=== PATIENT | male | born 1950 | race Caucasian/White ===

== ENCOUNTER 2020-01-06 10:02 | Emergency (ER) | payer MEDICAID, SELFPAY ==
[2020-01-06] VITALS (8 sets, daily range): BP systolic 112–144; BP diastolic 65–80; PULSE 61–78; RESP 14–24; TEMP 36.6–37.1; O2SAT 92–98; BMI 27.3
--- NOTE | 2020-01-06 10:03 | HMH.EDGENADL ---
ED Disposition Clinical Impression: Scalp contusion Qualifiers: Encounter type: initial encounter Qualified Code(s): S00.03XA - Contusion of scalp, initial encounter Scalp abrasion Qualifiers: Encounter type: initial encounter Qualified Code(s): S00.01XA - Abrasion of scalp, initial encounter Fall Qualifiers: Encounter type: initial encounter Qualified Code(s): W19.XXXA - Unspecified fall, initial encounter Disposition: Home Health Service Condition on Discharge: Good Instructions: How to Prevent Falls, DI for Closed Head Injury Additional Instructions: Additional instructions for HEAD INJURY: See your physician as soon as possible for further evaluation. Return immediately if severe headache, vomiting, problems with vision or speech, numbness or weakness of the extremities, or severe neck pain. Referrals: Freddie Willis MD [Primary Care Provider] - - Critical Care Critical Care Time: No Attestation: On , the high probability of a clinically significant, sudden or life threatening deterioration of the following system(s) required my full and direct attention, intervention and personal management. The time I documented below is in addition to time spent performing reported procedures but includes the following listed in this critical care notation. Medical Decision Making - Medical Records Medical records reviewed: Yes: I reviewed the patient's medical records. MR Comment: No prior ED visits or admissions. - Nicolás Inquiry Pt receiving controlled substance: No Vital Signs: 01/06/20 10:03 01/06/20 10:56 01/06/20 11:03 Temperature 98.7 F Temperature Source Oral Pulse Rate [Radial] 78 70 67 Respiratory Rate 14 24 18 Blood Pressure [Right Arm] 137/80 119/72 112/71 Blood Pressure Mean [Right Arm] 99 87 84 Blood Pressure Source [Right Arm] Automatic Cuff Automatic Cuff Blood Pressure Position [Right Arm] Sitting Sitting Sitting 02 Sat by Pulse Oximetry 98 93 L 92 L Oxygen Delivery Method Room Air Room Air Room Air 01/06/20 11:30 Temperature Temperature Source Pulse Rate [Radial] 65 Respiratory Rate 18 Blood Pressure [Right Arm] 114/68 Blood Pressure Mean [Right Arm] 83 Blood Pressure Source [Right Arm] Automatic Cuff Blood Pressure Position [Right Arm] Sitting 02 Sat by Pulse Oximetry 94 L Oxygen Delivery Method Room Air - ECG Data Tracing #1 EKG interpreted by Alexis Kasper MD: Rhythm: sinus Rate: 76 [place]: normal Ectopy: none Conduction: normal ST Segment Changes: none T Wave Changes: none Q Waves: none No evidence of acute ischemia or injury Baseline wander present, but I consider the EKG adequate for accurate interpretation. - Physician Consults Physician Consulted: Lazaro Time: 11:40 Reason -: Pt condition Comment/Response: Return to [facility] [address] General Adult HPI - General Chief complaint: Fall Stated complaint: FALL Time Seen by Provider: 01/06/20 10:03 - History of Present Illness HPI narrative: Brought in by ambulance from [facility] for a fall. He states he was in the bathroom, lost his footing and stumbled and fell. Denies being dizzy or having syncope. Says that he hit the back of his head. He remembers the fall. Denies headache or neck pain. Denies any injury to hips or wrists or any other part of his body. He was noted to have a bump on the back of his head and was sent to make sure he does not have a concussion . - Related Data Home Medications Medication Instructions Recorded Confirmed Benztropine Mesylate [Cogentin 1mg 1 mg PO TID 01/06/20 01/06/20 tablet] Escitalopram Oxalate [Lexapro] 10 mg PO ONCE 01/06/20 01/06/20 Ibuprofen [Motrin 800mg Tab] 800 mg PO Q8HP PRN 01/06/20 01/06/20 dilTIAZem HCL [Diltiazem 24Hr ER] 360 mg PO ONCE 01/06/20 01/06/20 diphenhydrAMINE HCL [Benadryl 25mg 25 mg PO Q4-6H 01/06/20 01/06/20 Capsule] haloperidoL [Haldol 5mg tablet] 5 mg PO ONCE 01/06/20 01/06/20 haloperidoL [Hald
--- NOTE | 2020-01-06 10:11 | CT_ITS ---
PROCEDURE: CT HEAD/BRAIN WO CON CLINICAL INDICATION: fell Head injury with headache/pain, contusion, abrasion or hematoma COMPARISON: No exams were available for comparison TECHNIQUE: Axial images obtained. All CT scans at the facility use one or more dose reduction, viz: automated exposure control, ma/kV adjustment per patient size (including targeted exams where dose is matched to indication, i.e. head), or iterative reconstruction technique. FINDINGS: No midline shift, mass effect, intracranial hemorrhage, hydrocephalus, or extra-axial fluid collection is evident. There is generalized atrophy with hypoattenuation of the periventricular white matter consistent with microangiopathic changes. The calvarium has an unremarkable appearance. No mastoid effusion. No sinus air-fluid level. There is some mild soft tissue swelling in the occipital region of the scalp. Mild mucosal thickening is present within the ethmoid sinuses. IMPRESSION: No acute intracranial finding Dictated by: Tino Vergara MD 01/06/2020 10:51 Tino Vergara MD in [place] 01/06/2020 10:51
--- NOTE | 2020-01-06 10:12 | CT_ITS ---
PROCEDURE: CT CERVICAL SPINE WO CON CLINICAL INDICATION: fell Neck injury with pain, contusion/abrasion or hematoma, cervical sprain/strain the COMPARISON: No exams were available for comparison TECHNIQUE: Axial images obtained with sagittal and coronal reformats. All CT scans at the facility use one or more dose reduction, viz: automated exposure control, ma/kV adjustment per patient size (including targeted exams where dose is matched to indication, i.e. head), or iterative reconstruction technique. Axial spiral CT scanning performed of the cervical spine beginning at the base of the skull and continuing to the upper T-spine. 3-D multiplanar reconstruction with 3-D manipulation of volumetric data set in image rendering was completed by the radiologist and/or technologist with the supervision of the radiologist on independent workstation. FINDINGS: There is normal alignment with mild multilevel cervical spondylosis. No acute fracture or dislocation is evident. Degenerative spurring noted at the atlantoaxial junction with osteosclerosis. C2-C3: Small central disc osteophyte complex slightly eccentric to the right with degenerative disc disease. C3-C4: Degenerate disc disease with prominent facet and uncovertebral hypertrophy on the right with right paracentral and foraminal disc osteophyte complex with canal stenosis and severe right lateral recess and foraminal narrowing. C4-C5: Degenerate disc disease with small central disc osteophyte complex C 5 C6: Degenerative disc disease with endplate ridging C6-C7: Degenerate disc disease with endplate ridging and left-sided foraminal lateral recess narrowing. Lung apices are clear. IMPRESSION: 1. No acute fracture. 2. Multilevel cervical spondylosis as detailed above. Dictated by: Tino Vergara MD 01/06/2020 10:55 Tino Vergara MD in [facility] 01/06/2020 10:55
--- NOTE | 2020-01-06 10:13 | ECG_ITS ---
APPROVED REPORT Exam: Resting ECG HR:76 bpm ECG Measurements Heart Rate 76 AXES DE 120 P 71 QRSd 92 QRS -18 QT 436 T 42 QTc 490 Conclusion Normal sinus rhythm Nonspecific T wave abnormality Prolonged QT Abnormal ECG Electronically signed by : Laurent Singh, 01/06/2020 19:04:52
--- NOTE | 2020-01-06 10:24 | PC.NURSE ---
Patient going to radiology
--- NOTE | 2020-01-06 10:46 | PC.NURSE ---
Patient returning from radiology
--- NOTE | 2020-01-06 11:52 | PC.NURSE ---
Calling [facility] to give report and let them known he is ready.
== END 2020-01-06 12:46 | disposition home health service (06) ==
PROVIDERS: Emergency Provider Emergency Medicine; PCP Emergency Medicine
DX: S00.03XA Contusion of scalp, initial encounter (principal); S00.01XA Abrasion of scalp, initial encounter; W01.0XXA Fall on same level from slipping, tripping and stumbling without subsequent striking against object, initial encounter; Y92.192 Bathroom in other specified residential institution as the place of occurrence of the external cause; Z79.899 Other long term (current) drug therapy
CPT/HCPCS: 70450; 72125; 93005; 99284

== ENCOUNTER 2020-03-04 16:12 | Inpatient (IN) | payer OTHER, SELFPAY ==
[2020-03-04 16:13] VITALS: BP 125/95; PULSE 98; RESP 18; TEMP 37.8; O2SAT 98; BMI 25.7; BMI 257659.5
[2020-03-04 16:32] VITALS: BP 133/92; PULSE 96; O2SAT 95
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
[2020-03-04 17:32] LABS: Basophils % 0.3 % (0.1-2.0); Eosinophils # 0.1 K/mm3 (0.0-0.4); Hematocrit 40.3 % (42.0-52.0); Hemoglobin 13.1 g/dL (14.1-18.0); Lymphocytes # 1.1 K/mm3 (0.7-4.5); Lymphocytes % 14.9 % (10-50); Mean Corpuscular HGB Conc 32.6 g/dL (31.8-35.4); Mean Corpuscular Hemoglobin 28.6 pg (27.0-31.2); Mean Corpuscular Volume 87.6 fl (80-94); Mean Platelet Volume 8.5 fl (7.4-10.4); Monocytes # 0.4 K/mm3 (0.1-1.0); Monocytes % 5.4 % (1.7-9.3); Neutrophils # 5.8 K/mm3 (1.8-7.8); Neutrophils % 78.4 % (37.0-80.0); Platelet Count 159 K/mm3 (142-424); Red Cell Distribution Width 13.5 % (11.5-17.5); White Blood Count 7.5 K/mm3 (4.8-10.8)
[2020-03-04 17:38] LABS: Chloride 103 mmol/L (98-107); Potassium 3.6 mmoL/L (3.5-5.1); Sodium 139 mmol/L (136-145)
[2020-03-04 17:41] LABS: Alanine Aminotransferase 17 U/L (12-78); Albumin Level 3.9 g/dl (3.5-5.0); Albumin/Globulin Ratio 1.2 (1.1-1.8); Alkaline Phosphatase 69 U/L (38-126); Anion Gap 9.6 mEq/L (5-15); Aspartate Amino Transferase 27 U/L (17-59); Bilirubin,Total 0.9 mg/dl (0.2-1.3); Blood Urea Nitrogen 14 mg/dl (9-20); Carbon Dioxide 30 mmol/L (22.0-30.0); Creatinine Clearance Estimated 86 mL/min (50-200); Estimated Glomerular Filt Rate 96 ml/min (>60); GFR (African American) 116 ML/MIN (>60); Globulin 3.3 g/dL (1.3-3.2); Total Protein,Serum 7.2 g/dl (6.3-8.2)
[2020-03-04 17:42] LABS: Calcium 9.3 mg/dl (8.4-10.2); Glucose 117 mg/dl (74-100)
[2020-03-04 17:43] VITALS: BP 137/91; PULSE 93
--- NOTE | 2020-03-04 17:51 | HMH.EDGENADL ---
ED Disposition Clinical Impression: Closed left hip fracture Qualifiers: Encounter type: initial encounter Qualified Code(s): S72.002A - Fracture of unspecified part of neck of left femur, initial encounter for closed fracture Pulmonary emboli Qualifiers: Pulmonary embolism type: unspecified Chronicity: acute Acute cor pulmonale presence: without acute cor pulmonale Qualified Code(s): I26.99 - Other pulmonary embolism without acute cor pulmonale Disposition: Admitted As Inpatient Condition on Discharge: Good - Critical Care Critical Care Time: No Attestation: On 03/04/20, the high probability of a clinically significant, sudden or life threatening deterioration of the following system(s) required my full and direct attention, intervention and personal management. The time I documented below is in addition to time spent performing reported procedures but includes the following listed in this critical care notation. Medical Decision Making - Nicolás Inquiry Pt receiving controlled substance: Yes Nicolás was queried for this patient: No Reason not queried -: Emergent pt cond-no time Risks and benefits of using a controlled substance: were not discussed with pt by me Vital Signs: 03/04/20 16:13 03/04/20 16:32 03/04/20 17:43 Temperature 100.1 F H Temperature Source Oral Pulse Rate [Radial] 98 H 96 H 93 H Respiratory Rate 18 Blood Pressure [Right Arm] 125/95 H 133/92 H 137/91 H Blood Pressure Mean [Right Arm] 105 105 106 Blood Pressure Position [Right Arm] Sitting 02 Sat by Pulse Oximetry 98 95 Oxygen Delivery Method Room Air Room Air - Lab Data Lab results reviewed: Yes: I reviewed the patient's lab results. Lab Results 03/04/20 17:22: WBC 7.5, RBC 4.60, Hgb 13.1 L, Hct 40.3 L, MCV 87.6, MCH 28.6, MCHC 32.6, RDW 13.5, Plt Count 159, MPV 8.5, Neut % (Auto) 78.4, Lymph % (Auto) 14.9, [place] % (Auto) 5.4, Eos % (Auto) 1.0, Baso % (Auto) 0.3, Neut # (Auto) 5.8, Lymph # (Auto) 1.1, [place] # (Auto) 0.4, Eos # (Auto) 0.1, Baso # (Auto) 0.0 03/04/20 17:22: Sodium 139, Potassium 3.6, Chloride 103, Carbon Dioxide 30, Anion Gap 9.6, BUN 14, Creatinine 0.80, Estimated Creat Clear 86, Estimated GFR 96, Est GFR ( Amer) 116, Glucose 117 H, Calcium 9.3, Total Bilirubin 0.9, AST 27, ALT 17, Alkaline Phosphatase 69, Troponin I < 0.01, Total Protein 7.2, Albumin 3.9, Globulin 3.3 H, Albumin/Globulin Ratio 1.2 03/04/20 17:22: SARS-CoV-2 IgG Ab (Rapid) Negative, SARS-CoV-2 IgM Ab (Rapid) Negative Result diagrams: 03/04/20 17:22 03/04/20 17:22 Orders (Tests/Meds): ED MEDICATIONS Generic Name Dose Route Start Last Admin Trade Name Freq PRN Reason Stop Dose Admin Iopamidol 75 ml 03/04/20 19:06 03/04/20 19:08 Iopamidol-370 (76%);100ml Bottle IV 03/04/20 19:07 75 ml ONCE ONE Administration Sodium Chloride 50 ml 03/04/20 19:06 03/04/20 19:08 0.9 % Sodium Chloride 50 Ml Vial IV 03/04/20 19:07 50 ml ONCE ONE Administration Sodium Chloride 10 ml 03/04/20 19:06 03/04/20 19:08 Sodium Chloride 0.9% 10ml Syr (Rad Only) IV 03/04/20 19:07 10 ml ONCE ONE Administration Discontinued Medications Generic Name Dose Route Start Last Admin Trade Name Freq PRN Reason Stop Dose Admin Morphine Sulfate 4 mg 03/04/20 17:57 03/04/20 18:08 Morphine 4mg/Ml Syringe IV 03/04/20 17:58 4 mg ONCE ONE Administration Ondansetron HCl 4 mg 03/04/20 17:57 03/04/20 18:08 Ondansetron 4mg/2ml Vial IV 03/04/20 17:58 4 mg ONCE ONE Administration ORDERS Category Date Time Status CT angio chest Stat Cat Scan 03/04/20 18:23 Taken Femur XR left 2 views [XR femur LT 2V] Stat Exams 03/04/20 17:56 Taken Full Resp Panel w/COVID ([facility]) Routine Lab 01/28/21 18:53 Ordered Troponin I Q3H Lab 03/04/20 19:41 Received Troponin I Q3H Lab 03/04/20 22:45 Ordered Urinalysis and Microscopic Stat Lab 03/04/20 16:32 Ordered - Radiology Data #1 Image(s): Chest, Hip, Femur Image Review
[2020-03-04 17:54] LABS: Troponin I < 0.01 ng/ml (0.00-0.034)
--- NOTE | 2020-03-04 17:56 | XR_ITS ---
PROCEDURE: XR FEMUR LT 2V CLINICAL INDICATION: fall, pain Posttraumatic pain COMPARISON: CR XR HIP LT 2-3V W/PELVIS from 03/04/2020 FINDINGS: There is a minimally displaced intertrochanteric fracture of the femur. The mid distal aspect of the femur shows no acute finding. Mild osteoarthritic changes are present knee. IMPRESSION: Minimally displaced intertrochanteric fracture of the left hip Dictated by: Tino Vergara MD 03/05/2020 05:51 Tino Vergara MD in [place] 03/05/2020 05:51
[2020-03-04 18:00] LABS: Coronavirus 19 IgG Antibody Negative (Negative); Coronavirus 19 IgM Antibody Negative (Negative)
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
[2020-03-04 19:55] LABS: Adenovirus,PCR Not Detected (NotDetected); Bordetella Pertussis Not Detected (NotDetected); Chlamydophila Pneumoniae, PCR Not Detected (NotDetected); Coronavirus 19, PCR Not Detected (NotDetected); Coronavirus 229E Not Detected (NotDetected); Coronavirus NL63 Not Detected (NotDetected); Coronavirus OC43 Not Detected (NotDetected); Coronovirus HKU1,PCR Not Detected (NotDetected); Human Metapneumovirus Not Detected (NotDetected); Influenza A, PCR Not Detected (NotDetected); Influenza AH1, 2009 Not Detected (NotDetected); Influenza AH1, PCR Not Detected (NotDetected); Influenza AH3,PCR Not Detected (NotDetected); Influenza B, PCR Not Detected (NotDetected); Mycoplasma Pneumoniae, PCR Not Detected (NotDetected); Parainfluenza 1, PCR Not Detected (NotDetected); Parainfluenza 2, PCR Not Detected (NotDetected); Parainfluenza 3, PCR Not Detected (NotDetected); Parainfluenza 4, PCR Not Detected (NotDetected); Respiratory Syncytial Virus Not Detected (NotDetected); Rhinovirus/Enterovirus Not Detected (NotDetected)
--- NOTE | 2020-03-04 20:30 | PC.NURSE ---
called and spoke with lab, was told 48 minutes left
[2020-03-04 20:31] LABS: Troponin I < 0.01 ng/ml (0.00-0.034)
[2020-03-04 21:28] VITALS: BP 121/80; PULSE 73; RESP 16; TEMP 36.8; O2SAT 98
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
[2020-03-04 21:35] VITALS: BP 118/70; PULSE 105; RESP 18; TEMP 37.1; O2SAT 97; BMI 25.4
--- NOTE | 2020-03-04 21:35 | PC.NURSE ---
patient up to floor via stretcher.
[2020-03-04 22:00] VITALS: RESP 18; O2SAT 97
--- NOTE | 2020-03-05 02:06 | PC.NURSE ---
pt can answer orientation questions, but is unable to answer any questions about his medical history, pt refuses to let me roll him to check his bottom, states that he does not have any open or reddened areas on bottom or anywhere else on body
--- NOTE | 2020-03-05 03:02 | PC.NURSE ---
med rec from [facility] does not have times or dates that medications were last given
[2020-03-05 04:00] VITALS: BP 112/71; PULSE 85; TEMP 36.5; O2SAT 95
[2020-03-05 05:44] VITALS: BMI 25.3
--- NOTE | 2020-03-05 06:58 | PC.NURSE ---
pt was combative when arriving to floor, tried to swing at nurses, pt was given night time medications and has been cooperative since, has complained of pain one time this morning and was treated per APR, pt has been NPO since midnight
[2020-03-05 08:00] VITALS: BP 113/71; PULSE 65; RESP 17; TEMP 36.7; O2SAT 92
--- NOTE | 2020-03-05 08:05 | HMH.PHAVTE ---
[facility] Pharmacy VTE Monitoring - Patient Demographics Admission date: 03/04/20 Report Date: 03/05/20 Time: 08:05 Allergies/Adverse Reactions: Patient Allergies No Known Allergies Allergy (Verified 01/06/20 10:15) Height: 1.73 m Weight: 75.841 kg Patient Problems: Current Active Problems Closed left hip fracture (Acute) Pulmonary emboli (Acute) - VTE Risk Labs: VTE Related Lab Results Hgb 13.1 g/dL (14.1-18.0) L 03/04/20 17:22 Hct 40.3 % (42.0-52.0) L 03/04/20 17:22 Plt Count 159 K/mm3 (142-424) 03/04/20 17:22 BUN 14 mg/dl (9-20) 03/04/20 17:22 Creatinine 0.80 mg/dl (0.66-1.25) 03/04/20 17:22 Estimated Creat Clear 86 mL/min (50-200) 03/04/20 17:22 Was VTE Risk Assessment Performed: Yes VTE Score: 4 VTE Risk Level: Low Risk Clinical Trial Participant: No - Prophylaxis VTE Prophylaxis Ordered?: Yes Types of VTE Prophylaxis: Pharmacological Pharmacologic Type: Enoxaparin
--- NOTE | 2020-03-05 09:31 | HMH.ACPN2 ---
Internal Medicine - PN: Subj *Date: 03/05/20 *Time: 08:20 Interval history: pt laying in bed, states no c/o. Exam Vital signs and Labs for Last 24 Hours: Temp Pulse Resp BP Pulse Ox 98.0 F 65 17 113/71 92 L 03/05/20 08:00 03/05/20 08:00 03/05/20 08:00 03/05/20 08:00 03/05/20 08:00 Laboratory Results - last 24 hr 03/04/20 17:22: WBC 7.5, RBC 4.60, Hgb 13.1 L, Hct 40.3 L, MCV 87.6, MCH 28.6, MCHC 32.6, RDW 13.5, Plt Count 159, MPV 8.5, Neut % (Auto) 78.4, Lymph % (Auto) 14.9, [place] % (Auto) 5.4, Eos % (Auto) 1.0, Baso % (Auto) 0.3, Neut # (Auto) 5.8, Lymph # (Auto) 1.1, [place] # (Auto) 0.4, Eos # (Auto) 0.1, Baso # (Auto) 0.0 03/04/20 17:22: Sodium 139, Potassium 3.6, Chloride 103, Carbon Dioxide 30, Anion Gap 9.6, BUN 14, Creatinine 0.80, Estimated Creat Clear 86, Estimated GFR 96, Est GFR ( Amer) 116, Glucose 117 H, Calcium 9.3, Total Bilirubin 0.9, AST 27, ALT 17, Alkaline Phosphatase 69, Troponin I < 0.01, Total Protein 7.2, Albumin 3.9, Globulin 3.3 H, Albumin/Globulin Ratio 1.2 03/04/20 17:22: SARS-CoV-2 IgG Ab (Rapid) Negative, SARS-CoV-2 IgM Ab (Rapid) Negative 03/04/20 19:25: Chlamy pneumoniae PCR Not detected, Adenovirus (PCR) Not detected, B. pertussis DNA (PCR) Not detected, Coronavirus OC43 (PCR) Not detected, Coronavirus HKU1 (PCR) Not detected, Coronavirus 229E (PCR) Not detected, SARS-CoV-2 (PCR) Not detected, Coronavirus NL63 (PCR) Not detected, Human Metapneumovir PCR Not detected, Influenza A (H1) PCR Not detected, Influ A (H1N1/09) PCR Not detected, Influenza A (H3) PCR Not detected, Influenza Type A (PCR) Not detected, Influenza Type B (PCR) Not detected, M. pneumoniae (PCR) Not detected, Parainfluenza 1 (PCR) Not detected, Parainfluenza 2 (PCR) Not detected, Parainfluenza 3 (PCR) Not detected, Parainfluenza 4 (PCR) Not detected, RSV (PCR) Not detected, Entero/Rhino (PCR) Not detected 03/04/20 19:41: Troponin I < 0.01 I & O for Last 24 hours: Intake & Output 03/02/20 03/03/20 03/04/20 03/05/20 11:59 11:59 11:59 11:59 Weight 167 lb 3.212 oz - Constitutional no acute distress - *Routine HEENT Exam Head: Present: normocephalic Eye: Present: PERRL ENT: Present: mucous membranes moist - *Routine Neck Exam Present: supple. Absent: lymphadenopathy - *Routine Respiratory Exam Present: decreased breath sounds, CTA bilaterally - *Routine Cardiovascular Exam Present: RRR - *Routine Abdominal Exam Present: soft, normoactive bowel sounds. Absent: tenderness - *Routine Extremities Exam Present: normal capillary refill. Absent: cyanosis, clubbing, edema - *Routine Skin Exam Present: warm. Absent: rash - *Routine Neurological Exam Present: alert - Routine Psychiatric Exam Present: normal affect Assessment and Plan (1) Closed left hip fracture Status: Acute Qualifiers: Encounter type: initial encounter Qualified Code(s): S72.002A - Fracture of unspecified part of neck of left femur, initial encounter for closed fracture Category: Medical Code(s): S72.002A - Fracture of unspecified part of neck of left femur, initial encounter for closed fracture (2) Pulmonary emboli Status: Acute Qualifiers: Pulmonary embolism type: unspecified Chronicity: acute Acute cor pulmonale presence: without acute cor pulmonale Qualified Code(s): I26.99 - Other pulmonary embolism without acute cor pulmonale Category: Medical Code(s): I26.99 - Other pulmonary embolism without acute cor pulmonale - Assessment and plan all Dx Assessment and Plan for all problems:: rounded with dr hanson all orders per dr hanson cardiology clearance
--- NOTE | 2020-03-05 09:58 | SW/DCPLANNER ---
Addendum entered by [facility] 03/11/20 09:51: This patient will discharge to [facility] today under private pay. Nikkie with [facility] has stated this patient is good to admit today and payee is involved. COVID swab is negative. Patient information, negative COVID results and 30 day exempt for passr has been faxed. Addendum entered by [facility] 03/10/20 10:38: [facility] has stated they can accept this patient when he is ready for discharge. Patient is private pay and payee has sent payment to [facility] via mail. Patient could potentially discharge tomorrow. COVID swab has been ordered for this patient. Addendum entered by [facility] 03/09/20 13:44: [facility] has stated that she can accept this patient pending payment from payee. Nikkie will be speaking with pay today around 2:30PM regarding payment. I have informed Adriane with [facility] that patient has found placement elsewhere. I will continue to follow up with [facility]. Addendum entered by [facility] 03/08/20 14:05: This patient will have surgery tomorrow. I have updated [facility] and [facility]. Addendum entered by [facility] 03/05/20 14:02: Adriane from [facility] has stated she can accept this patient as well. Addendum entered by [facility] 03/05/20 13:59: [facility] has refused this patient. Patient will not have surgery today. Nikkie has been updated. Addendum entered by [facility] 03/05/20 12:54: I have spoke with Meir at [facility] regarding this patient. [facility] has stated that patient does have [facility] and a Payee ([facility] [phone]) and is private pay for everything. Payee stated to [facility] that patient would be fine to pay private pay at a nursing facility due to only have presumptive Medicaid at this time. At this time [facility] is reviewing patient information for private pay. Addendum entered by [facility] 03/05/20 11:39: Patient information has also been faxed to [facility] and [facility]. Original Note: Prior to [facility] admission patient was a resident at [facility]. Patient is admitted for hip fx. This patient will need placement at time of discharge. I have spoke with Karen at [facility] whom stated they do have beds available. [facility] is currently not accepting admissions at this time. I have faxed patient information to [facility] for Karen to review. Ortho has been consulted and will evaluate this patient today. I will continue to follow up with Karen from [facility] and [facility].
--- NOTE | 2020-03-05 10:50 | CA_ITS ---
APPROVED REPORT EXAM: Comprehensive 2D, Doppler, and color-flow Echocardiogram Archives Director: Frieda Olivo RVT Ht: 5 ft 8 in Wt: 167lbs BSA: 1.89 BP: 137/91 mmHg Indications: PRE-OP, LT HIP FX,PE TDS-PT FLAT ON BACK,LIMITED WINDOWS 2D Dimensions IVSd 1.08 cm M: 0.6-1.2 LVEF (Visual) 52.90 % PWd 1.12 cm M: 0.6 - 1.2 LVDd 3.78 cm M: 4.2 - 5.9 LVDs 2.77 cm M: 2.5 - 4.0 LVOT 2.39 cm (M/F) 1.5-2.5 M-Mode Dimensions LA Diam 3.95 cm (1.9-4.0) Ao Diam 3.95 cm (2.0-3.7) LV Diastology E Decel Time 160.00 (160-240 msec) E/A Ratio 0.8 MED E' 9.20 (< 7 cm/sec) E'/MED E' Ratio 4.55 (>14) LAT E' 9.40 (<10 cm/sec) E/LAT E' Ratio 4.46 (>14) Mitral Valve MV E Max Alex. 42.00 (40-130 cm/s) MV A Velocity 51.00 (40-130 cm/s) E/A Ratio 0.82 MV Decel. Time 160.00 (160-240 ms) MV PHT 47.00 ms Left Ventricle Left atrium is mildly enlarged, left ventricle is normal size, mild concentric left ventricular hypertrophy, visually estimated ejection fraction 55% with no regional wall motion abnormality. Diastolic parameters are inconclusive. Right Ventricle Right atrium and right ventricle mildly enlarged with normal contractility. Aortic Valve Aortic valve is minimally thickened and fibrosed. There is no aortic stenosis or aortic insufficiency. Mitral Valve Mitral valve is grossly normal, there is trace mitral regurgitation. Tricuspid Valve Tricuspid valve is grossly normal, there is trace tricuspid regurgitation, tricuspid regurgitation jet velocity is inadequate for calculation of the right ventricular systolic pressure. Pulmonic Valve Pulmonic valve is poorly visualized. Great Vessels Aortic root is normal size. Pericardium No significant pericardial effusion noted. Conclusion 1. Technically difficult study because of the patient factors and poor acoustic windows. Mild biatrial alignment, normal left ventricular size, mild concentric left ventricular hypertrophy, visually estimated ejection fraction 55% with no regional wall motion abnormality. 2. Mildly enlarged right ventricle with normal contractility. 3. Trace mitral and tricuspid regurgitation. 4. No significant pericardial effusion noted. Electronically signed by : Aguila Mcintosh, 03/05/2020 16:01:01
--- NOTE | 2020-03-05 11:04 | PC.NURSE ---
notified Pulmonology clinic of consult.
--- NOTE | 2020-03-05 11:05 | PC.NURSE ---
notified cardiology of consult.
--- NOTE | 2020-03-05 11:15 | CA_ITS ---
APPROVED REPORT Bilateral Lower Extremity Venous Study for DVT. [employer]: Frieda Olivo RVT Indications Pulmonary Embolism PE, LT HIP FX Vein Imaging CFV (R): compressive, spontaneous, phasic, augmentation FEM (R): compressive, spontaneous, phasic, augmentation POP (R): compressive, spontaneous, phasic, augmentation PTV (R): Compressible GSV (R): Compressible Peroneals (R):Compressible GAS (R): Compressible CFV (L): compressive, spontaneous, phasic, augmentation FEM (L): compressive, spontaneous, phasic, augmentation POP (L): compressive, spontaneous, phasic, augmentation PTV (L): Thrombus GSV (L): Compressible Peroneals (L):Compressible GAS (L): Compressible Findings Study suggests a thrombus in the left posterior tibial vein and left soleal vein. Other deep veins of the left lower extremity are normal. No DVT seen in the right lower extremity. Conclusion Study suggests a thrombus in the left posterior tibial vein and left soleal vein. Other deep veins of the left lower extremity are normal. No DVT seen in the right lower extremity. Critical Notification Physician Notified Date: 03/05/2020 Time: 12:22 Physician Name: Dr Santoyo Electronically signed by : Tino Vergara MD 03/05/2020 16:52:29
--- NOTE | 2020-03-05 11:42 | HMH.PULMCON ---
*Admission Date: 03/04/20 *Reason for consult:: Pulmonary embolism *History of present illness: 69-year-old male alf resident presented to the ED status post fall with intertrochanteric hip fracture and was also found to have right-sided pulmonary embolism and pulmonary was called for further management. Patient denies any cough or prior respiratory complaints. Patient denies any chest pain or hemoptysis. [facility] History Medical History: Reports:: Hypertension *Have you ever received a pneumonia vaccine?: No *Have you received a flu vaccine this season?: Yes - *Social History Smoking Status: Unknown if ever smoked Alcohol Intake: never *Occupational Status:: disabled Housing: alf *Travel in the last 8 weeks: None Family Hx:: Unable to obtain ROS - Review of Systems Review of systems limited as patient is having flat affect not not willing to answer to the questions - Resp Respiratory: Denies shortness of breath, Denies change in phlegm color, Denies chest congestion, Denies cough, Denies non-productive cough, Denies dyspnea on exertion, Denies excessive phlegm production, Denies coughing up blood, Denies pain on inspiration, Denies pain with cough, Denies cough with sputum production, Denies pain with breathing Meds Home Medications Medication Instructions Recorded Confirmed Type Benztropine Mesylate [Cogentin 1mg 1 mg PO TID 01/06/20 03/04/20 History tablet] Escitalopram Oxalate [Lexapro] 10 mg PO DAILY 01/06/20 03/05/20 History Ibuprofen [Motrin 800mg Tab] 800 mg PO Q8HP PRN 01/06/20 03/04/20 History dilTIAZem HCL [Diltiazem 24Hr ER] 360 mg PO DAILY 01/06/20 03/05/20 History diphenhydrAMINE HCL [Benadryl 25mg 25 mg PO Q4-6H 01/06/20 03/04/20 History Capsule] haloperidoL [Haldol 5mg tablet] 5 mg PO DAILY 01/06/20 03/05/20 History haloperidoL [Haldol 5mg tablet] 10 mg PO HS 01/06/20 03/05/20 History Allergies Allergy/AdvReac Type Severity Reaction Status Date / Time No Known Allergies Allergy Verified 01/06/20 10:15 Exam - Constitutional Constitutional:: Present: no acute distress, comfortable - HENMT Exam HENMT: Present: normocephalic, atraumatic - Eye Exam Eyes:: Present: eyelids normal - Neck Exam Neck:: Present: normal visual inspection - Respiratory Exam Respiratory:: Present: able to speak in complete sentences, lungs clear, normal breath sounds, no respiratory distress, normal respiratory effort - Cardiovascular Exam Cardiac:: Present: S1, S2 - GI Exam GI:: Present: soft - Skin Exam Skin: Present: warm, no rash - Neurological Exam Neurological: Present: alert, awake - Extremities Exam Extremities: Present: no cyanosis, no clubbing, no edema Internal Medicine - CN: Reslt - Labs CBC & Chem 7: 03/04/20 17:22 03/04/20 17:22 Labs: Short CBC 03/04/20 Range/Units 17:22 WBC 7.5 (4.8-10.8) K/mm3 Hgb 13.1 L (14.1-18.0) g/dL Hct 40.3 L (42.0-52.0) % Plt Count 159 (142-424) K/mm3 BMP 03/04/20 17:22 Sodium 139 Potassium 3.6 Chloride 103 Carbon Dioxide 30 BUN 14 Creatinine 0.80 Glucose 117 H Calcium 9.3 Cardiac Enzymes 03/04/20 03/04/20 Range/Units 17:22 19:41 Troponin I < 0.01 < 0.01 (0.00-0.034) ng/ml Liver Function 03/04/20 Range/Units 17:22 Total Bilirubin 0.9 (0.2-1.3) mg/dl AST 27 (17-59) U/L ALT 17 (12-78) U/L Alkaline Phosphatase 69 (38-126) U/L Albumin 3.9 (3.5-5.0) g/dl Assessment and Plan (1) Closed left hip fracture Status: Acute Qualifiers: Encounter type: initial encounter Qualified Code(s): S72.002A - Fracture of unspecified part of neck of left femur, initial encounter for closed fracture Category: Medical Code(s): S72.002A - Fracture of unspecified part of neck of left femur, initial encounter for closed fracture (2) Pulmonary emboli Status: Acute Qualifiers: Pulmonary embolism type: unspecified Chronicity: acute A
--- NOTE | 2020-03-05 12:14 | HMH.ORTHOCON ---
*Admission Date: 03/04/20 *Reason for consult:: L hip fracture *History of present illness: 69-year-old gentleman admitted overnight through the ER with a left hip fracture. He is a resident of [facility]. He states that he was getting ready for bed when he fell, landing on his left side and injuring the hip. He reports pain in the hip that radiates down to the knee. No loss of consciousness during the fall, no injury reported to the head, neck, chest, abdomen or back. Further investigation in the ER discovered that he has right-sided pulmonary emboli. It is unknown when these appeared or DVT are present in the lower extremities. He denies any cough or respiratory complaints, no chest pain or hemoptysis. The patient has some history of psychiatric issues and is not able to describe his medical history. Per documentation he appears to be in fairly good health. No baseline anticoagulant use. No known recent exposure to or infection with COVID-19. [facility] History I have reviewed the patient's past medical history: Yes Medical History: Reports:: Hypertension *Have you ever received a pneumonia vaccine?: No *Have you received a flu vaccine this season?: Yes - *Social History Smoking Status: Unknown if ever smoked Alcohol Intake: never *Occupational Status:: disabled Housing: fdc *Travel in the last 8 weeks: None Family Hx:: Unable to obtain Review of Systems - Review of Systems Review of systems:: pertinent systems reviewed and negative unless documented below - *Neurologic Reports abnormal walking, Reports unsteadiness, Denies behavioral changes, Denies confusion, Denies headache(s), Denies numbness, Denies fainting, Denies weakness Meds Home Medications Medication Instructions Recorded Confirmed Type Benztropine Mesylate [Cogentin 1mg 1 mg PO TID 01/06/20 03/04/20 History tablet] Escitalopram Oxalate [Lexapro] 10 mg PO DAILY 01/06/20 03/05/20 History Ibuprofen [Motrin 800mg Tab] 800 mg PO Q8HP PRN 01/06/20 03/04/20 History dilTIAZem HCL [Diltiazem 24Hr ER] 360 mg PO DAILY 01/06/20 03/05/20 History diphenhydrAMINE HCL [Benadryl 25mg 25 mg PO Q4-6H 01/06/20 03/04/20 History Capsule] haloperidoL [Haldol 5mg tablet] 5 mg PO DAILY 01/06/20 03/05/20 History haloperidoL [Haldol 5mg tablet] 10 mg PO HS 01/06/20 03/05/20 History Allergies Allergy/AdvReac Type Severity Reaction Status Date / Time No Known Allergies Allergy Verified 01/06/20 10:15 Exam Vital signs and Labs for Last 24 Hours: Temp Pulse Resp BP Pulse Ox 98.0 F 65 17 113/71 92 L 03/05/20 08:00 03/05/20 08:00 03/05/20 08:00 03/05/20 08:00 03/05/20 08:00 Laboratory Results - last 24 hr 03/04/20 17:22: WBC 7.5, RBC 4.60, Hgb 13.1 L, Hct 40.3 L, MCV 87.6, MCH 28.6, MCHC 32.6, RDW 13.5, Plt Count 159, MPV 8.5, Neut % (Auto) 78.4, Lymph % (Auto) 14.9, [place] % (Auto) 5.4, Eos % (Auto) 1.0, Baso % (Auto) 0.3, Neut # (Auto) 5.8, Lymph # (Auto) 1.1, [place] # (Auto) 0.4, Eos # (Auto) 0.1, Baso # (Auto) 0.0 03/04/20 17:22: Sodium 139, Potassium 3.6, Chloride 103, Carbon Dioxide 30, Anion Gap 9.6, BUN 14, Creatinine 0.80, Estimated Creat Clear 86, Estimated GFR 96, Est GFR ( Amer) 116, Glucose 117 H, Calcium 9.3, Total Bilirubin 0.9, AST 27, ALT 17, Alkaline Phosphatase 69, Troponin I < 0.01, Total Protein 7.2, Albumin 3.9, Globulin 3.3 H, Albumin/Globulin Ratio 1.2 03/04/20 17:22: SARS-CoV-2 IgG Ab (Rapid) Negative, SARS-CoV-2 IgM Ab (Rapid) Negative 03/04/20 19:25: Chlamy pneumoniae PCR Not detected, Adenovirus (PCR) Not detected, B. pertussis DNA (PCR) Not detected, Coronavirus OC43 (PCR) Not detected, Coronavirus HKU1 (PCR) Not detected, Coronavirus 229E (PCR) Not detected, SARS-CoV-2 (PCR) Not detected, Coronavirus NL63 (PCR) Not detected, Human Metapneumovir PCR Not detected, Influenza A (H1) PCR Not detected, Influ A (H1N1/09) PCR Not detected, Influenza A (H3) PCR Not detected, Influenza Type A (PCR) Not detected, Infl
--- NOTE | 2020-03-05 12:34 | HMH.CNCARD ---
History of Present Illness Consult date: 03/05/20 Requesting physician: Nick Macias Consult reason: pre-op evaluation Chief complaint: Preop and PE Additional Medical History:: 1. Pulmonary embolus (03/05/20) 2. Left hip fracture (03/05/20) 3. Psychiatric disorder History of present illness: 69-year-old male admitted to [facility] with left hip fracture. Patient is a resident of [facility]. Patient states while he was getting ready for bed he fell landing on his left hip. Left leg noted slightly shorter. Patient complains of pain of the left leg. While getting scans of the fall, CT of the chest revealed right-sided pulmonary embolus. After speaking with the radiologist, it is uncertain whether the PE is acute or chronic. Patient was started on Lovenox injections per PCP. Patient denies chest pain, tightness or pressure. Patient denies shortness of breath. No swelling noted of the lower extremities. Patient denies palpitations or dizziness. Patient is a poor historian. Patient does have some psychiatric issues. Initial work-up was performed in the ED. Labs are unremarkable. No EKG was performed in the ED. Discussed plan of care with Dr. Hernandez. Due to the uncertainty of whether or not the pulmonary embolus is acute or chronic we do recommend waiting 72 hours after starting the anticoagulant, this allow full therapeutic effect, to allow the PE clots to organize. Lovenox injections (per pt weight) was started and managed by PCP. Will obtain echocardiogram to assess LV function and valve status. Will obtain ECG. Pending the results of the echocardiogram and ECG, recommendations medication/therapeutic changes may be recommended. CTA of chest: 1. Positive for pulmonary embolus in the right upper right middle and right lower lobe. 2. Mild ectasia of the thoracic aorta but no aneurysm or dissection. 3. Other nonacute findings as described above. Thank you for allowing cardiology to participate in the care of this patient. [facility] History I have reviewed the patient's past medical history: Yes Medical History: Reports:: Hypertension *Have you ever received a pneumonia vaccine?: No *Have you received a flu vaccine this season?: Yes - *Social History Smoking Status: Unknown if ever smoked Alcohol Intake: never *Occupational Status:: disabled Housing: snf *Travel in the last 8 weeks: None Family Hx:: Unable to obtain Meds Home Medications Medication Instructions Recorded Confirmed Type Benztropine Mesylate [Cogentin 1mg 1 mg PO TID 01/06/20 03/04/20 History tablet] Escitalopram Oxalate [Lexapro] 10 mg PO DAILY 01/06/20 03/05/20 History Ibuprofen [Motrin 800mg Tab] 800 mg PO Q8HP PRN 01/06/20 03/04/20 History dilTIAZem HCL [Diltiazem 24Hr ER] 360 mg PO DAILY 01/06/20 03/05/20 History diphenhydrAMINE HCL [Benadryl 25mg 25 mg PO Q4-6H 01/06/20 03/04/20 History Capsule] haloperidoL [Haldol 5mg tablet] 5 mg PO DAILY 01/06/20 03/05/20 History haloperidoL [Haldol 5mg tablet] 10 mg PO HS 01/06/20 03/05/20 History Allergies Allergy/AdvReac Type Severity Reaction Status Date / Time No Known Allergies Allergy Verified 01/06/20 10:15 Exam Vital signs and Labs for Last 24 Hours: Temp Pulse Resp BP Pulse Ox 98.0 F 65 17 113/71 92 L 03/05/20 08:00 03/05/20 08:00 03/05/20 08:00 03/05/20 08:00 03/05/20 08:00 Laboratory Results - last 24 hr 03/04/20 17:22: WBC 7.5, RBC 4.60, Hgb 13.1 L, Hct 40.3 L, MCV 87.6, MCH 28.6, MCHC 32.6, RDW 13.5, Plt Count 159, MPV 8.5, Neut % (Auto) 78.4, Lymph % (Auto) 14.9, [place] % (Auto) 5.4, Eos % (Auto) 1.0, Baso % (Auto) 0.3, Neut # (Auto) 5.8, Lymph # (Auto) 1.1, [place] # (Auto) 0.4, Eos # (Auto) 0.1, Baso # (Auto) 0.0 03/04/20 17:22: Sodium 139, Potassium 3.6, Chloride 103, Carbon Dioxide 30, Anion Gap 9.6, BUN 14, Creatinine 0.80, Estimated Creat Clear 86, Estimated GFR 96, Est GFR ( Amer) 116, Glucose 117 H, Calcium 9.3, Total B
--- NOTE | 2020-03-05 12:45 | ECG_ITS ---
APPROVED REPORT Exam: Resting ECG HR:78 bpm ECG Measurements Heart Rate 78 AXES DC 188 P 6 QRSd 92 QRS -11 QT 428 T 57 QTc 487 Conclusion Normal sinus rhythm Late r wave progression Abnormal ECG Electronically signed by : Laurent Singh, 03/05/2020 18:43:36
[2020-03-05 16:00] VITALS: BP 120/64; PULSE 82; RESP 17; TEMP 37.4; O2SAT 92
--- NOTE | 2020-03-05 17:20 | PC.NURSE ---
Addendum entered by Devante Bond RN 03/05/20 17:21: occured at 1550 Original Note: Went to check on Pt, IV fluids all over the floor and IV laying in the floor, Pt states he took it out because it was bothering him, Pt educated on needing the IV and another one would have to be placed, Pt v/u. 20G IV placed in Lt wrist
--- NOTE | 2020-03-05 18:41 | PC.NURSE ---
Pt has slept most of this shift, Pt a&O x3, BLT lung sounds CTA, bowel sounds present in all 4 quadrants, Pt now has a regular diet, MD has to wait 72 hours to do surgery, Pt can get up to chair as tolerated, Pt IV infusing well in the LT wrist, Pt denies pain, SOA, Headache, N/V.
[2020-03-05 20:00] VITALS: BP 126/52; PULSE 79; RESP 16; TEMP 38.4; O2SAT 93
--- NOTE | 2020-03-05 20:00 | PC.NURSE ---
MAKING PM ROUNDS ORDERS WAS GIVEN TO [facility] FOR THE LOVENOX TO BE DISCONTINUED AND START HEPARIN DRIP NOW PER PHARMACY ORDERS
--- NOTE | 2020-03-05 20:19 | PC.NURSE ---
Addendum entered by Muriel Cuenca RN 03/06/20 00:13: AND ALSO GET A PTT IN 2HOUR AFTER HEPARIN DRIP STARTED Original Note: NOTIFIED PHARMACIST ON CALLED NAZ TO SEE IF A BASELINE PTT NEEDED TO BE DRAWN PRIOR TO HEPARIN BEING STARTED AND HE SAID YES,BUT TO GO ON AND GIVE PT 5000 UNITS IV AND THEN 1300 UNITS PER HOUR DRIP,NO NEED TO WAIT ON RESULTS OF PTT.
[2020-03-05 20:45] VITALS: O2SAT 93
[2020-03-05 21:03] LABS: Activated Partial Thrombo Time 35.3 seconds (23.6-34.0)
--- NOTE | 2020-03-05 21:06 | PC.NURSE ---
REPORT FROM [facility] THAT PT HAD A FEVER OF 101.2 .TYLENOL 650MG GIVEN.WHILE IN ROOM LAB CALLS AND SAID PTT WAS 35.3,CALLED OLIVE FROM PHARMACY AGAIN TO SEE IF OK WITH THE 5000 UNITS OF HEPARIN AND THEN HEPARIN DRIP AT 1300 UNITS PER HOUR AND HE SAID YES.HEPARIN 5000 UNITS AND DRIP VERIFIED WITH [facility].NS GOING AT 50 ML PER PUMP
--- NOTE | 2020-03-05 22:30 | PC.NURSE ---
PT TEMP WAS TAKEN AGAIN AFTER TYLENOL AND IT WAS 99.1
[2020-03-05 22:31] VITALS: TEMP 37.3
[2020-03-05 23:45] LABS: Activated Partial Thrombo Time 162.6 seconds (23.6-34.0)
--- NOTE | 2020-03-05 23:50 | PC.NURSE ---
OLIVE FROM PHARMACY CALLED AND SAID PT PTT WAS 162.6,TO TURN HEPARIN DRIP OFF FOR 1 HOUR AND THEN RESTART IT AT 1200 UNITS PER HR.REPEAT PTT AT 0400
--- NOTE | 2020-03-05 23:55 | PC.NURSE ---
HEPARIN DRIP TURNED OFF AT THIS TIME.PT RESTING WITH EYES CLOSED AT THIS TIME
[2020-03-06 03:15] VITALS: BP 117/63; PULSE 78; RESP 16; TEMP 36.5; O2SAT 94
[2020-03-06 04:25] LABS: Basophils % 0.3 % (0.1-2.0); Eosinophils # 0.1 K/mm3 (0.0-0.4); Eosinophils % 1.6 % (0.1-12.0); Hematocrit 36.4 % (42.0-52.0); Hemoglobin 12.3 g/dL (14.1-18.0); Lymphocytes # 1.7 K/mm3 (0.7-4.5); Lymphocytes % 29.1 % (10-50); Mean Corpuscular HGB Conc 33.8 g/dL (31.8-35.4); Mean Corpuscular Hemoglobin 29.5 pg (27.0-31.2); Mean Corpuscular Volume 87.2 fl (80-94); Mean Platelet Volume 8.9 fl (7.4-10.4); Monocytes # 0.4 K/mm3 (0.1-1.0); Monocytes % 7.1 % (1.7-9.3); Neutrophils # 3.7 K/mm3 (1.8-7.8); Neutrophils % 61.8 % (37.0-80.0); Platelet Count 106 K/mm3 (142-424); Red Blood Count 4.18 M/mm3 (4.60-6.20); Red Cell Distribution Width 13.8 % (11.5-17.5)
[2020-03-06 04:26] LABS: Anion Gap 10.7 mEq/L (5-15); Blood Urea Nitrogen 25 mg/dl (9-20); Calcium 8.7 mg/dl (8.4-10.2); Carbon Dioxide 27 mmol/L (22.0-30.0); Chloride 104 mmol/L (98-107); Creatinine Clearance Estimated 76 mL/min (50-200); Estimated Glomerular Filt Rate 112 ml/min (>60); GFR (African American) 136 ML/MIN (>60); Glucose 121 mg/dl (74-100); Potassium 3.7 mmoL/L (3.5-5.1); Sodium 138 mmol/L (136-145)
[2020-03-06 04:59] LABS: Activated Partial Thrombo Time 94.3 seconds (23.6-34.0)
[2020-03-06 05:00] VITALS: BMI 25.8
--- NOTE | 2020-03-06 05:15 | PC.NURSE ---
OLIVE FROM PHARMACY CALLED AND SAID PTT WAS 94.3,TO DECREASE HEPARIN DRIP TO 1100 UNITS AND REPEAT PTT IN 4 HOURS
--- NOTE | 2020-03-06 06:00 | PC.NURSE ---
PT HAS SLEPT OFF AND ON THROUGHTOUT THE NIGHT.HEPARIN DRIP INFUSING NOW AT 1100UNITS WITH A PTT IN FOR 0930.PT IV HAD TO BE RESTARTED ONCE TONIGHT,SINCE PT PULLED IT OUT,EXPLAINED TO HIM HE NEEDED TO LEAVE IV ALONE,SINCE HE WAS ON A HEPARIN DRIP AND HE WOULD BLEED AT SITE IF PULLED OUT PT AT TIMES CONFUSED,KNOWS HE IS IN A HOSPITAL BUT WHICH ONE
[2020-03-06 08:00] VITALS: BP 125/78; PULSE 75; RESP 20; TEMP 37; O2SAT 93; O2SAT 96
--- NOTE | 2020-03-06 09:50 | P.PN_ITS ---
Internal Medicine - PN: Subj *Date: 03/07/20 *Time: 08:06 Interval history: doing better this am - more alert - on heparin Exam Vital signs and Labs for Last 24 Hours: Temp Pulse Resp BP Pulse Ox 98.6 F 75 20 125/78 93 L 03/06/20 08:00 03/06/20 08:00 03/06/20 08:00 03/06/20 08:00 03/06/20 08:00 Laboratory Results - last 24 hr 03/05/20 20:38: APTT 35.3 H 03/05/20 23:03: APTT 162.6 H* D 03/06/20 04:05: WBC 6.0, RBC 4.18 L, Hgb 12.3 L, Hct 36.4 L, MCV 87.2, MCH 29.5, MCHC 33.8, RDW 13.8, Plt Count 106 L D, MPV 8.9, Neut % (Auto) 61.8, Lymph % (Auto) 29.1, Gage % (Auto) 7.1, Eos % (Auto) 1.6, Baso % (Auto) 0.3, Neut # (Auto) 3.7, Lymph # (Auto) 1.7, Gage # (Auto) 0.4, Eos # (Auto) 0.1, Baso # (A uto) 0.0 03/06/20 04:05: Sodium 138, Potassium 3.7, Chloride 104, Carbon Dioxide 27, Anion Gap 10.7, BUN 25 H D, Creatinine 0.70, Estimated Creat Clear 76, Estimated GFR 112, Est GFR ( Amer) 136, Glucose 121 H, Calcium 8.7 03/06/20 04:05: APTT 94.3 H* D I & O for Last 24 hours: Intake & Output 03/03/20 03/04/20 03/05/20 03/06/20 11:59 11:59 11:59 11:59 Intake Total 480 / 480 Output Total 500 / 500 Balance -20 / -20 Weight 167 lb 3.212 oz 170 lb 4.8 oz - Constitutional no acute distress - *Routine HEENT Exam Head: Present: normocephalic Eye: Present: EOMI, PERRL ENT: Present: mucous membranes dry - *Routine Neck Exam Present: supple - *Routine Respiratory Exam Present: CTA bilaterally - *Routine Cardiovascular Exam Present: RRR - *Routine Abdominal Exam Present: soft - *Routine Extremities Exam Absent: calf tenderness - *Routine Skin Exam Present: intact - *Routine Neurological Exam Present: alert, oriented X3, CN II-XII intact - Routine Psychiatric Exam Present: normal affect Assessment and Plan (1) Closed left hip fracture Status: Acute Qualifiers: Encounter type: initial encounter Qualified Code(s): S72.002A - Fracture of unspecified part of neck of left femur, initial encounter for closed fracture Category: Medical Code(s): S72.002A - Fracture of unspecified part of neck of left femur, initial encounter for closed fracture (2) Pulmonary emboli Status: Acute Qualifiers: Pulmonary embolism type: unspecified Chronicity: acute Acute cor pulmonale presence: without acute cor pulmonale Qualified Code(s): I26.99 - Other pulmonary embolism without acute cor pulmonale Category: Medical Code(s): I26.99 - Other pulmonary embolism without acute cor pulmonale (3) DVT (deep venous thrombosis) Status: Acute Qualifiers: DVT location: lower extremity Affected thrombotic vein of extremity: uns pecified vein of extremity Chronicity: acute Laterality: left Qualified Code(s): I82.402 - Acute embolism and thrombosis of unspecified deep veins of left lower extremity Category: Medical Code(s): I82.409 - Acute embolism and thrombosis of unspecified deep veins of unspecified lower extremity
[2020-03-06 10:24] LABS: Activated Partial Thrombo Time 82.6 seconds (23.6-34.0)
--- NOTE | 2020-03-06 14:42 | HMH.PHAHEP ---
[facility] Pharmacy Heparin Dosing - Demographic Data Admission date:: 03/04/20 Date: 03/06/20 Time: 14:43 Allergies/Adverse Reactions: Allergies Allergy/AdvReac Type Severity Reaction Status Date / Time No Known Allergies Allergy Verified 04/19/20 09:51 Height: 1.73 m Weight: 77 kg - Indication Medication therapy:: Heparin Current Indications:: PE Patient Problems: Current Active Problems Closed left hip fracture (Acute) Pulmonary emboli (Acute) DVT (deep venous thrombosis) (Acute) HTN (hypertension) (Acute) Schizophrenia (Acute) CVA?: No Bleeding problem?: No Kidney disease?: No NE?: No Desired PTT range:: 60-80 seconds - Labs Anticoagulation Lab Results:: 03/06/20 04:05 Hgb 12.3 L Hct 36.4 L Plt Count 106 L D - Monitoring Dose Monitor 1 Date: 03/05/20 Time: 20:40 PTT Result:: 35.3 Infusion Rate:: 1300 UNITS/HR = 26 ML/HR Comment:: BASELINE PTT 5000 UNIT BOLUS GIVEN DUN=075 ON 03/04/19 Dose Monitor 2 Date: 03/05/20 Time: 23:00 PTT Result:: 162.6 Infusion Rate:: STOP FOR 1 HR, THEN RESTART AT 1200 UNITS/HR Dose Monitor 3 Date: 03/06/20 Time: 04:00 PTT Result:: 94.3 Infusion Rate:: 11 UNITS/HR = 22 ML/HR Dose Monitor 4 Date: 03/06/20 Time: 09:30 PTT Result:: 82.6 Infusion Rate:: 1100 UNITS/HR = 22 ML/HR Dose Monitor 5 Date: 03/06/20 Time: 16:00 PTT Result:: 36.4 Infusion Rate:: 1250 UNITS/HR = 25 ML/HR Comment:: RE-BOLUS 5000 UNITS PATIENT HAD PULLED IV OUT AND WENT WITHOUT FOR ~30 MIN PER [facility] GAN Dose Monitor 6 Date: 03/06/20 Time: 22:00 PTT Result:: 129.5 Infusion Rate:: 1100 UNITS/HR = 22 ML/HR Dose Monitor 7 Date: 03/07/20 Time: 06:00 PTT Result:: 75.8 Infusion Rate:: 22 ML/HR Dose Monitor 8 Date: 03/07/20 Time: 13:00 PTT Result:: 52.4 Infusion Rate:: 1150 UNITS/HR = 23 ML/HR Dose Monitor 9 Date: 03/07/20 Time: 21:00 PTT Result:: 31.6 Infusion Rate:: 5000 UNIT BOLUS 1100 UNITS/HR = 22 ML/HR Comment:: PATIENT HAS PULLED IV OUT SEVERAL TIMES PER RN Dose Monitor 10 Date: 03/08/20 Time: 04:00 PTT Result:: 74.5 Infusion Rate:: 22 ML/HR Dose Monitor 11 Date: 03/08/20 Time: 09:30 PTT Result:: 77.3 Infusion Rate:: 22 ML/HR Comment:: [id number] Dose Monitor 12 Date: 03/08/20 Time: 17:00 PTT Result:: 55.8 Infusion Rate:: 23 ML/HR Dose Monitor 13 Date: 03/09/20 Time: 00:25 PTT Result:: 48.9 Infusion Rate:: 26 ML/HR Comment:: [id number] Dose Monitor 14 Date: 03/09/20 Time: 08:25 PTT Result:: 30.9 Infusion Rate:: HEPARIN DRIP STOPPED. PATIENT GOING TO OR. Comment:: CHANGED HEPARIN TO LOVENOX - Core Measures Is INR > or = 2 at discharge?: No Most Recent Labs:: Laboratory Results - last 24 hr 03/05/20 20:38: APTT 35.3 H 03/05/20 23:03: APTT 162.6 H* D 03/06/20 04:05: WBC 6.0, RBC 4.18 L, Hgb 12.3 L, Hct 36.4 L, MCV 87.2, MCH 29.5, MCHC 33.8, RDW 13.8, Plt Count 106 L D, MPV 8.9, Neut % (Auto) 61.8, Lymph % (Auto) 29.1, Armstrong % (Auto) 7.1, Eos % (Auto) 1.6, Baso % (Auto) 0.3, Neut # (Auto) 3.7, Lymph # (Auto) 1.7, Armstrong # (Auto) 0.4, Eos # (Auto) 0.1, Baso # (Auto) 0.0 03/06/20 04:05: Sodium 138, Potassium 3.7, Chloride 104, Carbon Dioxide 27, Anion Gap 10.7, BUN 25 H D, Creatinine 0.70, Estimated Creat Clear 76, Estimated GFR 112, Est GFR ( Amer) 136, Glucose 121 H, Calcium 8.7 03/06/20 04:05: APTT 94.3 H* D 03/06/20 09:44: APTT 82.6 H* D Were Heparin and Warfarin started on the same day?: No If not, why?: WARFARIN NOT INDICATED
[2020-03-06 16:00] VITALS: BP 144/87; PULSE 62; RESP 19; TEMP 36.7; O2SAT 94
[2020-03-06 16:51] LABS: Activated Partial Thrombo Time 36.4 seconds (23.6-34.0)
--- NOTE | 2020-03-06 17:56 | PC.NURSE ---
SPOKE WITH Marimar PACHECO PHARMACIST MEETING COORDINATOR REGARDING HEPARIN TITRATION LOADING DOSE OF 5000 UNITS ORDERED INCREASE RATE TO 25ML/HR.
--- NOTE | 2020-03-06 17:57 | PC.NURSE ---
HE IS AO TO PERSON AND KNOWS HIS NAME, WHEN ASKED HE STATES THAT HE IS AT [facility], HE IS ABLE TO MAKE MOST NEEDS KNOWN TO STAFF AND WILL USE CALL LIGHT WHEN HE NEEDS TO USE THE URINAL FOR ELIMINATION. HE HAS TOLERATED DIET WELL WITH NO C/O N/V/D, TOLERATING ROOM AIR, DIMINISHED T/O OM AUSCULTATION HE DENIES PAIN, HE IS ABLE TO MAKE CHANGES IN BODY POSITION INDEPENDENTLY IN THE BED, HE HAS NOT AMBULATED, NO BM NOTED, AT TIME HE ACTS IMPULSIVELY AND HAS PULLED OUT MULTIPLE IV'S THIS SHIFT. WHEN ASKED WHY HE PULLS OUT HIS IV'S THE PT STATE THAT IT WASN'T HIM, HE DENIES AUDITORY OR VISUAL HALLUCINATIONS, HE DENIES ANY SUICIDAL IDEATION. AT THIS TIME A BED ALARM IS IN PLACE, PT REMAINS SAFE, HEPARIN INFUSION WAS INCREASED ORDERED BY Marimar PACHECO IN PHARMACY, NEW IV IN PLACE TO LEFT AC INFUSING ORDERED. SAFETY MEASURE IN PLACE, WILL CONTINUE TO MONITOR
--- NOTE | 2020-03-06 19:30 | PC.NURSE ---
upon entering room,pump was beeping and pt was trying to take his gown off,said he was going home,he had been drinking whiskey,reorianted pt .he had pulled his iv out and blood noted on his gown and on his arm.wraped arm with gauze and coban.pt on a heparin drip,told pt that he did not need to pull iv out related to bleeding,but pt confused.urinal was on floor and some uriine noted all over floor,this was cleaned up and 100ml of dark urine emptied from urinal.will inform his nurse
--- NOTE | 2020-03-06 19:44 | PC.NURSE ---
PT HAS PULLED IV OUT AT THIS TIME STATES THAT HE IS GOING HOME AND THAT HE HAS BEEN DRINKING WHISKEY. EMMETT Ott RN AT BEDSIDE REORIENTATING PT AND STARTING A NEW IV.
[2020-03-06 20:00] VITALS: BP 134/72; PULSE 88; RESP 18; TEMP 37.3; O2SAT 93
--- NOTE | 2020-03-06 20:00 | PC.NURSE ---
after starting a new iv in the right forarm,iv fluids and heparin drip was started again.pt was trying to get out of bed.set bed alarm told pt that he needed to ring for nurse if he needed something so he would not fall again,pt said ok,will let his nurse know
--- NOTE | 2020-03-06 20:35 | PC.NURSE ---
PT ASSESSED AT THIS TIME. PT IS ALERT AND ORIENTATED TO SELF; INCLUDING NAME AND . PT IS CONFUSED AT TIMES AND HAS ALREADY PULLED OUT IV ONCE THIS SHIFT. PT DENIES PAIN WHEN ASKED. PAIN NOTED WITH MOVEMENT OF L HIP. NO EDEMA NOTED AND BILATERAL LUNG SOUNDS CLEAR. DENIES ANY NEEDS. WILL CONTINUE TO OBSERVE.
--- NOTE | 2020-03-06 20:41 | PC.NURSE ---
PT GIVEN TYLENOL AT THIS TIME FOR ORAL TEMP OF 99.2 F WILL CONTINUE TO OBSERVE.
[2020-03-06 22:14] LABS: Activated Partial Thrombo Time 129.5 seconds (23.6-34.0)
--- NOTE | 2020-03-06 22:15 | PC.NURSE ---
PHARMACY CALLED AT THIS TIME. ACCORDING TO PT PTT RN INSTRUCTED TO TITRATE HEPARIN GTT TO 22 ML/HR. ODER REPEATED AND VERIFIED. WILL FAX TO [facility]
[2020-03-07] VITALS (8 sets, daily range): BP systolic 126–161; BP diastolic 74–90; PULSE 71–92; RESP 16–19; TEMP 36.8–37.8; O2SAT 92–99; BMI 25.9
--- NOTE | 2020-03-07 06:03 | PC.NURSE ---
PT GETTING BED BATH AT THIS TIME. PT HAS BEEN ALERT TO SELF THIS SHIFT. REALLY CONFUSED AT TIMES. PULLED ONE IV OUT DURING THIS SHIFT. PT HAS HAD A LOW GRADE TEMP TWO DIFFERENT OCCASSIONS DURING THIS SHIFT SHIFT AND BOTH WERE TREATED WITH TYLENOL 650 MG AND IMPROVEMENT WAS NOTED.
[2020-03-07 06:06] LABS: Basophils % 0.4 % (0.1-2.0); Eosinophils # 0.1 K/mm3 (0.0-0.4); Eosinophils % 1.8 % (0.1-12.0); Hematocrit 33.2 % (42.0-52.0); Hemoglobin 11.2 g/dL (14.1-18.0); Lymphocytes # 1.6 K/mm3 (0.7-4.5); Lymphocytes % 25.5 % (10-50); Mean Corpuscular HGB Conc 33.6 g/dL (31.8-35.4); Mean Corpuscular Hemoglobin 29.6 pg (27.0-31.2); Mean Corpuscular Volume 87.8 fl (80-94); Mean Platelet Volume 8.8 fl (7.4-10.4); Monocytes # 0.4 K/mm3 (0.1-1.0); Monocytes % 6.4 % (1.7-9.3); Neutrophils # 4.2 K/mm3 (1.8-7.8); Platelet Count 118 K/mm3 (142-424); Red Blood Count 3.78 M/mm3 (4.60-6.20); Red Cell Distribution Width 13.8 % (11.5-17.5); White Blood Count 6.4 K/mm3 (4.8-10.8)
[2020-03-07 06:16] LABS: Chloride 105 mmol/L (98-107); Potassium 3.3 mmoL/L (3.5-5.1); Sodium 138 mmol/L (136-145)
[2020-03-07 06:19] LABS: Anion Gap 8.3 mEq/L (5-15); Blood Urea Nitrogen 20 mg/dl (9-20); Carbon Dioxide 28 mmol/L (22.0-30.0); Creatinine Clearance Estimated 78 mL/min (50-200); Estimated Glomerular Filt Rate 134 ml/min (>60); GFR (African American) 162 ML/MIN (>60)
[2020-03-07 06:20] LABS: Calcium 8.5 mg/dl (8.4-10.2); Glucose 111 mg/dl (74-100)
--- NOTE | 2020-03-07 07:13 | PC.NURSE ---
PHARMACY CALLED AT THIS TIME STATING THAT HEPARIN GTT CAN STAY AT 22 ML/HR.
[2020-03-07 07:18] LABS: Activated Partial Thrombo Time 75.8 seconds (23.6-34.0)
--- NOTE | 2020-03-07 07:33 | PC.NURSE ---
REPORT GIVEN TO Chiki DOMINGUEZ RN
--- NOTE | 2020-03-07 10:26 | HMH.ACPN2 ---
Internal Medicine - PN: Subj *Date: 03/07/20 *Time: 10:26 Interval history: doing ok - discussed with phar about heparin and reviewed labs and vs and meds - Exam Vital signs and Labs for Last 24 Hours: Temp Pulse Resp BP Pulse Ox 98.3 F 71 18 138/79 99 03/07/20 08:00 03/07/20 08:00 03/07/20 08:00 03/07/20 08:00 03/07/20 08:00 Laboratory Results - last 24 hr 03/06/20 16:03: APTT 36.4 H D 03/06/20 21:47: APTT 129.5 H* D 03/07/20 05:30: WBC 6.4, RBC 3.78 L, Hgb 11.2 L, Hct 33.2 L, MCV 87.8, MCH 29.6, MCHC 33.6, RDW 13.8, Plt Count 118 L, MPV 8.8, Neut % (Auto) 66.0, Lymph % (Auto) 25.5, Oldham % (Auto) 6.4, Eos % (Auto) 1.8, Baso % (Auto) 0.4, Neut # (Auto) 4.2, Lymph # (Auto) 1.6, Oldham # (Auto) 0.4, Eos # (Auto) 0.1, Baso # (Auto) 0.0 03/07/20 05:30: Sodium 138, Potassium 3.3 L, Chloride 105, Carbon Dioxide 28, Anion Gap 8.3, BUN 20, Creatinine 0.60 L, Estimated Creat Clear 78, Estimated GFR 134, Est GFR ( Amer) 162, Glucose 111 H, Calcium 8.5 03/07/20 05:30: APTT 75.8 H* D I & O for Last 24 hours: Intake & Output 03/04/20 03/05/20 03/06/20 03/07/20 11:59 11:59 11:59 11:59 Intake Total 480 / 480 2540 / 2540 Output Total 500 / 500 925 / 925 Balance -20 / -20 1615 / 1615 Weight 167 lb 3.212 oz 170 lb 4.8 oz 171 lb 9 oz - Constitutional no acute distress - *Routine HEENT Exam Head: Present: normocephalic Eye: Present: EOMI, PERRL ENT: Present: mucous membranes moist - *Routine Neck Exam Absent: JVD - *Routine Respiratory Exam Present: CTA bilaterally - *Routine Cardiovascular Exam Present: RRR - *Routine Abdominal Exam Present: soft - *Routine Extremities Exam Absent: calf tenderness - *Routine Skin Exam Present: intact - *Routine Neurological Exam Present: alert, CN II-XII intact - Routine Psychiatric Exam Present: cooperative. Absent: good insight Assessment and Plan (1) Closed left hip fracture Status: Acute Qualifiers: Encounter type: initial encounter Qualified Code(s): S72.002A - Fracture of unspecified part of neck of left femur, initial encounter for closed fracture Category: Medical Code(s): S72.002A - Fracture of unspecified part of neck of left femur, initial encounter for closed fracture (2) Pulmonary emboli Status: Acute Qualifiers: Pulmonary embolism type: unspecified Chronicity: acute Acute cor pulmonale presence: without acute cor pulmonale Qualified Code(s): I26.99 - Other pulmonary embolism without acute cor pulmonale Category: Medical Code(s): I26.99 - Other pulmonary embolism without acute cor pulmonale (3) DVT (deep venous thrombosis) Status: Acute Qualifiers: DVT location: lower extremity Affected thrombotic vein of extremity: unspecified vein of extremity Chronicity: acute Laterality: left Qualified Code(s): I82.402 - Acute embolism and thrombosis of unspecified deep veins of left lower extremity Category: Medical Code(s): I82.409 - Acute embolism and thrombosis of unspecified deep veins of unspecified lower extremity (4) HTN (hypertension) Status: Acute Qualifiers: Hypertension type: essential hypertension Qualified Code(s): I10 - Essential (primary) hypertension Category: Medical Code(s): I10 - Essential (primary) hypertension (5) Schizophrenia Status: Acute Qualifiers: Schizophrenia type: unspecified Qualified Code(s): F20.9 - Schizophrenia, unspecified Category: Medical Code(s): F20.9 - Schizophrenia, unspecified
--- NOTE | 2020-03-07 13:58 | HMH.ORTHPN ---
Subjective Date: 03/07/20 Time: 12:00 Principal diagnosis: L hip fracture Interval history: The patient is doing well this afternoon and reports persistent pain in the left hip that is controlled with pain medication. He is on a heparin drip for pulmonary emboli and surgery has been postponed while this is treated. Denies any current chest pain or shortness of breath. PN: Obj Ex Vital signs: Temp Pulse Resp BP Pulse Ox 98.4 F 83 16 161/90 H 97 03/07/20 11:53 03/07/20 11:53 03/07/20 11:53 03/07/20 11:53 03/07/20 11:53 - Constitutional no acute distress - Routine HEENT Exam Head: Present: normocephalic Eye: Present: EOMI ENT: Present: mucous membranes moist - Routine Neck Exam Present: trachea midline - Routine Respiratory Exam Absent: respiratory distress, wheezes - Routine Cardiovascular Exam Present: RRR - Routine Abdominal Exam Present: soft - Routine Extremities Exam Comments: LLE slightly shortened, no IR/ER abnormality; no gross deformity L hip no open wounds L hip, no ecchymosis/erythema +DF/PF/EHL LLE SILT distally LLE in all distributions L calf soft, non-tender; negative Homans palpable pedal pulses LLE, foot pink/warm moderate tenderness to palpation L hip - Routine Skin Exam Present: intact, warm - Routine Neurological Exam Present: alert, moving all extremities, vision grossly intact, hearing grossly intact. Absent: sensory deficit, motor deficit Progress Note: A&P (1) Closed left hip fracture Status: Acute (2) Pulmonary emboli Status: Acute (3) DVT (deep venous thrombosis) Status: Acute (4) HTN (hypertension) Status: Acute (5) Schizophrenia Status: Acute Assessment and Plan for All Diagnoses:: 69yo M with L intertrochanteric femur fracture; pulmonary emboli discovered on admission. DOI 03/03/20. -- continue medical management per PCP, management of PE by cardiology/pulmonology -- recommend surgical fixation of the fracture as soon as it is medically safe to proceed -- will plan for OR Sunday03/09/20 if possible; plan: IMN L femur
[2020-03-07 14:46] LABS: Activated Partial Thrombo Time 52.4 seconds (23.6-34.0)
--- NOTE | 2020-03-07 15:01 | PC.NURSE ---
heparin drip titrated to 1150 units per hour/ 23 ml/hr per genoveva comer in pharm.
--- NOTE | 2020-03-07 15:47 | PC.NURSE ---
HE IS AO TO HIS NAME ONLY, AND HAS BEEN CONFUSED T.O SHIFT, HE ATTEMPTS TO GET OUT OF BED UNASSISTED, HE IS NOT ABLE TO TOLERATE WEIGHT DUE TO A FRACTURE OF THE LEFT HIP AND PT HAS BEEN REMINDED OF LIMITATINOS MULTIPLE TIMES THIS SHIFT. HE CAN TELL YOU WHEN HE NEEDS TO USE THE RESTROOM AND WHEN HE WANTS TO BE REPOSITIONED IN BED, HE TOLERATES PO INTAKE WELL AND FEEDS SELF INDEPENDENTLY, HE HAS NO PROBLEMS TAKING MEDS. HIS VITAL SIGNS HAVE BEEN STABLE T/O SHIFT AND HE HAS BEEN MEDICATED PER APR WITH PRN MORPHINE FOR PAIN, HEPARIN DRIP INFISING ORDERED AND HAS BEEN TITRATED X1 THIS SHIFT, CURRENT RATE IS 23 ML/HR 1150 UNITS/HR, NO NEEDS A THIS TIME, BED ALARM IN PLACE, PT REMAINS SAFE.
[2020-03-07 21:44] LABS: Activated Partial Thrombo Time 31.6 seconds (23.6-34.0)
[2020-03-08 04:29] LABS: Chloride 104 mmol/L (98-107); Potassium 3.2 mmoL/L (3.5-5.1); Sodium 135 mmol/L (136-145)
[2020-03-08 04:32] LABS: Anion Gap 6.2 mEq/L (5-15); Blood Urea Nitrogen 17 mg/dl (9-20); Calcium 8.5 mg/dl (8.4-10.2); Carbon Dioxide 28 mmol/L (22.0-30.0); Creatinine Clearance Estimated 78 mL/min (50-200); Estimated Glomerular Filt Rate 165 ml/min (>60); GFR (African American) 200 ML/MIN (>60); Glucose 104 mg/dl (74-100)
[2020-03-08 04:46] LABS: Activated Partial Thrombo Time 74.5 seconds (23.6-34.0)
[2020-03-08 04:48] LABS: Basophils % 0.3 % (0.1-2.0); Eosinophils # 0.2 K/mm3 (0.0-0.4); Eosinophils % 3.8 % (0.1-12.0); Hematocrit 32.6 % (42.0-52.0); Lymphocytes # 1.6 K/mm3 (0.7-4.5); Lymphocytes % 28.6 % (10-50); Mean Corpuscular HGB Conc 33.9 g/dL (31.8-35.4); Mean Corpuscular Hemoglobin 29.7 pg (27.0-31.2); Mean Corpuscular Volume 87.4 fl (80-94); Mean Platelet Volume 9.3 fl (7.4-10.4); Monocytes # 0.3 K/mm3 (0.1-1.0); Monocytes % 5.9 % (1.7-9.3); Neutrophils # 3.4 K/mm3 (1.8-7.8); Neutrophils % 61.4 % (37.0-80.0); Platelet Count 141 K/mm3 (142-424); Red Blood Count 3.72 M/mm3 (4.60-6.20); White Blood Count 5.5 K/mm3 (4.8-10.8)
[2020-03-08 05:00] VITALS: BMI 26.4
[2020-03-08 08:00] VITALS: BP 114/74; PULSE 88; RESP 16; TEMP 36.2; O2SAT 94
--- NOTE | 2020-03-08 08:31 | PC.NURSE ---
Pt is a&o to person. Pt has c/o pain to left hip and medicated per MAR. Bruising noted to left hip and thigh. Pt has been incontinent of bladder and is in an attends. New peripheral IV placed to LFA, 18G. PTT was subtherapeutic d/t pt pulling IV out at beginning of the shift. New orders per pharmacy to give Heparin bolus of 5,000 units IVP and then change rate to 22ml/hr. No changes after new PTT draw at 0415. Bed alarm active, clip alarm in place to shoulder, and pt turned q2prn. DSG placed to coccxy/buttox d/t mild redness and small shear noted. Call liht within reach.
--- NOTE | 2020-03-08 09:11 | HMH.PULMPN ---
Internal Medicine - PN: Subj *Date: 03/08/20 *Time: 15:22 Interval history: No acute respiratory ones overnight. Patient continued to be on room air. Exam - Constitutional Constitutional:: Present: no acute distress, healthy appearing - HENMT Exam HENMT: Present: normocephalic, moist mucous membranes - Eye Exam Eyes:: Present: eyelids normal - Neck Exam Neck:: Present: thyroid normal, no lymphadenopathy - Respiratory Exam Respiratory:: Present: able to speak in complete sentences, lungs clear, normal breath sounds, no respiratory distress, normal respiratory effort - Cardiovascular Exam Cardiac:: Present: S1, S2 - GI Exam GI:: Present: soft - Skin Exam Skin: Present: warm, no rash, dry - Neurological Exam Neurological: Present: alert, awake - Extremities Exam Extremities: Present: no cyanosis, no clubbing, no edema Assessment and Plan (1) Closed left hip fracture Status: Acute Qualifiers: Encounter type: initial encounter Qualified Code(s): S72.002A - Fracture of unspecified part of neck of left femur, initial encounter for closed fracture Category: Medical Code(s): S72.002A - Fracture of unspecified part of neck of left femur, initial encounter for closed fracture (2) Pulmonary emboli Status: Acute Qualifiers: Pulmonary embolism type: unspecified Chronicity: acute Acute cor pulmonale presence: without acute cor pulmonale Qualified Code(s): I26.99 - Other pulmonary embolism without acute cor pulmonale Category: Medical Code(s): I26.99 - Other pulmonary embolism without acute cor pulmonale (3) DVT (deep venous thrombosis) Status: Acute Qualifiers: DVT location: lower extremity Affected thrombotic vein of extremity: unspecified vein of extremity Chronicity: acute Laterality: left Qualified Code(s): I82.402 - Acute embolism and thrombosis of unspecified deep veins of left lower extremity Category: Medical Code(s): I82.409 - Acute embolism and thrombosis of unspecified deep veins of unspecified lower extremity (4) HTN (hypertension) Status: Acute Qualifiers: Hypertension type: essential hypertension Qualified Code(s): I10 - Essential (primary) hypertension Category: Medical Code(s): I10 - Essential (primary) hypertension (5) Schizophrenia Status: Acute Qualifiers: Schizophrenia type: unspecified Qualified Code(s): F20.9 - Schizophrenia, unspecified Category: Medical Code(s): F20.9 - Schizophrenia, unspecified - Assessment and plan all Dx Assessment and Plan for all problems:: #Pulmonary embolism : CT chest CTA did not show any obvious airspace disease showed right-sided pulmonary embolism in the right upper middle and lower lobe pulmonary arterial branches. Lower extremity Doppler also showed DVT in her left lower extremity. Patient does not appear to be in any respiratory distress. Troponins within normal limits on admission. Patient also found to have minimally displaced intertrochanteric fracture of the left hip. Patient respiratory status has been relatively stable since admission remained on room air. Hemodynamically stable. Continued to receive heparin for the last 72 hours. Echocardiogram did not commented on any right heart strain. Troponins negative on admission. Plan: -Continue heparin drip during the perioperative. -Patient will be intermediate to high risk for surgery given his recent PE. Please discussed the risk benefits with the patient before proceeding with the surgery. -Follow with orthopedics and anesthesiology recommendations. #Thank you for involving pulmonary in this patient care. We will continue to follow.
--- NOTE | 2020-03-08 09:33 | PC.WOUNDNOTE ---
Wound Location: coccyx, buttock blister with possible shear, slight redness, DSG applied
--- NOTE | 2020-03-08 10:20 | HMH.ACPN2 ---
Internal Medicine - PN: Subj *Date: 03/08/20 *Time: 10:20 Interval history: pt sitting up in bed eating breakfast. Exam Vital signs and Labs for Last 24 Hours: Temp Pulse Resp BP Pulse Ox 99.2 F 92 H 16 130/80 94 L 03/07/20 23:05 03/07/20 23:05 03/07/20 23:05 03/07/20 23:05 03/07/20 23:05 Laboratory Results - last 24 hr 03/07/20 13:41: APTT 52.4 H* D 03/07/20 20:50: APTT 31.6 03/08/20 04:15: WBC 5.5, RBC 3.72 L, Hgb 11.0 L, Hct 32.6 L, MCV 87.4, MCH 29.7, MCHC 33.9, RDW 14.0, Plt Count 141 L, MPV 9.3, Neut % (Auto) 61.4, Lymph % (Auto) 28.6, [place] % (Auto) 5.9, Eos % (Auto) 3.8, Baso % (Auto) 0.3, Neut # (Auto) 3.4, Lymph # (Auto) 1.6, [place] # (Auto) 0.3, Eos # (Auto) 0.2, Baso # (Auto) 0.0 03/08/20 04:15: Sodium 135 L, Potassium 3.2 L, Chloride 104, Carbon Dioxide 28, Anion Gap 6.2, BUN 17, Creatinine 0.50 L, Estimated Creat Clear 78, Estimated GFR 165, Est GFR ( Amer) 200 D, Glucose 104 H, Calcium 8.5 03/08/20 04:15: APTT 74.5 H* D I & O for Last 24 hours: Intake & Output 03/05/20 03/06/20 03/07/20 03/08/20 11:59 11:59 11:59 11:59 Intake Total 480 / 480 2540 / 2540 480 / 480 Output Total 500 / 500 925 / 925 250 / 250 Balance - / 1615 / 1615 230 / 230 Weight 167 lb 3.212 oz 170 lb 4.8 oz 171 lb 9 oz 174 lb 0.012 oz - Constitutional no acute distress - *Routine HEENT Exam Head: Present: normocephalic Eye: Present: PERRL ENT: Present: mucous membranes moist - *Routine Neck Exam Present: supple. Absent: lymphadenopathy - *Routine Respiratory Exam Present: CTA bilaterally - *Routine Cardiovascular Exam Present: RRR - *Routine Abdominal Exam Present: soft, normoactive bowel sounds. Absent: tenderness - *Routine Extremities Exam Present: normal capillary refill. Absent: cyanosis, clubbing, edema - *Routine Skin Exam Present: warm. Absent: rash - *Routine Neurological Exam Present: alert - Routine Psychiatric Exam Present: normal affect Assessment and Plan (1) Closed left hip fracture Status: Acute Qualifiers: Encounter type: initial encounter Qualified Code(s): S72.002A - Fracture of unspecified part of neck of left femur, initial encounter for closed fracture Category: Medical Code(s): S72.002A - Fracture of unspecified part of neck of left femur, initial encounter for closed fracture (2) Pulmonary emboli Status: Acute Qualifiers: Pulmonary embolism type: unspecified Chronicity: acute Acute cor pulmonale presence: without acute cor pulmonale Qualified Code(s): I26.99 - Other pulmonary embolism without acute cor pulmonale Category: Medical Code(s): I26.99 - Other pulmonary embolism without acute cor pulmonale (3) DVT (deep venous thrombosis) Status: Acute Qualifiers: DVT location: lower extremity Affected thrombotic vein of extremity: unspecified vein of extremity Chronicity: acute Laterality: left Qualified Code(s): I82.402 - Acute embolism and thrombosis of unspecified deep veins of left lower extremity Category: Medical Code(s): I82.409 - Acute embolism and thrombosis of unspecified deep veins of unspecified lower extremity (4) HTN (hypertension) Status: Acute Qualifiers: Hypertension type: essential hypertension Qualified Code(s): I10 - Essential (primary) hypertension Category: Medical Code(s): I10 - Essential (primary) hypertension (5) Schizophrenia Status: Acute Qualifiers: Schizophrenia type: unspecified Qualified Code(s): F20.9 - Schizophrenia, unspecified Category: Medical Code(s): F20.9 - Schizophrenia, unspecified - Assessment and plan all Dx Assessment and Plan for all problems:: rounded with dr hanson all orders per dr hanson pulm and cardiology plan to have hip surgery tomorrow-if ok with cardiology and pulm
--- NOTE | 2020-03-08 10:31 | P.PN_ITS ---
Subjective Date: 03/08/20 Time: 08:00 Principal diagnosis: L hip fracture Interval history: No acute events reported overnight. Patient remains on heparin drip. No chest pain or shortness of breath reported. Pain persists in L hip. Has known PE and LLE DVT, chronicity unknown. PN: Obj Ex Vital signs: Temp Pulse Resp BP Pulse Ox 99.2 F 92 H 16 130/80 94 L 03/07/20 23:05 03/07/20 23:05 03/07/20 23:05 03/07/20 23:05 03/07/20 23:05 - Constitutional no acute distress - Routine HEENT Exam Head: Present: normocephalic Eye: Present: EOMI ENT: Present: mucous membranes moist - Routine Neck Exam Present: trachea midline - Routine Respiratory Exam Absent: respiratory distress, wheezes - Routine Cardiovascular Exam Present: RRR - Routine Abdominal Exam Present: soft. Absent: tenderness - Routine Extremities Exam Comments: LLE slightly shortened, no IR/ER abnormality; no gross deformity L hip no open wounds L hip, no ecchymosis/erythema +DF/PF/EHL LLE SILT distally LLE in all distributions L calf soft, non-tender; negative Homans palpable pedal pulses LLE, foot pink/warm moderate tenderness to palpation L hip - Routine Skin Exam Present: warm - Routine Neurological Exam Present: alert, oriented X3, moving all extremities, vision grossly intact, hearing grossly intact, normal speech. Absent: sensory deficit, motor deficit Progress Note: A&P (1) Closed left hip fracture Status: Acute (2) Pulmonary emboli Status: Acute (3) DVT (deep venous thrombosis) Status: Acute (4) HTN (hypertension) Status: Acute (5) Schizophrenia Status: Acute Assessment and Plan for All Diagnoses:: 69yo M with L intertrochanteric femur fracture; pulmonary emboli + DVT discovered on admission. DOI 03/03/20. -- continue medical management per PCP, management of PE/DVT by cardiology/pulmonology -- will need heparin drip stopped prior to surgery; this was discussed with Dr. Willis. Drip may be continued up to 1-2 hours prior to surgery; will defer management of this to Dr. Willis. 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
[2020-03-08 10:54] LABS: Activated Partial Thrombo Time 77.3 seconds (23.6-34.0)
[2020-03-08 12:00] VITALS: BP 125/84; PULSE 79; RESP 16; TEMP 36.7; O2SAT 95
[2020-03-08 16:00] VITALS: BP 118/74; PULSE 81; RESP 16; TEMP 37.2; O2SAT 93
[2020-03-08 17:41] LABS: Activated Partial Thrombo Time 55.8 seconds (23.6-34.0)
--- NOTE | 2020-03-08 18:00 | PC.NURSE ---
Pt has been pleasant and cooperative this shift. Alert to person only. No complaints of pain. Pt is on room air with sats. >90%. Lungs CTA. No edema noted. Excoriation noted to bilateral buttocks. Allevyn dressing in place. Pt has been turned/repositioned Q2H this shift. Pt uses the urinal to void clear, yellow urine without issue. No BM this shift. Appetite is good and pt eats the majority of all meals. NS is infusing @ 50 ML/HR. Heparin is infusing @ 23 ML/HR with rate managed per Pharmacy and instructions per Dr. Willis to STOP Heparin @ 0400 in preparation for surgery tomorrow. VSS. Call light within reach.
[2020-03-08 20:00] VITALS: BP 132/80; PULSE 92; RESP 18; TEMP 38; O2SAT 93
[2020-03-09] VITALS (20 sets, daily range): BP systolic 99–156; BP diastolic 50–87; PULSE 57–106; RESP 14–21; TEMP 36.4–43; O2SAT 94–99; BMI 26.0
[2020-03-09 00:53] LABS: Activated Partial Thrombo Time 48.9 seconds (23.6-34.0)
--- NOTE | 2020-03-09 03:31 | PC.NURSE ---
Addendum entered by Modesta Shaw RN 03/09/20 04:01: Heparin gtt stopped at this time in preparation for surgery scheduled. Original Note: Pt is oriented to self and birthday only. Lung sounds CTA. No cough noted. Pt still tolerating RA appropriately. Surgery consent signed per Mackenzie Willams RN. Pre-op checklist completed w/ bag of LR hanging for surgery in room. Pt's Heparin gtt was increased to 26 ml/hr per D merary Gold along w/ a 3,000 unit bolus of heparin this shift. Pt is urinating cloudy, dark yellow urine per urinal. Pt has had no c/o hip pain this shift. No other acute changes or complaints at this time.
[2020-03-09 06:43] LABS: Basophils % 0.3 % (0.1-2.0); Eosinophils # 0.2 K/mm3 (0.0-0.4); Eosinophils % 4.4 % (0.1-12.0); Hematocrit 31.1 % (42.0-52.0); Hemoglobin 10.8 g/dL (14.1-18.0); Lymphocytes # 1.5 K/mm3 (0.7-4.5); Lymphocytes % 26.8 % (10-50); Mean Corpuscular HGB Conc 34.7 g/dL (31.8-35.4); Mean Corpuscular Hemoglobin 30.1 pg (27.0-31.2); Mean Corpuscular Volume 86.7 fl (80-94); Mean Platelet Volume 8.1 fl (7.4-10.4); Monocytes # 0.4 K/mm3 (0.1-1.0); Monocytes % 6.9 % (1.7-9.3); Neutrophils # 3.4 K/mm3 (1.8-7.8); Neutrophils % 61.7 % (37.0-80.0); Platelet Count 165 K/mm3 (142-424); Red Blood Count 3.58 M/mm3 (4.60-6.20); White Blood Count 5.5 K/mm3 (4.8-10.8)
[2020-03-09 06:46] LABS: Chloride 105 mmol/L (98-107); Potassium 3.3 mmoL/L (3.5-5.1); Sodium 137 mmol/L (136-145)
[2020-03-09 06:49] LABS: Anion Gap 8.3 mEq/L (5-15); Blood Urea Nitrogen 16 mg/dl (9-20); Calcium 8.5 mg/dl (8.4-10.2); Carbon Dioxide 27 mmol/L (22.0-30.0); Creatinine Clearance Estimated 78 mL/min (50-200); Estimated Glomerular Filt Rate 134 ml/min (>60); GFR (African American) 162 ML/MIN (>60); Glucose 103 mg/dl (74-100)
--- NOTE | 2020-03-09 08:40 | HMH.PULMPN ---
Internal Medicine - PN: Subj *Date: 03/09/20 *Time: 12:29 Exam Narrative: Patient today refused to be physically examined. Appeared comfortable lying in bed on room air. Unwilling to engage in conversation. Assessment and Plan (1) Closed left hip fracture Status: Acute Qualifiers: Encounter type: initial encounter Qualified Code(s): S72.002A - Fracture of unspecified part of neck of left femur, initial encounter for closed fracture Category: Medical Code(s): S72.002A - Fracture of unspecified part of neck of left femur, initial encounter for closed fracture (2) Pulmonary emboli Status: Acute Qualifiers: Pulmonary embolism type: unspecified Chronicity: acute Acute cor pulmonale presence: without acute cor pulmonale Qualified Code(s): I26.99 - Other pulmonary embolism without acute cor pulmonale Category: Medical Code(s): I26.99 - Other pulmonary embolism without acute cor pulmonale (3) DVT (deep venous thrombosis) Status: Acute Qualifiers: DVT location: lower extremity Affected thrombotic vein of extremity: unspecified vein of extremity Chronicity: acute Laterality: left Qualified Code(s): I82.402 - Acute embolism and thrombosis of unspecified deep veins of left lower extremity Category: Medical Code(s): I82.409 - Acute embolism and thrombosis of unspecified deep veins of unspecified lower extremity (4) HTN (hypertension) Status: Acute Qualifiers: Hypertension type: essential hypertension Qualified Code(s): I10 - Essential (primary) hypertension Category: Medical Code(s): I10 - Essential (primary) hypertension (5) Schizophrenia Status: Acute Qualifiers: Schizophrenia type: unspecified Qualified Code(s): F20.9 - Schizophrenia, unspecified Category: Medical Code(s): F20.9 - Schizophrenia, unspecified - Assessment and plan all Dx Assessment and Plan for all problems:: #Pulmonary embolism : 69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 Patient has been clinically stable since admission. Echo done commented on elevated right heart strain. Troponins within normal on admission. Patient has been relatively stable for the last 72 hours and was eventually scheduled for over today for his hip fracture. Patient hemoglobin continued to decline since admission his aPTT levels were supratherapeutic, close monitoring hemoglobin levels and pharmacy dose his heparin dose. Patient today appeared comfortable on room air. Refused physical examination. We will continue the heparin during the perioperative. #Thank you for involving pulmonary in this patient care. We will continue to follow.
[2020-03-09 08:58] LABS: Activated Partial Thrombo Time 30.9 seconds (23.6-34.0)
--- NOTE | 2020-03-09 10:02 | PC.NURSE ---
Pt to surgery at 1000
--- NOTE | 2020-03-09 12:34 | XR_ITS ---
PROCEDURE: XR HIP LT 2-3V W/PELVIS CLINICAL INDICATION: s/p IM nailing left femur Follow-up ORIF COMPARISON: CR XR HIP LT 2-3V W/PELVIS from 03/04/2020 FINDINGS: Status post decompression screw placement x2 with short intramedullary eduard stabilizing the intertrochanteric fracture of the left femur which is in good alignment. Skin clips are present along the lateral aspect of the proximal hip as well as soft tissue gas. IMPRESSION: Status post ORIF left hip with good alignment Dictated by: Tino Vergara MD 03/09/2020 13:58 Tino Vergara MD in OV 03/09/2020 13:58
--- NOTE | 2020-03-09 12:52 | HMH.ANESCL ---
[facility] Anesthesia Checklist - Patient Identification Patient Identification: Arm Band - Structural Data Admitted From: Inpatient Planned Operative Procedure/s: Left Femur Intratrochenteric Nailing Consent for Planned Operative Procedure(s) Verified: Yes Verified Documents: Surgical Consent, History and Physical - NPO Status Verified Time NPO: 00:00 - Additional verifications Anesthesia Reactions: No - Airway Assessment C-Spine Mobility Assessed: Yes (mp2) TMJ Mobility Assessed: Yes Dentition: Edentulous - Neurological Assessment Level of Consciousness: Awake, Alert (Inappropriate at times, but was oriented to person, place, and procedure being performed) - Anesthesia Plan Anesthesia Risk discussed: Yes Anesthesia Plan: Verified ASA Class: III Anesthesia Type: MAC w/Spinal (Risks/benefits of spinal/mac explained. Pt verbalizes understanding) [facility] History I have reviewed the patient's past medical history: Yes Medical History: Reports:: Hypertension, Pulmonary Embolism *Have you ever received a pneumonia vaccine?: No *Have you received a flu vaccine this season?: Yes Anesthesia experience/problems:: nac Other Surgeries: Yes: Other - *Social History Smoking Status: Unknown if ever smoked Alcohol Intake: never Substance Use Type: denies use *Occupational Status:: disabled Housing: [facility] *Travel in the last 8 weeks: None Family Hx:: Unable to obtain
--- NOTE | 2020-03-09 12:55 | HMH.ANESI ---
[facility] Anesthesia Record Part I Intake, IV Amount: 1,300 Estimated blood loss (mL): 150 Urine output (mL): 700 Blood Pressure: 99/63 SaO2: 94 Pulse Rate: 69 Respiratory Rate: 16 Temperature: 97.5 F Patient is:: Drowsy, Stable Stable to PACU at:: 12:50
--- NOTE | 2020-03-09 12:59 | HMH.OPNOTE ---
Date of procedure: 03/09/20 Pre-op Diagnosis:: intertrochanteric fracture L femur Post-op Diagnosis:: intertrochanteric fracture L femur Procedure performed:: intramedullary nail L femur Surgeon:: Erendira Candelaria MD Teacher Vocational Training(s):: ALEXIA Dubon BOOK CANVASSER:: Wiley Dory Anesthesia: MAC, spinal Estimated blood loss (mL): 150 Clinical Note:: 69-year-old gentleman admitted 03/04/20 through the ER after a fall at home earlier that evening. He is a resident of [facility] and fell while getting ready for bed, landing on his left side. Subsequent x-rays revealed an intertrochanteric femur fracture. He reported pain in the hip that radiated down to the knee. No loss of consciousness during the fall, no injury reported to the head, neck, chest, abdomen or back. Further investigation in the ER discovered that he has right-sided pulmonary emboli and LLE DVT. It is unknown when these appeared but there is suspicion they may be acute. He was started on a heparin drip and cardiology recommended delaying surgery at least 72 hours to allow the thrombi to consolidate. There were no issues while he was on the drip, which was stopped this morning at 4am. I discussed the nature of the patient's injury with him, along with the risks/benefits of both operative and nonoperative treatments. I discussed the risks of malunion, nonunion, lower extremity malrotation and persistent pain/limp, decubitus ulcers, DVT/PE, pneumonia, and other medical complications of prolonged immobilization that would be at risk with nonoperative treatment. I also discussed the risks of surgical treatment, including but not limited to: bleeding, infection, neurovascular damage, fracture propagation changing the surgical plan, hardware failure, nonunion, malunion, persistent pain/limp and/or disability despite surgical intervention, need for later revision surgery or hardware removal, and the risks of anesthesia including heart attack, stroke and even . The patient vocalized understanding of the above risks and informed consent was obtained. Operative findings:: [employer]tan antegrade femoral IMN Nail = 11.5 x 200mm, 125 degree Compression/Lag screws = 95 / 90mm Distal interlocking screw (1) = 5.0 x 32.5mm Operative note:: The patient was identified in preoperative holding and the L hip signed by myself. Consent was reviewed with the patient and all questions answered. He was seen by BOOK CANVASSER and the decision made to perform spinal anesthesia. The patient was then taken to the operating room where 2 grams cefazolin was administered intravenously and spinal anesthsia administered. The patient was then transferred to the fracture table. The perineum was snugged up to the perineal post and BLE secured on the table. The L leg was secured to the foot plate of the fracture table and the R leg placed in an extended/abducted position out of the way of c-arm and padded well. Timeout was performed, identifying the correct patient, correct procedure and correct site. Next the L hip fracture was visualized under fluoro and closed reduction performed using the fracture table and a combination of hip adduction, internal rotation and longitudinal traction. The L intertrochanteric femur fracture was reduced into acceptable alignment and then the hip prepped and draped in the usual sterile fashion for a femoral antegrade intramedullary nail procedure. The procedure was begun by using a free guide pin held over the L hip to localize the level of the greater trochanter. Approximately 3cm proximal to this, a longitudinal incision was made on the lateral aspect of the hip approximately 3 cm long. The guidepin was placed over the tip of the greater trochanter and fluoroscopy used to confirm the appropriate starting point on both AP and lateral views. The guidepin was advanced under power into the proximal femur, after which the opening reamer was used to open up the near cortex at the startin
--- NOTE | 2020-03-09 12:59 | HMH.ORTHPN ---
Subjective Date: 03/09/20 Time: 12:45 Principal diagnosis: L hip fracture Interval history: The patient underwent IMN L femur this morning without complication. EBL 150cc. PN: Obj Ex Vital signs: Temp Pulse Resp BP Pulse Ox 97.5 F L 69 16 99/63 L 94 L 03/09/20 12:55 03/09/20 12:55 03/09/20 12:55 03/09/20 12:55 03/09/20 08:00 - Constitutional no acute distress - Routine HEENT Exam Head: Present: normocephalic Eye: Present: EOMI ENT: Present: mucous membranes moist - Routine Neck Exam Present: trachea midline - Routine Respiratory Exam Absent: respiratory distress - Routine Cardiovascular Exam Present: RRR - Routine Abdominal Exam Present: soft - Routine Extremities Exam Comments: surgical dressings intact L hip L lateral hip/medial groin ecchymosis developed after heparin drip started motor/sensory impaired below waist due to spinal anesthetic L calf soft, compressible palpable pedal pulses LLE, foot pink/warm - Routine Skin Exam Present: warm Progress Note: A&P (1) Closed left hip fracture Status: Acute (2) Pulmonary emboli Status: Acute (3) DVT (deep venous thrombosis) Status: Acute (4) HTN (hypertension) Status: Acute (5) Schizophrenia Status: Acute Assessment and Plan for All Diagnoses:: 69yo M POD 0 s/p IMN L femur for IT fx -- WBAT LLE, out of bed with assist -- PT to eval/treat -- d/c [place] after spinal worn off/tomorrow morning -- ice L hip frequently -- ok to restart anticoagulation for PE/DVT tonight -- reinforce dressings for any drainage -- neurovascular checks each shift -- pain control: oral percocet + IV morphine for breakthrough -- encourage IS 10x/hr while awake -- finish 24hr prophy antibiotics -- regular diet -- dispo planning: will need SNF placement, ok to d/c tomorrow from ortho standpoint, whenever medically appropriate per PCP
--- NOTE | 2020-03-09 13:03 | PC.NURSE ---
XR tech at bedside for AP and Lateral hip XR
--- NOTE | 2020-03-09 13:11 | HMH.ACPN2 ---
Internal Medicine - PN: Subj *Date: 03/09/20 *Time: 20:54 Interval history: 69-year-old male patient sitting up in bed respirations easy/even. He reports he had a good night pain is at a tolerable level, he will be going for surgery today for left hip fracture he is agreeable to this. Exam Vital signs and Labs for Last 24 Hours: Temp Pulse Resp BP Pulse Ox 97.5 F L 67 16 112/65 96 03/09/20 12:55 03/09/20 13:00 03/09/20 13:00 03/09/20 13:00 03/09/20 13:00 Laboratory Results - last 24 hr 03/08/20 17:04: APTT 55.8 H* D 03/09/20 00:25: APTT 48.9 H D 03/09/20 06:15: WBC 5.5, RBC 3.58 L, Hgb 10.8 L, Hct 31.1 L, MCV 86.7, MCH 30.1, MCHC 34.7, RDW 14.0, Plt Count 165, MPV 8.1, Neut % (Auto) 61.7, Lymph % (Auto) 26.8, [place] % (Auto) 6.9, Eos % (Auto) 4.4, Baso % (Auto) 0.3, Neut # (Auto) 3.4, Lymph # (Auto) 1.5, [place] # (Auto) 0.4, Eos # (Auto) 0.2, Baso # (Auto) 0.0 03/09/20 06:15: Sodium 137, Potassium 3.3 L, Chloride 105, Carbon Dioxide 27, Anion Gap 8.3, BUN 16, Creatinine 0.60 L, Estimated Creat Clear 78, Estimated GFR 134, Est GFR ( Amer) 162, Glucose 103 H, Calcium 8.5 03/09/20 08:20: APTT 30.9 I & O for Last 24 hours: Intake & Output 03/06/20 03/07/20 03/08/20 03/09/20 23:59 23:59 23:59 23:59 Intake Total 1320 / 1320 2180 / 2180 2632 / 2752 1420 / 1420 Output Total 825 / 825 200 / 200 1999 / 1999 990 / 990 Balance 495 / 495 1979 632 / 752 430 / 430 Weight 169 lb 12.095 oz 171 lb 9 oz 174 lb 0.012 oz 171 lb 10.607 oz - Constitutional no acute distress - *Routine HEENT Exam Head: Present: normocephalic Eye: Present: EOMI ENT: Present: mucous membranes moist - *Routine Respiratory Exam Present: CTA bilaterally. Absent: accessory muscle use - *Routine Cardiovascular Exam Present: RRR - *Routine Abdominal Exam Present: soft, normoactive bowel sounds. Absent: rebound, firm - *Routine Extremities Exam Present: pulses intact, normal capillary refill. Absent: cyanosis, full ROM, calf tenderness - *Routine Skin Exam Present: intact, dry, warm. Absent: erythema - *Routine Neurological Exam Present: alert, oriented X3. Absent: pronator drift - Routine Psychiatric Exam Present: normal affect, normal thought process. Absent: auditory hallucinations, tactile hallucinations Assessment and Plan (1) Closed left hip fracture Status: Acute Qualifiers: Encounter type: initial encounter Qualified Code(s): S72.002A - Fracture of unspecified part of neck of left femur, initial encounter for closed fracture Category: Medical Code(s): S72.002A - Fracture of unspecified part of neck of left femur, initial encounter for closed fracture (2) Pulmonary emboli Status: Acute Qualifiers: Pulmonary embolism type: unspecified Chronicity: acute Acute cor pulmonale presence: without acute cor pulmonale Qualified Code(s): I26.99 - Other pulmonary embolism without acute cor pulmonale Category: Medical Code(s): I26.99 - Other pulmonary embolism without acute cor pulmonale (3) DVT (deep venous thrombosis) Status: Acute Qualifiers: DVT location: lower extremity Affected thrombotic vein of extremity: unspecified vein of extremity Chronicity: acute Laterality: left Qualified Code(s): I82.402 - Acute embolism and thrombosis of unspecified deep veins of left lower extremity Category: Medical Code(s): I82.409 - Acute embolism and thrombosis of unspecified deep veins of unspecified lower extremity (4) HTN (hypertension) Status: Acute Qualifiers: Hypertension type: essential hypertension Qualified Code(s): I10 - Essential (primary) hypertension Category: Medical Code(s): I10 - Essential (primary) hypertension (5) Schizophrenia Status: Acute Qualifiers: Schizophrenia type: unspecified Qualified Code(s): F20.9 - Schizophrenia, unspecified Category: Medical Code(s): F20.9 - Schizophrenia, unspecified - Assessment and
--- NOTE | 2020-03-09 13:13 | PC.NURSE ---
Polar care applied to left lateral hip, pt tolerated well
--- NOTE | 2020-03-09 13:24 | PC.NURSE ---
Pt arrived back to the floor from surgery
[2020-03-09 15:10] LABS: Microscopic,Cath URINE MICROSCOPIC (MICROSCOPIC)
[2020-03-09 16:57] LABS: Appearance,Urine/Cath CLEAR (Clear); Bilirubin,Cath Negative (Negative); Blood, Urine/Cath TRACE-I (Negative); Color,Urine/Cath YELLOW (Yellow); Glucose,Urine/Cath (UA) Negative (Negative); Ketones,Urine/Cath Negative (Negative); Leukocyte Esterase,Cath Negative (Negative); Nitrate,Cath Negative (Negative); PH,Urine/Cath 6.5 (5.0-8.5); Protein,Urine/Cath Negative (Negative); Specific Gravity, Urine/Cath 1.015 (1.005-1.030)
[2020-03-09 17:18] LABS: RBC,Urine/Cath Occasional # /hpf (0-3); WBC,Urine/Cath Occasional #/hpf (0-3)
--- NOTE | 2020-03-09 20:52 | PC.NURSE ---
Pt had temp of 102 post tylenol at approx 1830. Did apply ice packs, also reapplied dsg to L hip and appled mittens as pt pulled dsg off. This nurse educated pt to leave dsg in place. Meds per apr. CB in reach and VSS. Polor pack in place to l hip and scud to R leg is in place. Pt refused to eat supper and denies pain. Report given to Mackenzie Marin RN.
[2020-03-10] VITALS (7 sets, daily range): BP systolic 104–144; BP diastolic 66–89; PULSE 72–106; RESP 16–20; TEMP 36.7–38.2; O2SAT 95–98; BMI 27.5
[2020-03-10 06:53] LABS: Chloride 107 mmol/L (98-107); Potassium 3.1 mmoL/L (3.5-5.1); Sodium 137 mmol/L (136-145)
[2020-03-10 06:56] LABS: Alanine Aminotransferase 50 U/L (12-78); Albumin Level 2.9 g/dl (3.5-5.0); Alkaline Phosphatase 50 U/L (38-126); Anion Gap 6.1 mEq/L (5-15); Aspartate Amino Transferase 65 U/L (17-59); Blood Urea Nitrogen 19 mg/dl (9-20); Calcium 8.5 mg/dl (8.4-10.2); Carbon Dioxide 27 mmol/L (22.0-30.0); Creatinine Clearance Estimated 78 mL/min (50-200); Estimated Glomerular Filt Rate 134 ml/min (>60); GFR (African American) 162 ML/MIN (>60); Glucose 113 mg/dl (74-100); Total Protein,Serum 5.9 g/dl (6.3-8.2)
[2020-03-10 06:58] LABS: Basophils % 0.2 % (0.1-2.0); Eosinophils % 0.7 % (0.1-12.0); Hemoglobin 11.2 g/dL (14.1-18.0); Lymphocytes % 15.5 % (10-50); Mean Corpuscular HGB Conc 33.8 g/dL (31.8-35.4); Mean Corpuscular Hemoglobin 29.8 pg (27.0-31.2); Mean Corpuscular Volume 88.2 fl (80-94); Mean Platelet Volume 9.3 fl (7.4-10.4); Monocytes # 0.5 K/mm3 (0.1-1.0); Monocytes % 8.3 % (1.7-9.3); Neutrophils # 4.8 K/mm3 (1.8-7.8); Neutrophils % 75.2 % (37.0-80.0); Platelet Count 184 K/mm3 (142-424); Red Blood Count 3.75 M/mm3 (4.60-6.20); Red Cell Distribution Width 14.8 % (11.5-17.5); White Blood Count 6.3 K/mm3 (4.8-10.8)
--- NOTE | 2020-03-10 07:39 | PC.NURSE ---
PT HAS NEW IV PLACED. SHELLEY DRAINING YELLOW URINE. IV PATENT AND INFUSING PER ORDER. NO ACUTE CHANGES. DRESSING REPLACED AT BEGINNING OF SHIFT DUE TO PT REMOVING OTHER DRESSING. REPORTED PAIN AND PRN MED GIVEN WITH RELIEF. PT WAS FEBRILE AND PRN MEDS GIVEN. CALL LIGHT IN REACH. BED SAFETY ON. WILL CONTINUE TO MONITOR
--- NOTE | 2020-03-10 09:00 | HMH.ACPN2 ---
Internal Medicine - PN: Subj *Date: 03/10/20 *Time: 21:08 Interval history: 69-year-old male patient laying in bed with eyes closed, awakens with verbal stimuli. He reports he had a good evening, slept well, pain is under control. Nursing staff reports patient was restless during the night pulling off his hip dressing and removing his IV. Temperature during the night 102, we will x-ray chest, UA, Covid swab Exam Vital signs and Labs for Last 24 Hours: Temp Pulse Resp BP Pulse Ox 99.2 F 100 H 18 135/71 96 03/10/20 20:00 03/10/20 20:00 03/10/20 20:00 03/10/20 20:00 03/10/20 20:00 Laboratory Results - last 24 hr 03/10/20 06:20: WBC 6.3, RBC 3.75 L, Hgb 11.2 L, Hct 33.0 L, MCV 88.2, MCH 29.8, MCHC 33.8, RDW 14.8, Plt Count 184, MPV 9.3, Neut % (Auto) 75.2, Lymph % (Auto) 15.5, [place] % (Auto) 8.3, Eos % (Auto) 0.7, Baso % (Auto) 0.2, Neut # (Auto) 4.8, Lymph # (Auto) 1.0, [place] # (Auto) 0.5, Eos # (Auto) 0.0, Baso # (Auto) 0.0 03/10/20 06:20: Sodium 137, Potassium 3.1 L, Chloride 107, Carbon Dioxide 27, Anion Gap 6.1, BUN 19, Creatinine 0.60 L, Estimated Creat Clear 78, Estimated GFR 134, Est GFR ( Amer) 162, Glucose 113 H, Calcium 8.5, Total Bilirubin 1.0, AST 65 H, ALT 50, Alkaline Phosphatase 50, Total Protein 5.9 L, Albumin 2.9 L, Globulin 3.0, Albumin/Globulin Ratio 1.0 L 03/10/20 12:12: D-Dimer 2.66 H I & O for Last 24 hours: Intake & Output 03/07/20 03/08/20 03/09/20 03/10/20 23:59 23:59 23:59 23:59 Intake Total 2180 / 2180 2632 / 2752 1520 / 1520 1109 / 1109 Output Total 200 / 200 1999 / 1999 990 / 990 1900 / 1900 Balance 1979 / 1979 632 / 752 530 / 530 -791 / -791 Weight 171 lb 9 oz 174 lb 0.012 oz 171 lb 10.607 oz 181 lb 9 oz Microbiology Reports for the Last 24 Hours: Microbiology 03/10/20 10:50 Nasopharyngeal Coronavirus COVID-19 PCR - Final - Constitutional no acute distress - *Routine Respiratory Exam Present: CTA bilaterally. Absent: accessory muscle use, patient mechanically ventilated - *Routine Cardiovascular Exam Present: RRR - *Routine Abdominal Exam Present: soft, normoactive bowel sounds. Absent: tenderness, firm - *Routine Extremities Exam Present: pulses intact. Absent: cyanosis, full ROM, calf tenderness - *Routine Skin Exam Present: dry, warm, wounds. Absent: cyanosis, jaundice Comments: L Hip incision,edges well approximated - *Routine Neurological Exam Present: alert, normal speech. Absent: pronator drift, hemineglect - Routine Psychiatric Exam Present: normal affect, cooperative. Absent: auditory hallucinations, visual hallucinations Assessment and Plan (1) Closed left hip fracture Status: Acute Qualifiers: Encounter type: initial encounter Qualified Code(s): S72.002A - Fracture of unspecified part of neck of left femur, initial encounter for closed fracture Category: Medical Code(s): S72.002A - Fracture of unspecified part of neck of left femur, initial encounter for closed fracture (2) Pulmonary emboli Status: Acute Qualifiers: Pulmonary embolism type: unspecified Chronicity: acute Acute cor pulmonale presence: without acute cor pulmonale Qualified Code(s): I26.99 - Other pulmonary embolism without acute cor pulmonale Category: Medical Code(s): I26.99 - Other pulmonary embolism without acute cor pulmonale (3) DVT (deep venous thrombosis) Status: Acute Qualifiers: DVT location: lower extremity Affected thrombotic vein of extremity: unspecified vein of extremity Chronicity: acute Laterality: left Qualified Code(s): I82.402 - Acute embolism and thrombosis of unspecified deep veins of left lower extremity Category: Medical Code(s): I82.409 - Acute embolism and thrombosis of unspecified deep veins of unspecified lower extremity (4) HTN (hypertension) Status: Acute Qualifiers: Hypertension type: essential hypertension Qualified Code(s): I10 - Essential (primary) hyper
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
--- NOTE | 2020-03-10 09:44 | HMH.PTEV ---
Physical Therapy Evaluation Rehab PT IP Evaluation Start: 03/09/20 12:54 Freq: ONCE Status: Active Protocol: Document 03/10/20 09:40 NINA (Rec: 03/10/20 09:44 NINA [id number]) Subjective/History History History Brought in by ambulance from [facility]. States that he was getting ready for bed when he fell, injuring his left hip. Complains of pain in his hip that goes all the way down to his knee. Denies any injury to head or neck, chest, abdomen, or back. Denies numbness or weakness. Subjective Subjective Pt reports he has pain in his L leg Rehab PT IP Eval Objective Appearance Patient Behavior Resistive to Care Patient Orientation Name,Birthday Difficulty following instructions mild Speech Pattern Clear Ambulation Patient Able to Ambulate No Balance Ability to Arise Unable Sitting Balance Steady, safe Standing Balance Unsteady Dynamic Sitting Balance Ability Fair Dynamic Standing Balance Ability Poor Transfers Bed Transfer Ability Minimal x 1 (25% assist) Sit to Stand Bed Transfer Ability Maximum x 1 (75% assist) Rehab PT IP prob,goals,plan Problems Date of Evaluation: 03/10/20 PT IP Problems Bed Mobility,Transfers,Gait, Balance,Self care,Safety Rehab Potential Rehab Potential Poor Equipment Needs Assistive Devices Rolling / Wheeled Walker Plan PT Intervention Plan Bed Mobility,Transfers,Gait, Balance,Self care,Safety, Therapeutic Exercise PT Plan Frequency BID Duration LOS Discharge Goals Bed Transfer Ability Minimal x 1 (25% assist) Sit to Stand Chair Transfer Ability Maximum x 1 (75% assist) Ambulation Assistive Device Rolling Walker Ambulation Distance (feet) 15 Discharge Plan PT Discharge Plan At this time pt will need higher level of care than previous living arrangement. Pt will need continued rehab to allow return to PLOF and PLOI. Without continued care and therapy pt is at increased risk for falls, fractures, surgic
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
--- NOTE | 2020-03-10 11:24 | HMH.ORTHPN ---
Subjective Date: 03/10/20 Time: 10:30 Principal diagnosis: L hip fracture Interval history: The patient is doing well this morning, calm, but was agitated overnight. He has pulled out IVs, pulls off his ice pack, and has pulled his surgical dressings off. He had a fever up to 102 degrees overnight. No chest pain or shortness of breath reported at the moment. PN: Obj Ex Vital signs: Temp Pulse Resp BP Pulse Ox 98.9 F 95 H 20 144/89 H 98 03/10/20 08:00 03/10/20 08:00 03/10/20 08:00 03/10/20 08:00 03/10/20 08:00 - Constitutional no acute distress - Routine HEENT Exam Head: Present: normocephalic Eye: Present: EOMI ENT: Present: mucous membranes moist - Routine Neck Exam Present: trachea midline - Routine Respiratory Exam Absent: respiratory distress, wheezes - Routine Cardiovascular Exam Present: RRR - Routine Abdominal Exam Present: soft. Absent: tenderness - Routine Extremities Exam Comments: L hip dressings pulled off by patient, nothing on incisions; they are clean and dry, no drainage ecchymosis lateral L hip/medial L thigh -- started after initiation of heparin drip, no change from OR yesterday +DF/PF/EHL LLE SILT distally LLE in all distributions L calf soft, non-tender; negative Homans palpable pedal pulses LLE, foot pink/warm mild tenderness to palpation L hip - Routine Skin Exam Present: warm - Routine Neurological Exam Present: alert, moving all extremities, vision grossly intact, hearing grossly intact. Absent: sensory deficit, motor deficit - Urinary Catheter Management Caballero Cath placed during this visit: yes Urethral indwelling: Yes Reason for continuing: Surgical procedure Insertion date: 03/09/20 Progress Note: A&P (1) Closed left hip fracture Status: Acute (2) Pulmonary emboli Status: Acute (3) DVT (deep venous thrombosis) Status: Acute (4) HTN (hypertension) Status: Acute (5) Schizophrenia Status: Acute Assessment and Plan for All Diagnoses:: 69yo M POD 1 s/p IMN L femur for IT fx -- WBAT LLE, out of bed with assist -- PT to continue while admitted -- d/c caballero now -- ice L hip frequently -- anticoagulation for PE/DVT per primary team -- place new dressings on hip -- neurovascular checks each shift -- pain control: oral percocet + IV morphine for breakthrough -- encourage IS 10x/hr while awake -- finish 24hr prophy antibiotics today -- regular diet -- dispo planning: care management working on SNF placement, ok to d/c from ortho standpoint, will need ongoing PT at SNF. D/c instructions and pain Rx placed on patient's chart. Follow-up with me in clinic 03/22/20.
[2020-03-10 12:40] LABS: D-Dimer 2.66 ug/mL (0.0-0.5)
--- NOTE | 2020-03-10 20:16 | PC.NURSE ---
Pt is alert to self. NAD. Dsg to L hip changed and cdi. Meds per apr. CB in reach. VSS. Diop removed and pt has urinal at bedside. A urine sample is needed, have made Mackenzie Marin RN aware of this.
[2020-03-11 02:14] VITALS: RESP 16
[2020-03-11 04:00] VITALS: BP 100/67; PULSE 82; RESP 17; TEMP 36.6; O2SAT 96
--- NOTE | 2020-03-11 04:19 | PC.NURSE ---
pt has had no acute changes. slept well this shift. pt dislodged iv and had to be replaced. dressing in place to left hip. pt has voided since caballero cath removal. call light in reach. bed safety on. vss. will continue to monitor
[2020-03-11 05:00] VITALS: BMI 26.9
[2020-03-11 06:00] VITALS: RESP 20
[2020-03-11 06:42] LABS: Basophils % 0.3 % (0.1-2.0); Eosinophils # 0.1 K/mm3 (0.0-0.4); Eosinophils % 2.3 % (0.1-12.0); Hematocrit 28.9 % (42.0-52.0); Lymphocytes # 1.2 K/mm3 (0.7-4.5); Lymphocytes % 20.4 % (10-50); Mean Corpuscular HGB Conc 32.2 g/dL (31.8-35.4); Mean Corpuscular Hemoglobin 28.7 pg (27.0-31.2); Mean Corpuscular Volume 88.9 fl (80-94); Mean Platelet Volume 7.9 fl (7.4-10.4); Monocytes # 0.4 K/mm3 (0.1-1.0); Monocytes % 6.4 % (1.7-9.3); Neutrophils # 4.3 K/mm3 (1.8-7.8); Neutrophils % 70.7 % (37.0-80.0); Platelet Count 215 K/mm3 (142-424); Red Blood Count 3.25 M/mm3 (4.60-6.20); Red Cell Distribution Width 13.9 % (11.5-17.5)
[2020-03-11 06:46] LABS: Chloride 106 mmol/L (98-107); Sodium 138 mmol/L (136-145)
[2020-03-11 06:47] LABS: Potassium 3.1 mmoL/L (3.5-5.1)
[2020-03-11 06:49] LABS: Blood Urea Nitrogen 25 mg/dl (9-20); Creatinine Clearance Estimated 80 mL/min (50-200); Estimated Glomerular Filt Rate 134 ml/min (>60); GFR (African American) 162 ML/MIN (>60)
[2020-03-11 06:50] LABS: Anion Gap 5.1 mEq/L (5-15); Calcium 8.6 mg/dl (8.4-10.2); Carbon Dioxide 30 mmol/L (22.0-30.0); Glucose 103 mg/dl (74-100)
[2020-03-11 06:51] LABS: INR 2.15 (0.9-1.1); Prothrombin Time 22.3 seconds (9.4-11.8)
[2020-03-11 07:17] LABS: Hemoglobin 9.3 g/dL (14.1-18.0)
[2020-03-11 08:00] VITALS: BP 140/70; PULSE 75; RESP 17; TEMP 37.2; O2SAT 98
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
--- NOTE | 2020-03-11 10:35 | HMH.ORTHPN ---
Subjective Date: 03/11/20 Time: 08:00 Principal diagnosis: L hip fracture Interval history: The patient is doing well this morning, resting comfortably. He continues to pull his surgical dressings off the L hip. PN: Obj Ex Vital signs: Temp Pulse Resp BP Pulse Ox 98.9 F 75 17 140/70 98 03/11/20 08:00 03/11/20 08:00 03/11/20 08:00 03/11/20 08:00 03/11/20 08:00 - Constitutional no acute distress - Routine HEENT Exam Head: Present: normocephalic Eye: Present: EOMI ENT: Present: mucous membranes moist - Routine Neck Exam Present: trachea midline - Routine Respiratory Exam Absent: respiratory distress - Routine Cardiovascular Exam Present: RRR - Routine Abdominal Exam Present: soft - Routine Extremities Exam Comments: L hip dressings pulled off by patient, nothing on incisions; they are clean and dry, no drainage ecchymosis lateral L hip/medial L thigh -- started after initiation of heparin drip +DF/PF/EHL LLE SILT distally LLE in all distributions L calf soft, non-tender; negative Homans palpable pedal pulses LLE, foot pink/warm mild tenderness to palpation L hip - Routine Skin Exam Present: warm - Routine Neurological Exam Present: moving all extremities, normal tone - Urinary Catheter Management Diop Cath placed during this visit: yes Urethral indwelling: No Insertion date: 03/09/20 Progress Note: A&P (1) Closed left hip fracture Status: Acute (2) Pulmonary emboli Status: Acute (3) DVT (deep venous thrombosis) Status: Acute (4) HTN (hypertension) Status: Acute (5) Schizophrenia Status: Acute Assessment and Plan for All Diagnoses:: 69yo M POD 2 s/p IMN L femur for IT fx -- WBAT LLE, out of bed with assist -- PT to continue while admitted -- ice L hip frequently -- anticoagulation for PE/DVT per primary team -- neurovascular checks each shift -- pain control: oral percocet + IV morphine for breakthrough -- encourage IS 10x/hr while awake -- dispo planning: ok to d/c from ortho standpoint, will need ongoing PT at SNF. D/c instructions and pain Rx placed on patient's chart. Follow-up with me in clinic 03/22/20.
--- NOTE | 2020-03-11 11:38 | HMH.PULMPN ---
Internal Medicine - PN: Subj *Date: 03/11/20 *Time: 11:38 Interval history: No acute respiratory events overnight. Patient remained on room air. Exam Narrative: Patient refused physical examination today. Appears comfortable on room air. Assessment and Plan (1) Closed left hip fracture Status: Acute Qualifiers: Encounter type: initial encounter Qualified Code(s): S72.002A - Fracture of unspecified part of neck of left femur, initial encounter for closed fracture Category: Medical Code(s): S72.002A - Fracture of unspecified part of neck of left femur, initial encounter for closed fracture (2) Pulmonary emboli Status: Acute Qualifiers: Pulmonary embolism type: unspecified Chronicity: acute Acute cor pulmonale presence: without acute cor pulmonale Qualified Code(s): I26.99 - Other pulmonary embolism without acute cor pulmonale Category: Medical Code(s): I26.99 - Other pulmonary embolism without acute cor pulmonale (3) DVT (deep venous thrombosis) Status: Acute Qualifiers: DVT location: lower extremity Affected thrombotic vein of extremity: unspecified vein of extremity Chronicity: acute Laterality: left Qualified Code(s): I82.402 - Acute embolism and thrombosis of unspecified deep veins of left lower extremity Category: Medical Code(s): I82.409 - Acute embolism and thrombosis of unspecified deep veins of unspecified lower extremity (4) HTN (hypertension) Status: Acute Qualifiers: Hypertension type: essential hypertension Qualified Code(s): I10 - Essential (primary) hypertension Category: Medical Code(s): I10 - Essential (primary) hypertension (5) Schizophrenia Status: Acute Qualifiers: Schizophrenia type: unspecified Qualified Code(s): F20.9 - Schizophrenia, unspecified Category: Medical Code(s): F20.9 - Schizophrenia, unspecified - Assessment and plan all Dx Assessment and Plan for all problems:: #Pulmonary embolism: 69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 Patient has been clinically stable since admission. Troponins within normal on admission. Patient respiratory status remained stable since admission on room air with no discomfort. Patient successfully underwent hip surgery yesterday with no complications. Unclear whether this PE is acute or subacute or chronic given his stable respiratory status. Unclear whether this is a provoked or unprovoked PE at this point of time. Patient on full dose anticoagulation with warfarin. D-dimer elevated at 2.66. Patient is a high risk for fall. We will continue anticoagulation for at least 3 months and will further discuss the risk-benefit ratio to determine long-term anticoagulation at that point. #Thank you for involving pulmonary in this patient care. Pulmonary will sign off at this point of time. Please call with any further questions or concerns
[2020-03-11 12:00] VITALS: BP 93/74; PULSE 106; RESP 18; TEMP 36.4; O2SAT 96
== END 2020-03-11 13:49 | DRG 480 ==
LOC: ER 18:02 → 2ND 19:07
PROVIDERS: Internal Medicine Pulmonary Disease; Nurse Practitioner Family; Orthopaedic Surgery; Admitting Provider Family Medicine; Emergency Provider Emergency Medicine; Visit Provider Emergency Medicine
PROC: 0QS706Z Reposition Left Upper Femur with Intramedullary Internal Fixation Device, Open Approach (ICD-10-PCS; CPT 27245; principal; 2020-03-09 10:30)
DX: S72.142A Displaced intertrochanteric fracture of left femur, initial encounter for closed fracture (principal); I26.99 Other pulmonary embolism without acute cor pulmonale; I82.442 Acute embolism and thrombosis of left tibial vein; W06.XXXA Fall from bed, initial encounter; I82.462 Acute embolism and thrombosis of left calf muscular vein; F20.9 Schizophrenia, unspecified; Z79.899 Other long term (current) drug therapy
CPT/HCPCS: 27245; 36415; 71045; 71275; 73502; 73552; 76000; 80048; 80053; 81001; 84484; 85025; 85378; 85610; 85730; 86328; 87581; 87633; 87798; 93005; 93306; 93970; 96372; 96375; 97162; 97530; 99283; C1713; C1776; J2405; Q9967; U0003

== ENCOUNTER → 2020-03-15 08:41 | Outpatient (CLI) | payer OTHER, SELFPAY ==
[2020-03-15 20:32] LABS: Prothrombin Time 45.6 seconds (9.4-11.8)
[2020-03-15 20:33] LABS: INR 4.92 (0.9-1.1)
== END ==
PROVIDERS: Visit Provider Emergency Medicine
DX: Z51.81 Encounter for therapeutic drug level monitoring (principal); Z79.01 Long term (current) use of anticoagulants
CPT/HCPCS: 36415; 85610

== ENCOUNTER → 2020-03-22 07:46 | Outpatient (CLI) | payer OTHER, SELFPAY ==
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
[2020-03-22 15:28] LABS: INR 1.22 (0.9-1.1); Prothrombin Time 12.4 seconds (9.4-11.8)
== END ==
PROVIDERS: PCP Nurse Practitioner Family; Visit Provider Nurse Practitioner Family
DX: S72.002A Fracture of unspecified part of neck of left femur, initial encounter for closed fracture (principal); Z51.81 Encounter for therapeutic drug level monitoring; Z79.01 Long term (current) use of anticoagulants; W19.XXXA Unspecified fall, initial encounter
CPT/HCPCS: 36415; 73502; 85610

== ENCOUNTER → 2020-03-25 11:04 | Outpatient (CLI) | payer OTHER, SELFPAY ==
[2020-03-25 15:20] LABS: INR 1.24 (0.9-1.1); Prothrombin Time 13.5 seconds (9.4-11.8)
== END ==
PROVIDERS: Visit Provider Nurse Practitioner Family
DX: Z51.81 Encounter for therapeutic drug level monitoring (principal); Z79.01 Long term (current) use of anticoagulants
CPT/HCPCS: 36415; 85610

== ENCOUNTER → 2020-03-26 14:45 | Outpatient (CLI) | payer OTHER, SELFPAY ==
[2020-03-26 15:36] LABS: INR 1.25 (0.9-1.1); Prothrombin Time 12.7 seconds (9.4-11.8)
== END ==
PROVIDERS: Visit Provider Nurse Practitioner Family
DX: Z51.81 Encounter for therapeutic drug level monitoring (principal); Z79.01 Long term (current) use of anticoagulants; I82.493 Acute embolism and thrombosis of other specified deep vein of lower extremity, bilateral
CPT/HCPCS: 85610

== ENCOUNTER → 2020-03-31 09:52 | Outpatient (CLI) | payer OTHER, SELFPAY ==
[2020-03-31 17:26] LABS: INR 1.19 (0.9-1.1)
== END ==
PROVIDERS: Visit Provider Nurse Practitioner Family
DX: Z51.81 Encounter for therapeutic drug level monitoring (principal); Z79.01 Long term (current) use of anticoagulants
CPT/HCPCS: 36415; 85610

== ENCOUNTER → 2020-04-01 07:04 | Outpatient (CLI) | payer OTHER, SELFPAY ==
[2020-04-01 14:31] LABS: INR 1.24 (0.9-1.1); Prothrombin Time 13.5 seconds (9.4-11.8)
== END ==
PROVIDERS: Visit Provider Nurse Practitioner Family
DX: Z51.81 Encounter for therapeutic drug level monitoring (principal); Z79.01 Long term (current) use of anticoagulants
CPT/HCPCS: 36415; 85610

== ENCOUNTER → 2020-04-05 09:27 | Outpatient (CLI) | payer OTHER, SELFPAY ==
[2020-04-05 11:01] LABS: INR 1.11 (0.9-1.1)
== END ==
PROVIDERS: Visit Provider Nurse Practitioner Family
DX: Z51.81 Encounter for therapeutic drug level monitoring (principal); Z79.01 Long term (current) use of anticoagulants
CPT/HCPCS: 36415; 85610

== ENCOUNTER → 2020-04-12 07:41 | Outpatient (CLI) | payer OTHER, SELFPAY ==
[2020-04-12 16:39] LABS: Prothrombin Time 16.1 seconds (9.4-11.8)
== END ==
PROVIDERS: Visit Provider Nurse Practitioner Family
DX: Z51.81 Encounter for therapeutic drug level monitoring (principal); Z79.01 Long term (current) use of anticoagulants
CPT/HCPCS: 36415; 85610

== ENCOUNTER → 2020-04-19 08:55 | Outpatient (CLI) | payer OTHER, SELFPAY ==
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
== END ==
PROVIDERS: PCP Internal Medicine Adolescent Medicine; Visit Provider Orthopaedic Surgery
DX: S72.143A Displaced intertrochanteric fracture of unspecified femur, initial encounter for closed fracture (principal)
CPT/HCPCS: 73502

== ENCOUNTER 2020-05-14 19:21 | Observation (INO) | payer MEDICAID, SELFPAY ==
[2020-05-14 19:07] VITALS: BP 129/73; PULSE 73; RESP 18; TEMP 37.1; O2SAT 97; BMI 27.8
--- NOTE | 2020-05-14 19:25 | CT_ITS ---
PROCEDURE: CT HEAD/BRAIN WO CON CLINICAL INDICATION: fall Head injury with headache/pain, contusion, abrasion or hematoma COMPARISON: CT CT HEAD/BRAIN WO CON from 01/06/2020 TECHNIQUE: Axial images obtained. All CT scans at the facility use one or more dose reduction, viz: automated exposure control, ma/kV adjustment per patient size (including targeted exams where dose is matched to indication, i.e. head), or iterative reconstruction technique. FINDINGS: No midline shift, mass effect, intracranial hemorrhage, hydrocephalus, or extra-axial fluid collection is evident. There is hypoattenuation of the periventricular white matter consistent with microangiopathic changes. The calvarium has an unremarkable appearance. No mastoid effusion. Mild mucosal thickening of the ethmoid sinuses. IMPRESSION: No acute intracranial finding Dictated by: Tino Vergara MD 05/15/2020 08:51 Tino Vergara MD in [facility] 05/15/2020 08:51
--- NOTE | 2020-05-14 19:25 | CT_ITS ---
PROCEDURE: CT CERVICAL SPINE WO CON CLINICAL INDICATION: fall Posttraumatic pain, Neck injury with pain, contusion/abrasion or hematoma, cervical sprain/strain the COMPARISON: CT CT CERVICAL SPINE WO CON from 01/06/2020 TECHNIQUE: Axial images obtained with sagittal and coronal reformats. All CT scans at the facility use one or more dose reduction, viz: automated exposure control, ma/kV adjustment per patient size (including targeted exams where dose is matched to indication, i.e. head), or iterative reconstruction technique. Axial spiral CT scanning performed of the cervical spine beginning at the base of the skull and continuing to the upper T-spine. 3-D multiplanar reconstruction with 3-D manipulation of volumetric data set in image rendering was completed by the radiologist and/or technologist with the supervision of the radiologist on independent workstation. FINDINGS: No obvious fracture or dislocation. Multilevel cervical spondylosis. C1-C2: Degenerative changes at the atlantoaxial joint. C2-C3: Degenerative disc disease with calcified posterior longitudinal ligament. C3-C4: Degenerative disc disease with endplate osteophytes with severe right-sided foraminal narrowing from uncovertebral hypertrophy and facet hypertrophy. C4-C5: Degenerative disc disease with mild right-sided foraminal narrowing. C5-C6: Degenerative disc disease with endplate hypertrophic change C6-C7: Degenerative disc disease with endplate hypertrophic change C7-T1: Unremarkable. Lung apices are clear. Scattered small nodes are present in the neck. IMPRESSION: No acute fracture. Multilevel cervical spondylosis Dictated by: Tino Vergara MD 05/15/2020 08:54 Tino Vergara MD in [place] 05/15/2020 08:54
--- NOTE | 2020-05-14 19:25 | HMH.EDFALL ---
ED Disposition Clinical Impression: Head trauma Disposition: Still a Patient Condition on Discharge: Fair Referrals: Freddie Willis MD [Primary Care Provider] - - Critical Care Critical Care Time: No Attestation: On , the high probability of a clinically significant, sudden or life threatening deterioration of the following system(s) required my full and direct attention, intervention and personal management. The time I documented below is in addition to time spent performing reported procedures but includes the following listed in this critical care notation. Medical Decision Making - Medical Records Medical records reviewed: Yes: I reviewed the patient's medical records. - Nicolás Inquiry Pt receiving controlled substance: No Vital Signs: 05/14/20 19:07 Temperature 98.8 F Temperature Source Oral Pulse Rate [Right Brachial] 73 Respiratory Rate 18 Blood Pressure [Right Arm] 129/73 Blood Pressure Mean [Right Arm] 91 Blood Pressure Source [Right Arm] Automatic Cuff 02 Sat by Pulse Oximetry 97 Oxygen Delivery Method Room Air Orders (Tests/Meds): ED MEDICATIONS Discontinued Medications Generic Name Dose Route Start Last Admin Trade Name Freq PRN Reason Stop Dose Admin Haloperidol Lactate 5 mg 05/14/20 21:04 05/14/20 21:05 Haloperidol Lactate 5 Mg/Ml Vial IM 05/14/20 21:05 5 mg ONCE ONE Administration Tetanus/Reduced Diphtheria/Acell Pertussis 0.5 ml 05/14/20 20:46 05/14/20 21:06 Tet/Diphth/Pert-Adult 0.5ml Syringe IM 05/14/20 20:47 0.5 ml .ONCE ONE Administration ORDERS Category Date Time Status CT cervical spine wo con Stat Cat Scan 05/14/20 19:[address] head/brain wo con Stat Cat Scan 05/14/20 19:25 Ordered XR chest portable Stat Exams 05/14/20 21:02 Ordered XR pelvis 1-2V Stat Exams 05/14/20 21:02 Ordered Activated Partial Thrombo Time Stat Lab 05/14/20 20:45 Ordered Basic Metabolic Panel Stat Lab 05/14/20 20:45 Ordered Complete Blood Count Auto Diff Stat Lab 05/14/20 20:45 Ordered Prothrombin Time INR Stat Lab 05/14/20 20:45 Ordered TSH [Thyroid Stimulating Hormone] Stat Lab 05/14/20 20:45 Ordered Urinalysis and Microscopic Stat Lab 05/14/20 20:45 Ordered Medical Decision Narrative: 69-year-old male with a history of Xarelto use and multiple falls who presents after a fall from standing with a small laceration to the posterior head. CT of the head will be ordered as well as basic laboratory data. He is pending CT scan at the time of handoff to oncoming physician. Prior to handoff the patient had a fall out of bed worsening the laceration to the posterior head. He is still pending CT at time of handoff Fall HPI - General Chief Complaint: Fall Stated Complaint: Fall and head lac Time Seen by Provider: 05/14/20 19:25 Mode of Arrival: EMS Source of Information: Patient, EMS Limitations: Altered Mental Status Description of Symptoms (Recalled from ER Triage Doc. by RN): Per EMS, they were called out d/t pt falling and hit the back of his head. Pt reports he's been falling a lot . There is a small Y shaped lac to posterior head. Small amount of dried blood on head and hands. Pt reports pain to the top of his head. He is able to move legs and arms. Pt denies any vision issues. Pt is a poor historian of his medical history. - History of Present Illness HPI Narrative: 69-year-old male brought in from a mental detention with a history of schizophrenia and dementia for a fall with a laceration to the back of the head. Patient is unable to provide detailed history as he is disoriented. Report from EMS was of a fall from standing with negative LOC. Reports that he has a history of frequent falls. He is on Xarelto for blood thinner. Patient is complaining of no pain at this time. - Related Data Home Medications Medication Instructions Recorded Confirmed Benztropine Mesylate [Cogentin 1mg 1 mg PO TID 01/06/20 04/19/20 tablet] E
[2020-05-14 19:30] VITALS: BP 122/74; PULSE 79; RESP 18; O2SAT 98
[2020-05-14 21:00] VITALS: BP 157/97; PULSE 91; RESP 20; O2SAT 95
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
[2020-05-14 21:22] LABS: Basophils % 0.3 % (0.1-2.0); Eosinophils # 0.1 K/mm3 (0.0-0.4); Eosinophils % 1.5 % (0.1-12.0); Hematocrit 41.5 % (42.0-52.0); Hemoglobin 13.6 g/dL (14.1-18.0); Lymphocytes # 1.3 K/mm3 (0.7-4.5); Lymphocytes % 20.4 % (10-50); Mean Corpuscular HGB Conc 32.7 g/dL (31.8-35.4); Mean Corpuscular Hemoglobin 27.5 pg (27.0-31.2); Mean Platelet Volume 8.1 fl (7.4-10.4); Monocytes # 0.5 K/mm3 (0.1-1.0); Monocytes % 6.9 % (1.7-9.3); Neutrophils # 4.6 K/mm3 (1.8-7.8); Neutrophils % 70.8 % (37.0-80.0); Platelet Count 183 K/mm3 (142-424); Red Blood Count 4.95 M/mm3 (4.60-6.20); Red Cell Distribution Width 13.6 % (11.5-17.5); White Blood Count 6.5 K/mm3 (4.8-10.8)
--- NOTE | 2020-05-14 21:27 | PC.NURSE ---
@ 2057 pt was witnessed at edge of bed, then slid off, hit head on the ground. Pt was assisted back into the bed. Previous head wound began to bleed. Gauze placed to wound and pressure held, then pressure dressing applied. MD Bower came to bedside, assessed pt, new orders placed, and pt now 1:1 established at this time. slot shift supervisor notified.
--- NOTE | 2020-05-14 21:28 | PC.NURSE ---
Radiology aware of scans
[2020-05-14 21:30] LABS: Chloride 106 mmol/L (98-107)
[2020-05-14 21:31] VITALS: BP 114/76; PULSE 76; RESP 18; O2SAT 96
[2020-05-14 21:31] LABS: Potassium 4.1 mmoL/L (3.5-5.1); Sodium 139 mmol/L (136-145)
[2020-05-14 21:34] LABS: Anion Gap 12.1 mEq/L (5-15); Blood Urea Nitrogen 9 mg/dl (9-20); Calcium 9.2 mg/dl (8.4-10.2); Carbon Dioxide 25 mmol/L (22.0-30.0); Creatinine Clearance Estimated 91 mL/min (50-200); Estimated Glomerular Filt Rate 134 ml/min (>60); GFR (African American) 162 ML/MIN (>60); Glucose 121 mg/dl (74-100)
[2020-05-14 21:37] LABS: Activated Partial Thrombo Time 29.6 seconds (22.8-30.6); INR 1.12 (0.9-1.1); Prothrombin Time 13.1 seconds (10.1-12.5)
[2020-05-14 22:06] LABS: Thyroid Stimulating Hormone 3.22 uIU/mL (0.465-4.68)
[2020-05-14 22:19] VITALS: BP 139/82; PULSE 73; RESP 18; O2SAT 97
[2020-05-14 23:00] VITALS: BP 144/85; PULSE 75; RESP 16; O2SAT 96
--- NOTE | 2020-05-14 23:04 | PC.NURSE ---
Aquiles speaking to Edward at this time in regards to admission.
[2020-05-14 23:10] LABS: Adenovirus,PCR Not Detected (NotDetected); Bordetella Pertussis Not Detected (NotDetected); Chlamydophila Pneumoniae, PCR Not Detected (NotDetected); Coronavirus 19, PCR Not Detected (NotDetected); Coronavirus 229E Not Detected (NotDetected); Coronavirus NL63 Not Detected (NotDetected); Coronavirus OC43 Not Detected (NotDetected); Coronovirus HKU1,PCR Not Detected (NotDetected); Human Metapneumovirus Not Detected (NotDetected); Influenza A, PCR Not Detected (NotDetected); Influenza AH1, 2009 Not Detected (NotDetected); Influenza AH1, PCR Not Detected (NotDetected); Influenza AH3,PCR Not Detected (NotDetected); Influenza B, PCR Not Detected (NotDetected); Mycoplasma Pneumoniae, PCR Not Detected (NotDetected); Parainfluenza 1, PCR Not Detected (NotDetected); Parainfluenza 2, PCR Not Detected (NotDetected); Parainfluenza 3, PCR Not Detected (NotDetected); Parainfluenza 4, PCR Not Detected (NotDetected); Respiratory Syncytial Virus Not Detected (NotDetected); Rhinovirus/Enterovirus Not Detected (NotDetected)
[2020-05-15] VITALS (8 sets, daily range): BP systolic 122–143; BP diastolic 64–86; PULSE 69–94; RESP 16–20; TEMP 36.4–37.3; O2SAT 94–97; BMI 25.5; BMI 56.5
[2020-05-15 00:18] LABS: Appearance,Urine CLEAR (Clear); Bilirubin,Urine Negative (Negative); Blood, Urine TRACE-I (Negative); Color,Urine YELLOW (Yellow); Glucose,Urine (UA) Negative (Negative); Ketones,Urine Negative (Negative); Leukocyte Esterase,Urine Negative (Negative); Microscopic, Urine URINE MICROSCOPIC (MICROSCOPIC); Nitrate,Urine Negative (Negative); Protein,Urine Negative (Negative)
[2020-05-15 00:31] LABS: RBC,Urine Occasional #/hpf (0-3); Squamous Epithelial Cell,Urine Occasional #/hpf (0-5)
[2020-05-15 00:32] LABS: Bacteria,Urine Trace /lpf
--- NOTE | 2020-05-15 00:33 | PC.NURSE ---
Pt uncooperative with bp cuff and pulse ox. He keeps removing them, resistive when attempts to redirect are made.
--- NOTE | 2020-05-15 01:07 | PC.NURSE ---
called lab t ask about timeframe on covid test, told it would be ~15min
--- NOTE | 2020-05-15 01:38 | PC.NURSE ---
PT ARRIVED TO FLOOR VIA STRETCHER FROM ED W/STAFF AT [id number]
--- NOTE | 2020-05-15 05:35 | PC.WOUNDNOTE ---
Wound Location: bruises to coccyx Length: Width: Depth: Undermining Y/N: Tunneling cm: Granulation %: Slough/necrotic tissue %: Inflammation/swelling Y/N: Pain and/or tenderness Y/N: Exudate: Serosanguinous Sanguinous Serosanguinous Seropurulent Purulent Color: Clear Adriane Cloudy/milky Drew Red Green Yellow Brown Orr Blue Consistency: Thick Thin Amount: None Scant Small Moderate Large Odor Y/N:
--- NOTE | 2020-05-15 08:33 | PC.NURSE ---
THIS RN LEFT MESSAGES FOR PT EVALUATION ON THE FOLLOWIN: NAPOLEON 0817: VIDYA 0820: PRASANNA. NO CALL BACKS
--- NOTE | 2020-05-15 09:15 | PC.NURSE ---
PHONE CALL RETURNED BY NAPOLEON CLEMENTS, WILL SEE PATIENT THIS AM
--- NOTE | 2020-05-15 11:43 | P.CONPHA_ITS ---
[facility] Pharmacy VTE Monitoring - Patient Demographics Admission date: 05/14/20 Report Date: 05/15/20 Time: 11:43 Allergies/Adverse Reactions: Patient Allergies No Known Allergies Allergy (Verified 04/19/20 09:51) Height: 1.73 m Weight: 168.8 kg Patient Problems: Current Active Problems Head trauma (Acute) Decreased functional mobility (Acute) - VTE Risk Labs: VTE Related Lab Results Hgb 13.6 g/dL (14.1-18.0) L 05/14/20 21:00 Hct 41.5 % (42.0-52.0) L 05/14/20 21:00 Plt Count 183 K/mm3 (142-424) 05/14/20 21:00 PT 13.1 seconds (10.1-12.5) H 05/14/20 21:00 INR 1.12 (0.9-1.1) H 05/14/20 21:00 APTT 29.6 seconds (22.8-30.6) 05/14/20 21:00 BUN 9 mg/dl (9-20) 05/14/20 21:00 Creatinine 0.60 mg/dl (0.66-1.25) L 05/14/20 21:00 Estimated Creat Clear 91 mL/min (50-200) 05/14/20 21:00 Was VTE Risk Assessment Performed: Yes VTE Risk Level: Moderate Risk - Prophylaxis VTE Prophylaxis Ordered?: Yes Types of VTE Prophylaxis: TEDS Knee High Location of Applied Device: Bilateral Lower Extremeties
--- NOTE | 2020-05-15 11:52 | HMH.HP ---
*Admission Date: 05/14/20 *Chief complaint: fall with head injury *History of present illness: Patient is a 69-year-old male who was admitted from the emergency room last night after sustaining a fall with head injury and scalp laceration. He is a very poor historian. As the history is relayed he fell from a standing height loss of consciousness. He has an underlying history of schizophrenia and dementia and is living in what sounds like a custodial setting. Patient has a history of left hip fracture. He cannot relay details pertaining to this. He is having no active chest pain or shortness of breathing, no sensation of arrhythmia. Patient has a history of DVT which is gleaned from the chart. He is on Xarelto, perhaps this is the reason as well. Will need at some point to stratify the risk benefit basis of continuing anticoagulation given his frequent falls. [facility] History Medical History: Reports:: Deep Vein Thrombosis, Hypertension, Pulmonary Embolism *Have you ever received a pneumonia vaccine?: (HAYLIE) *Have you received a flu vaccine this season?: (HAYLIE) Other Surgeries: Yes: Other - *Social History Smoking Status: Unknown if ever smoked Alcohol Intake: never Substance Use Type: denies use *Occupational Status:: disabled Housing: [facility]dc *Travel in the last 8 weeks: None Family Hx:: Unable to obtain Review of Systems - Constitutional Reports weakness - Eyes Denies change in vision - ENT Reports poor balance - *Cardiovascular Denies chest pain, Denies chest pain at rest, Denies leg pain with activity, Denies shortness of breath with activity - *Respiratory Denies chest congestion - *Gastrointestinal Denies abdominal pain, Denies vomiting blood, Denies black, tarry stools, Denies nausea - *Genitourinary Denies difficulty urinating - *Musculoskeletal Reports abnormal walking - Integumentary/Breasts Denies yellowing of the skin, Denies unusual bruising - *Neurologic Reports abnormal walking, Reports lack of coordination, Denies headache(s) - Psychiatric Reports difficulty concentrating - Endocrine Denies cold intolerance, Denies excessive sweating, Denies flushing - Hematologic/Lymphatic Denies easy bleeding, Denies easy bruising - Allergic/Immunologic Denies hives Meds Home Medications Medication Instructions Recorded Confirmed Type Benztropine Mesylate [Cogentin 1mg 1 mg PO TID 01/06/20 05/15/20 History tablet] Escitalopram Oxalate [Lexapro] 10 mg PO DAILY 01/06/20 05/15/20 History dilTIAZem HCL [Diltiazem 24Hr ER 360 mg PO DAILY 01/06/20 05/15/20 History (Cd)] haloperidoL [Haldol 5mg tablet] 5 mg PO AC 01/06/20 05/15/20 History haloperidoL [Haldol 5mg tablet] 10 mg PO HS 01/06/20 05/14/20 History oxycodone-acetaminophen 5 mg-325 1 tab PO TID PRN #42 tab 04/30/20 05/14/20 Rx mg tablet Rivaroxaban [Xarelto 20mg Tablet*] 20 mg PO HS 05/14/20 05/15/20 History Allergies Allergy/AdvReac Type Severity Reaction Status Date / Time No Known Allergies Allergy Verified 04/19/20 09:51 Exam Vital signs and Labs for Last 24 Hours: Temp Pulse Resp BP Pulse Ox 99.0 F 94 H 18 143/86 H 95 05/15/20 08:00 05/15/20 08:00 05/15/20 08:00 05/15/20 08:00 05/15/20 08:00 Laboratory Results - last 24 hr 05/14/20 21:00: WBC 6.5, RBC 4.95, Hgb 13.6 L, Hct 41.5 L, MCV 84.0, MCH 27.5, MCHC 32.7, RDW 13.6, Plt Count 183, MPV 8.1, Neut % (Auto) 70.8, Lymph % (Auto) 20.4, Hood % (Auto) 6.9, Eos % (Auto) 1.5, Baso % (Auto) 0.3, Neut # (Auto) 4.6, Lymph # (Auto) 1.3, Hood # (Auto) 0.5, Eos # (Auto) 0.1, Baso # (Auto) 0.0 05/14/20 21:00: PT 13.1 H, INR 1.12 H, APTT 29.6 05/14/20 21:00: Sodium 139, Potassium 4.1, Chloride 106, Carbon Dioxide 25, Anion Gap 12.1, BUN 9, Creatinine 0.60 L, Estimated Creat Clear 91, Estimated GFR 134, Est GFR ( Amer) 162, Glucose 121 H, Calcium 9.2, TSH 3.22 05/14/20 23:05: Chlamy pneumoniae PCR Not detected, Adenovirus (PCR) Not detected,
--- NOTE | 2020-05-15 13:04 | HMH.PHAINT ---
MEDICATION RECONCILIATION COMPLETED ON PATIENT USING MAR FROM [facility]. -SAMM DIALLO, URBANOD
--- NOTE | 2020-05-15 14:00 | ECG_ITS ---
APPROVED REPORT Exam: Resting ECG HR:97 bpm ECG Measurements Heart Rate 97 AXES WI 186 P QRSd 90 QRS 182 QT 374 T 114 QTc 474 Conclusion Normal sinus rhythm Right superior axis deviation Late r wave progression Abnormal ECG Electronically signed by : Laurent Singh, 05/15/2020 20:06:36
--- NOTE | 2020-05-15 18:36 | PC.NURSE ---
HE WAS ALERT TO PERSON, PT WAS TRYING TO GET OOB WITHOUT ASSISTANCE AND HAS POOR SAFETY AWARENESS, BED ALARM HAS REMAINED IN PLACE T/O SHIFT, SEIZURE PRECAUTIONS IN PLACE. PT DENIES PAIN, DOES NOT REQUIRE O2 SUPPORT. NO NEEDS AT THIS TIME.
--- NOTE | 2020-05-15 19:22 | PC.NURSE ---
THIS RN PROVIDED REPORT TO KALLIE, SRNA
--- NOTE | 2020-05-15 22:02 | PC.NURSE ---
DID ROUNDING WITH THE TECHS,EMPYTIED TRASH,AND LINENS,PASSED SNACKS. PATIENT HAD NO NEEDS AT THIS TIME.StaceyM
[2020-05-16 03:43] VITALS: BP 130/66; PULSE 73; RESP 16; TEMP 37; O2SAT 94
[2020-05-16 04:53] VITALS: BMI 24.9
--- NOTE | 2020-05-16 05:00 | PC.NURSE ---
EMPTIED TRASH AND LINENS REFILLED ICE PITCHERS. PT HAD NO NEEDS AT THIS TIME.Osiel
--- NOTE | 2020-05-16 06:47 | PC.NURSE ---
patient rested with eyes closed throughout night. Shows no s/s of acute distress noted at this time, call light within reach, bed at lowest level for safety, voices no concerns at this time; will continue to monitor.
[2020-05-16 07:42] VITALS: BP 144/84; PULSE 78; RESP 18; TEMP 36.8; O2SAT 96
[2020-05-16 08:00] VITALS: O2SAT 97
--- NOTE | 2020-05-16 13:48 | HMH.ACPN2 ---
Internal Medicine - PN: Subj *Date: 05/16/20 *Time: 13:48 Interval history: Patient had an uneventful night, voices no new complaints. Exam Vital signs and Labs for Last 24 Hours: Temp Pulse Resp BP Pulse Ox 98.3 F 78 18 144/84 H 97 05/16/20 07:42 05/16/20 07:42 05/16/20 07:42 05/16/20 07:42 05/16/20 08:00 I & O for Last 24 hours: Intake & Output 05/13/20 05/14/20 05/15/20 05/16/20 23:59 23:59 23:59 23:59 Intake Total 605 / 605 120 / 120 Output Total 1300 / 1300 Balance -695 / -695 120 / 120 Weight 200 lb 372 lb 2.244 oz 164 lb 4 oz - Constitutional no acute distress - *Routine HEENT Exam Head: Present: scalp tenderness. Absent: atraumatic Eye: Present: EOMI ENT: Present: mucous membranes moist - *Routine Neck Exam Present: supple. Absent: lymphadenopathy - *Routine Respiratory Exam Present: CTA bilaterally - *Routine Cardiovascular Exam Present: RRR - *Routine Abdominal Exam Present: soft, normoactive bowel sounds. Absent: tenderness - *Routine Extremities Exam Absent: cyanosis, clubbing, edema - *Routine Skin Exam Present: wounds Comments: Laceration at posterior scalp, dressing is clean and dry - *Routine Neurological Exam Present: alert, moving all extremities, vision grossly intact, hearing grossly intact. Absent: oriented X3, facial asymmetry - Routine Psychiatric Exam Absent: normal thought process, cooperative, good insight, good judgment Assessment and Plan (1) Dementia Status: Chronic Qualifiers: Dementia type: unspecified type Dementia behavioral disturbance: with behavioral disturbance Qualified Code(s): F03.91 - Unspecified dementia with behavioral disturbance Category: Medical Code(s): F03.90 - Unspecified dementia without behavioral disturbance (2) History of hip fracture Status: Chronic Category: Medical Code(s): Z87.81 - Personal history of (healed) traumatic fracture (3) Schizophrenia Status: Chronic Qualifiers: Schizophrenia type: unspecified Qualified Code(s): F20.9 - Schizophrenia, unspecified Category: Medical Code(s): F20.9 - Schizophrenia, unspecified (4) Decreased functional mobility Status: Chronic Category: Medical Code(s): R26.89 - Other abnormalities of gait and mobility (5) Head trauma Status: Acute Qualifiers: Encounter type: initial encounter Qualified Code(s): S09.90XA - Unspecified injury of head, initial encounter Category: Medical Code(s): S09.90XA - Unspecified injury of head, initial encounter (6) Fall Status: Acute Qualifiers: Encounter type: initial encounter Qualified Code(s): W19.XXXA - Unspecified fall, initial encounter Category: Medical Code(s): W19.XXXA - Unspecified fall, initial encounter (7) Scalp laceration Status: Acute Qualifiers: Encounter type: initial encounter Qualified Code(s): S01.01XA - Laceration without foreign body of scalp, initial encounter Category: Medical Code(s): S01.01XA - Laceration without foreign body of scalp, initial encounter - Assessment and plan all Dx Assessment and Plan for all problems:: Will continue current regimen, he remains in normal sinus rhythm. CT of the brain and C-spine were reviewed.
--- NOTE | 2020-05-16 14:47 | PC.NURSE ---
HE IS AO TO PERSON, CAN ANSWER BASIC QUESTIONS AND MAKE NEEDS KNOWN TO STAFF, TOLERATED AMBULATION TO THE RESTROOM WITH WALKER AND X1 ASSIST, VITAL SIGNS HAVE REMAINED STABLE, HE HAS REMOVED MULTIPLE IV'S, NON-COMPLIANT WHEN ATTEMPTING TO GAIN IV ACCESS. HE HAS DENIED PAIN, LUNG SOUNDS CTA, DENIES N/V/D. NO NEEDS AT THIS TIME.
[2020-05-16 15:05] VITALS: BP 129/78; PULSE 77; RESP 17; TEMP 36.7; O2SAT 94
--- NOTE | 2020-05-16 17:46 | HMH.PTEV ---
Physical Therapy Evaluation Rehab PT IP Evaluation Start: 05/14/20 23:07 Freq: ONCE Status: Active Protocol: Document 05/16/20 17:36 CLIFTON (Rec: 05/16/20 17:46 CLIFTON [id number]) Subjective/History History History Patient is a 69 year old male admitted to [facility] 05[facility]10 secondary to a fall at home causing a laceration on the back of his head. Patient has previously been diagnosed with schizophrenia and dementia. Patient is currently [facility] a [facility]. Previously ambulatory with RW, but has experienced multiple falls. Patient previously admitteted to rehab facilitiy for approx 1 months after a fall resulting in hip fracture. Patient has not been able to achieve PLOF per MD notes. Subjective Subjective I just feel weak. Rehab PT IP Eval Objective Appearance Patient Behavior Cooperative Patient Orientation Person Difficulty following instructions none Speech Pattern Mumbled Ambulation Patient Able to Ambulate Yes Ambulation Observation IP General Gait Pattern Observation Wide Based Gait,Shuffling Step Ambulation Distance (feet) 20 Ambulation Assistive Device Rolling Walker Ambulation Ability Contact Guard/Hand Hold Balance Ability to Arise Able, uses arms to help Sitting Balance Steady, safe Standing Balance Steady, wide stance Dynamic Sitting Balance Ability Normal Dynamic Standing Balance Ability Good Transfers Bed Transfer Ability Independent Sit to Stand Bed Transfer Ability Independent Pain Head Pain Intensity 0 ROM All Extremities PT ROM Status WFL MMT All Extremities PT MMT WFL Rehab PT IP prob,goals,plan Problems Date of Evaluation: 05/16/20 PT IP Problems Gait,Balance,Self care,Safety Rehab Potential Rehab Potential Good Plan PT Intervention Plan Gait,Balance,Self care,Safety, Therapeutic Exercise PT Plan Frequency BID Duration LOS Discharge Goals Ambulation Distance (feet) 50 Discharge Plan PT Discharge Plan Patient would benefit from b
--- NOTE | 2020-05-16 19:11 | PC.NURSE ---
THIS RN PROVIDED WC REPORT TO MIA HARRISON.
[2020-05-16 19:37] VITALS: BP 117/67; PULSE 85; RESP 18; TEMP 37.2; O2SAT 96
[2020-05-16 20:00] VITALS: PULSE 77; RESP 17; O2SAT 94
[2020-05-17 04:00] VITALS: BP 99/68; PULSE 88; RESP 18; TEMP 36.8; O2SAT 95
--- NOTE | 2020-05-17 04:48 | PC.NURSE ---
patient rested with eyes closed throughout shift; voiced no concerns; shows no s/s of acute distress at this time; call light within reach, bed at lowest level for safety; will continue to monitor.
[2020-05-17 05:03] VITALS: BMI 24.2
[2020-05-17 06:32] LABS: Basophils % 0.7 % (0.1-2.0); Eosinophils # 0.2 K/mm3 (0.0-0.4); Hemoglobin 13.5 g/dL (14.1-18.0); Lymphocytes # 1.8 K/mm3 (0.7-4.5); Lymphocytes % 33.3 % (10-50); Mean Corpuscular HGB Conc 32.8 g/dL (31.8-35.4); Mean Corpuscular Hemoglobin 27.2 pg (27.0-31.2); Mean Corpuscular Volume 82.8 fl (80-94); Mean Platelet Volume 7.9 fl (7.4-10.4); Monocytes # 0.3 K/mm3 (0.1-1.0); Monocytes % 5.6 % (1.7-9.3); Neutrophils # 3.1 K/mm3 (1.8-7.8); Neutrophils % 56.5 % (37.0-80.0); Platelet Count 185 K/mm3 (142-424); Red Blood Count 4.95 M/mm3 (4.60-6.20); Red Cell Distribution Width 13.6 % (11.5-17.5); White Blood Count 5.5 K/mm3 (4.8-10.8)
[2020-05-17 07:09] LABS: Thyroid Stimulating Hormone 2.29 uIU/mL (0.465-4.68)
[2020-05-17 07:52] LABS: Chloride 107 mmol/L (98-107); Potassium 4.1 mmoL/L (3.5-5.1); Sodium 139 mmol/L (136-145)
[2020-05-17 07:55] LABS: Alanine Aminotransferase 9 U/L (12-78); Albumin Level 3.6 g/dl (3.5-5.0); Albumin/Globulin Ratio 1.1 (1.1-1.8); Alkaline Phosphatase 118 U/L (38-126); Anion Gap 10.1 mEq/L (5-15); Aspartate Amino Transferase 24 U/L (17-59); Bilirubin,Total 0.6 mg/dl (0.2-1.3); Blood Urea Nitrogen 19 mg/dl (9-20); Carbon Dioxide 26 mmol/L (22.0-30.0); Creatinine Clearance Estimated 73 mL/min (50-200); Estimated Glomerular Filt Rate 112 ml/min (>60); GFR (African American) 136 ML/MIN (>60); Globulin 3.3 g/dL (1.3-3.2); Glucose 92 mg/dl (74-100); Total Protein,Serum 6.9 g/dl (6.3-8.2)
[2020-05-17 08:00] VITALS: BP 120/70; PULSE 79; RESP 16; TEMP 36.9; O2SAT 96
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
--- NOTE | 2020-05-17 09:05 | HMH.ACPN2 ---
Internal Medicine - PN: Subj *Date: 05/17/20 *Time: 08:15 Interval history: pt laying in bed states he feels ok and wants to return to [facility]. Exam Vital signs and Labs for Last 24 Hours: Temp Pulse Resp BP Pulse Ox 98.4 F 79 16 120/70 96 05/17/20 08:00 05/17/20 08:00 05/17/20 08:00 05/17/20 08:00 05/17/20 08:00 Laboratory Results - last 24 hr 05/17/20 06:03: WBC 5.5, RBC 4.95, Hgb 13.5 L, Hct 41.0 L, MCV 82.8, MCH 27.2, MCHC 32.8, RDW 13.6, Plt Count 185, MPV 7.9, Neut % (Auto) 56.5, Lymph % (Auto) 33.3, Dewey % (Auto) 5.6, Eos % (Auto) 4.0, Baso % (Auto) 0.7, Neut # (Auto) 3.1, Lymph # (Auto) 1.8, Dewey # (Auto) 0.3, Eos # (Auto) 0.2, Baso # (Auto) 0.0 05/17/20 06:03: Sodium 139, Potassium 4.1, Chloride 107, Carbon Dioxide 26, Anion Gap 10.1, BUN 19 D, Creatinine 0.70, Estimated Creat Clear 73, Estimated GFR 112, Est GFR ( Amer) 136, Glucose 92, Calcium 9.0, Total Bilirubin 0.6, AST 24, ALT 9 L, Alkaline Phosphatase 118, Total Protein 6.9, Albumin 3.6, Globulin 3.3 H, Albumin/Globulin Ratio 1.1, TSH 2.29 D I & O for Last 24 hours: Intake & Output 05/14/20 05/15/20 05/16/20 05/17/20 11:59 11:59 11:59 11:59 Intake Total 365 / 365 360 / 360 240 / 240 Output Total 900 / 900 400 / 400 400 / 400 Balance -535 / -535 -40 / -40 -160 / -160 Weight 372 lb 2.244 oz 164 lb 4 oz 160 lb - Constitutional no acute distress, thin, chronically ill appearing - *Routine HEENT Exam Head: Present: normocephalic Eye: Present: PERRL ENT: Present: mucous membranes moist - *Routine Neck Exam Present: supple. Absent: lymphadenopathy - *Routine Respiratory Exam Present: CTA bilaterally - *Routine Cardiovascular Exam Present: RRR - *Routine Abdominal Exam Present: soft, normoactive bowel sounds. Absent: tenderness - *Routine Extremities Exam Present: normal capillary refill. Absent: cyanosis, clubbing, edema - *Routine Skin Exam Present: warm. Absent: rash - *Routine Neurological Exam Present: alert - Routine Psychiatric Exam Present: normal affect Assessment and Plan (1) Dementia Status: Chronic Qualifiers: Dementia type: unspecified type Dementia behavioral disturbance: with behavioral disturbance Qualified Code(s): F03.91 - Unspecified dementia with behavioral disturbance Category: Medical Code(s): F03.90 - Unspecified dementia without behavioral disturbance (2) History of hip fracture Status: Chronic Category: Medical Code(s): Z87.81 - Personal history of (healed) traumatic fracture (3) Schizophrenia Status: Chronic Qualifiers: Schizophrenia type: unspecified Qualified Code(s): F20.9 - Schizophrenia, unspecified Category: Medical Code(s): F20.9 - Schizophrenia, unspecified (4) Decreased functional mobility Status: Chronic Category: Medical Code(s): R26.89 - Other abnormalities of gait and mobility (5) Head trauma Status: Acute Qualifiers: Encounter type: initial encounter Qualified Code(s): S09.90XA - Unspecified injury of head, initial encounter Category: Medical Code(s): S09.90XA - Unspecified injury of head, initial encounter (6) Fall Status: Acute Qualifiers: Encounter type: initial encounter Qualified Code(s): W19.XXXA - Unspecified fall, initial encounter Category: Medical Code(s): W19.XXXA - Unspecified fall, initial encounter (7) Scalp laceration Status: Acute Qualifiers: Encounter type: initial encounter Qualified Code(s): S01.01XA - Laceration without foreign body of scalp, initial encounter Category: Medical Code(s): S01.01XA - Laceration without foreign body of scalp, initial encounter - Assessment and plan all Dx Assessment and Plan for all problems:: rounded with dr clemens all orders per dr clemens ct chest-r/o pe pt xeralto was dc r/t freq falls
--- NOTE | 2020-05-17 10:44 | SW/DCPLANNER ---
Addendum entered by [facility] 05/19/20 12:40: Patient was set up with home health services thru [facility]: Renu has called to confirm. Addendum entered by [facility] 05/18/20 13:01: I have arranged [facility] for this patient. Addendum entered by [facility] 05/18/20 09:40: This patient will discharge back to [facility] today. [facility] will be set up once patient is stable for discharge. I will also set this patient up with [facility] home health services. [facility] will deliver rolling walker to this patient. Addendum entered by [facility] 05/17/20 14:55: Miya with [facility] has stated that patient will have to be private pay for walker due to only having [employer] insurance. [facility]. Addendum entered by [facility] 05/17/20 14:05: Don[facility] [facility] once medically stable. Donell has requested that patient have a rolling walker (will be ordered thru [facility]) along with home health services ([facility]) at time of discharge. Patient could potentially discharge later today or tomorrow. Original Note: This patient currently resides at [facility]. I have spoke with Donell from [facility] and she has stated that she will need to evaluate this patient prior to returning. I have asked that Donell come this morning to evaluate due to patient potentially being ready for discharge this afternoon. Patient was discharged from [facility] on 04/29/20 per Donell after SNF level of care for hip fracture. [facility] has stated that she does not have any beds available this time. Patient information has been faxed to Adriane with [facility] in case if placement is needed at time of discharge. I will follow up with Donell once she evaluates this patient.
--- NOTE | 2020-05-17 14:05 | PC.NURSE ---
pt would benefit from a walker rather than a cane d/t gait/mobility issues.
--- NOTE | 2020-05-17 15:57 | CA_ITS ---
APPROVED REPORT Left Lower Extremity Venous Study for DVT. Interlibrary Loan Specialist: ELI Indications Lower Extremity Pain: Left DVT of Lower Extremity: Left Shortness of breath hx dvt 02/2020 in LLE PTV, soleal vein. schizophrenia Risk Factors Prior Phlebitis/DVT Vein Imaging CFV (L): compressive, spontaneous, phasic, augmentation FEM (L): compressive, spontaneous, phasic, augmentation POP (L): compressive, spontaneous, phasic, augmentation PTV (L): Compressible GSV (L): compressive, spontaneous, phasic, augmentation SSV (L): Compressible Peroneals (L):Compressible GAS (L): Compressible Findings No evidence of DVT or superficial thrombophlebitis in the veins scanned of the left lower extremity. DVT seen in February 2020 in LLE PTV and soleal veins has resolved. Conclusion No evidence of DVT or superficial thrombophlebitis in the veins scanned of the left lower extremity. DVT seen in February 2020 in LLE PTV and soleal veins has resolved. Electronically signed by : Tino Vergara MD 05/18/2020 12:02:54
[2020-05-17 16:00] VITALS: BP 153/79; PULSE 71; RESP 16; TEMP 36.9; O2SAT 95
--- NOTE | 2020-05-17 19:25 | PC.NURSE ---
pt has done well today. pt uses the call light off and on. most of time pt just gets out of bed, bed alarm goes off and staff enters room and reeducates pt on importance of using call light. pt had a bm today. vss. will cont. to monitor.
[2020-05-17 20:00] VITALS: BP 114/72; PULSE 66; RESP 20; TEMP 36.9; O2SAT 97
--- NOTE | 2020-05-18 02:59 | PC.NURSE ---
No acute changes noted. Pt is A&O to self. Has not voiced any complaints this shift. Has slept well and has not tried to get OOB without assistance. VSS. Pt remains on RA. Lungs are CTA. BS active. Medications administered per apr. No concerns at this time. Call light within reach. Seizure pads and safety in place. Will continue to monitor.
[2020-05-18 04:00] VITALS: BP 118/74; PULSE 67; RESP 24; TEMP 37.1; O2SAT 97
[2020-05-18 06:00] VITALS: BMI 24.2
[2020-05-18 07:17] LABS: Basophils % 0.4 % (0.1-2.0); Eosinophils # 0.3 K/mm3 (0.0-0.4); Eosinophils % 5.1 % (0.1-12.0); Hematocrit 39.8 % (42.0-52.0); Hemoglobin 12.6 g/dL (14.1-18.0); Lymphocytes # 1.4 K/mm3 (0.7-4.5); Lymphocytes % 27.5 % (10-50); Mean Corpuscular HGB Conc 31.7 g/dL (31.8-35.4); Mean Corpuscular Hemoglobin 26.6 pg (27.0-31.2); Mean Corpuscular Volume 83.8 fl (80-94); Mean Platelet Volume 7.7 fl (7.4-10.4); Monocytes # 0.4 K/mm3 (0.1-1.0); Neutrophils # 3.1 K/mm3 (1.8-7.8); Platelet Count 184 K/mm3 (142-424); Red Blood Count 4.75 M/mm3 (4.60-6.20); Red Cell Distribution Width 13.7 % (11.5-17.5); White Blood Count 5.2 K/mm3 (4.8-10.8)
[2020-05-18 07:22] LABS: Chloride 104 mmol/L (98-107); Potassium 3.8 mmoL/L (3.5-5.1); Sodium 136 mmol/L (136-145)
[2020-05-18 07:25] LABS: Anion Gap 9.8 mEq/L (5-15); Blood Urea Nitrogen 19 mg/dl (9-20); Carbon Dioxide 26 mmol/L (22.0-30.0); Creatinine Clearance Estimated 73 mL/min (50-200); Estimated Glomerular Filt Rate 134 ml/min (>60); GFR (African American) 162 ML/MIN (>60)
[2020-05-18 07:26] LABS: Calcium 8.7 mg/dl (8.4-10.2); Glucose 96 mg/dl (74-100)
[2020-05-18 08:00] VITALS: BP 122/70; PULSE 55; RESP 17; TEMP 36.6; O2SAT 100
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
== END 2020-05-18 14:00 | disposition home or self-care (01) ==
LOC: ER 23:15 → 2ND 05-15 01:44
PROVIDERS: Emergency Medicine; Family Medicine; Nurse Practitioner Family; Admitting Provider Family Medicine; Emergency Provider Student in an Organized Health Care Education/Training Program; PCP Emergency Medicine; Visit Provider Emergency Medicine
DX: S09.90XA Unspecified injury of head, initial encounter (principal); F03.90 Unspecified dementia, unspecified severity, without behavioral disturbance, psychotic disturbance, mood disturbance, and anxiety; F20.9 Schizophrenia, unspecified; S01.01XA Laceration without foreign body of scalp, initial encounter; W18.30XA Fall on same level, unspecified, initial encounter; Z91.81 History of falling; Z86.718 Personal history of other venous thrombosis and embolism; I26.99 Other pulmonary embolism without acute cor pulmonale; I10 Essential (primary) hypertension; Z79.02 Long term (current) use of antithrombotics/antiplatelets; Z86.711 Personal history of pulmonary embolism
CPT/HCPCS: 70450; 71045; 71275; 72125; 72170; 80048; 80053; 81001; 84443; 85025; 85610; 85730; 87581; 87633; 87798; 90715; 93005; 93971; 96372; 97116; 97163; 97530; 99284; G0378; Q9967

== ENCOUNTER 2020-05-26 17:02 | Emergency (ER) | payer OTHER, SELFPAY ==
[2020-05-26 17:02] VITALS: BP 127/72; PULSE 68; RESP 16; TEMP 36.6; O2SAT 98; BMI 22.9
--- NOTE | 2020-05-26 17:03 | XR_ITS ---
PROCEDURE: XR KNEE LT 2V CLINICAL INDICATION: fall Posttraumatic pain COMPARISON: CR XR FEMUR LT 2V from 03/04/2020 CR XR TIBIA FIBULA LT 2V from 05/26/2020 FINDINGS: No acute fracture or dislocation. Mild osteoarthritic changes are involving the medial compartment of the knee.. A cutaneous nodular density is present along the popliteal fossa region medially. Please correlate with physical exam. IMPRESSION: No acute findings. Dictated by: Tino Vergara MD 05/27/2020 05:43 Tino Vergara MD in [facility] 05/27/2020 05:43
--- NOTE | 2020-05-26 17:05 | CT_ITS ---
PROCEDURE: CT HEAD/BRAIN WO CON CLINICAL INDICATION: fall Head injury with headache/pain, contusion, abrasion or hematoma COMPARISON: CT CT HEAD/BRAIN WO CON from 05/14/2020 TECHNIQUE: Axial images obtained. All CT scans at the facility use one or more dose reduction, viz: automated exposure control, ma/kV adjustment per patient size (including targeted exams where dose is matched to indication, i.e. head), or iterative reconstruction technique. FINDINGS: No midline shift, mass effect, intracranial hemorrhage, hydrocephalus, or extra-axial fluid collection is evident. There is generalized atrophy with hypoattenuation of the periventricular white matter consistent with microangiopathic changes. The calvarium has an unremarkable appearance. No mastoid effusion. Mild mucosal thickening of the ethmoid sinuses. IMPRESSION: No acute intracranial finding Dictated by: Tino Vergara MD 05/27/2020 07:28 Tino Vergara MD in [facility] 05/27/2020 07:28
--- NOTE | 2020-05-26 17:05 | CT_ITS ---
PROCEDURE: CT CERVICAL SPINE WO CON CLINICAL INDICATION: fall Posttraumatic pain, Neck injury with pain, contusion/abrasion or hematoma, cervical sprain/strain the COMPARISON: CT CT CERVICAL SPINE WO CON from 05/14/2020 TECHNIQUE: Axial images obtained with sagittal and coronal reformats. All CT scans at the facility use one or more dose reduction, viz: automated exposure control, ma/kV adjustment per patient size (including targeted exams where dose is matched to indication, i.e. head), or iterative reconstruction technique. Axial spiral CT scanning performed of the cervical spine beginning at the base of the skull and continuing to the upper T-spine. 3-D multiplanar reconstruction with 3-D manipulation of volumetric data set in image rendering was completed by the radiologist and/or technologist with the supervision of the radiologist on independent workstation. FINDINGS: No acute fracture or dislocation. Hypertrophic changes of the Don process. C2-C3. Ossification of the posterior longitudinal ligament. C3-C4: Degenerative disc disease with right-sided uncovertebral hypertrophy with right lateral recess narrowing and severe right foraminal narrowing. C4-C5: Degenerative disc disease with ossification of the posterior longitudinal ligament and right-sided foraminal narrowing from facet and uncovertebral hypertrophy. C5-C6: Degenerative disc disease with endplate hypertrophic change with mild bilateral foraminal narrowing. C6-C7: Degenerative disc disease with endplate hypertrophy with canal stenosis and bilateral foraminal narrowing. C7-T1: Unremarkable. Lung apices are clear. IMPRESSION: 1. No acute fracture or dislocation. 2. Multilevel cervical spondylosis. Please see above for detailed description at each level Dictated by: Tino Vergara MD 05/27/2020 07:31 Tino Vergara MD in [facility] 05/27/2020 07:31
--- NOTE | 2020-05-26 17:12 | PC.NURSE ---
Modesta Simon, SRNA sitting one on one at this time due to patient being an increased fall risk per MD request
--- NOTE | 2020-05-26 17:28 | HMH.EDGENADL ---
ED Disposition Clinical Impression: Neck pain Accident due to mechanical fall without injury Qualifiers: Encounter type: initial encounter Qualified Code(s): W19.XXXA - Unspecified fall, initial encounter Disposition: Home, Self-Care Condition on Discharge: Good Instructions: How to Prevent Falls Additional Instructions: Return if recurrent falls or any new symptoms Referrals: PCP,No [Non-Staff] - - Critical Care Critical Care Time: No Attestation: On 05/26/20, the high probability of a clinically significant, sudden or life threatening deterioration of the following system(s) required my full and direct attention, intervention and personal management. The time I documented below is in addition to time spent performing reported procedures but includes the following listed in this critical care notation. Medical Decision Making - Medical Records Medical records reviewed: Yes: I reviewed the patient's medical records. - Nicolás Inquiry Pt receiving controlled substance: No Vital Signs: 05/26/20 17:02 05/26/20 18:30 05/26/20 19:01 Temperature 98 F Temperature Source Oral Pulse Rate 93 H 88 Pulse Rate [Radial] 68 Respiratory Rate 16 16 16 Blood Pressure 122/65 132/68 Blood Pressure [Right Arm] 127/72 Blood Pressure Mean [Right Arm] 90 Blood Pressure Position Sitting Sitting Blood Pressure Position [Right Arm] Sitting 02 Sat by Pulse Oximetry 98 98 98 Oxygen Delivery Method Room Air Room Air Orders (Tests/Meds): ORDERS Category Date Time Status CT cervical spine wo con Stat Cat Scan 05/26/20 17:[address] head/brain wo con Stat Cat Scan 05/26/20 17:05 Taken Knee XR left 2 views [XR knee LT 2V] Stat Exams 05/26/20 17:03 Taken XR tibia fibula LT 2V Stat Exams 05/26/20 17:03 Taken Medical Decision Narrative: Patient presents the emergency department after reported fall. No outward signs of trauma. He does complain of neck pain but there is no neck tenderness elicited on palpation. C-spine precautions maintained with c-collar in place. It looks as if patient was stopped on Xarelto due to frequent falls. Still concern for intracranial abnormality so CT head and C-spine will be obtained to ensure no ICH/skull fracture any cervical spine fracture or subluxation. Due to his left anderson pain x-rays of his left knee and anderson will be obtained also. No abrasions or lacerations noted. Patient appears to be at his baseline mental status with no signs of psychosis. CTs demonstrate no cervical spine fracture or subluxation with a normal CT head scan. C-spine cleared patient able to range neck without difficulty or pain. X-rays demonstrate based on my read no bony abnormalities or dislocations. At this time I do believe patient is safe be discharged back to [facility]. I have instructed him to be careful as he has since frequent falls. Did broach the topic of care home placement but patient did not appear to be interested at this time. Patient discharged in stable condition. Patient will be brought back to the emergency department for recurrent symptoms. Assessment: Mechanical fall, reported Neck pain Schizophrenia Disposition: Home with follow-up General Adult HPI - General Stated complaint: fall Time Seen by Provider: 05/26/20 18:00 - History of Present Illness HPI narrative: Patient is a 69-year-old male history of schizophrenia, A. fib presenting with mechanical fall. Patient presents from [facility] after reported fall down several steps. Staff there concerned he may have hit his head. He states he did not lose consciousness but does endorse some mild neck pain. He also endorses some left knee and lower leg pain. No difficulty ambulating. He is unable to qualify or characterize the pain force. No other symptoms to report per patient or per staff at facility per EMS report. - Related Data Home Medications Medi
--- NOTE | 2020-05-26 17:37 | PC.NURSE ---
patient to CT
[2020-05-26 18:30] VITALS: BP 122/65; PULSE 93; RESP 16; O2SAT 98
[2020-05-26 19:01] VITALS: BP 132/68; PULSE 88; RESP 16; O2SAT 98
--- NOTE | 2020-05-26 19:33 | PC.NURSE ---
Dickson Hitchcock notified of pt being ready for discharge
[2020-05-26 19:46] VITALS: BP 145/92; PULSE 81; RESP 18; TEMP 36.8; O2SAT 99
== END 2020-05-26 20:00 | disposition home or self-care (01) ==
PROVIDERS: Emergency Provider Emergency Medicine; PCP Emergency Medicine
DX: M54.2 Cervicalgia (principal); S80.02XA Contusion of left knee, initial encounter; W01.0XXA Fall on same level from slipping, tripping and stumbling without subsequent striking against object, initial encounter; Y92.199 Unspecified place in other specified residential institution as the place of occurrence of the external cause; I48.91 Unspecified atrial fibrillation; F20.9 Schizophrenia, unspecified; Z79.899 Other long term (current) drug therapy
CPT/HCPCS: 70450; 72125; 73560; 73590; 99282

== ENCOUNTER → 2020-05-31 10:01 | Outpatient (CLI) | payer OTHER, SELFPAY ==
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
== END ==
PROVIDERS: PCP Emergency Medicine; Visit Provider Orthopaedic Surgery
DX: S72.002A Fracture of unspecified part of neck of left femur, initial encounter for closed fracture (principal)
CPT/HCPCS: 73502

== ENCOUNTER 2020-07-02 06:02 | Emergency (ER) | payer SELFPAY ==
[2020-07-02 06:06] VITALS: BP 135/84; PULSE 61; RESP 18; TEMP 36.9; O2SAT 97; BMI 25.5
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
--- NOTE | 2020-07-02 06:20 | CT_ITS ---
PROCEDURE INFORMATION: Exam: CT Head Without Contrast Exam date and time: 07/02/2020 6:20 AM Age: 70 years old Clinical indication: Injury or trauma; Blunt trauma (contusions or hematomas); Patient HX: Un witnessed fall denies hitting head TECHNIQUE: Imaging protocol: Computed tomography of the head without contrast. Radiation optimization: All CT scans at this facility use at least one of these dose optimization techniques: automated exposure control; mA and/or kV adjustment per patient size (includes targeted exams where dose is matched to clinical indication); or iterative reconstruction. COMPARISON: CT HEAD/BRAIN WO CON 05/26/2020 5:26 PM FINDINGS: Brain: No intracranial hemorrhage. No midline shift or mass effect appreciated. There is mild global parenchymal volume loss, typically on an age-related basis. There is some mild heterogeneity of the white matter attenuation noted, consistent with chronic white matter ischemic changes. The nova-white matter differentiation is otherwise unremarkable. No evidence of evolved territorial infarct or cerebral edema. Cerebral ventricles: Slightly prominent ventricles likely secondary to cerebral volume loss. Paranasal sinuses: Ethmoid sinus mucosal thickening. Mastoid air cells: Visualized mastoid air cells are well aerated. Bones/joints: Unremarkable. No acute fracture. Soft tissues: Unremarkable. IMPRESSION: 1. No acute intracranial process noted. 2. Age-related and chronic changes seen, as above. 3. Mild paranasal sinusitis.
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
--- NOTE | 2020-07-02 06:54 | PC.NURSE ---
pt back from ct/xray
--- NOTE | 2020-07-02 07:19 | HMH.EDUPEXT ---
ED Disposition Clinical Impression: Fall Qualifiers: Encounter type: initial encounter Qualified Code(s): W19.XXXA - Unspecified fall, initial encounter Wrist injury Qualifiers: Encounter type: initial encounter Laterality: right Qualified Code(s): S69.91XA - Unspecified injury of right wrist, hand and finger(s), initial encounter Disposition: Home, Self-Care Condition on Discharge: Good Instructions: DI for Wrist Strain Additional Instructions: wear splint over the next week Referrals: Freddie Willis MD [Primary Care Provider] - - Critical Care Critical Care Time: No Attestation: On 07/02/20, the high probability of a clinically significant, sudden or life threatening deterioration of the following system(s) required my full and direct attention, intervention and personal management. The time I documented below is in addition to time spent performing reported procedures but includes the following listed in this critical care notation. Medical Decision Making - Medical Records Medical records reviewed: Yes: I reviewed the patient's medical records. - Nicolás Inquiry Pt receiving controlled substance: No Vital Signs: 07/02/20 06:06 07/02/20 07:26 Temperature 98.4 F Temperature Source Oral Pulse Rate 64 Pulse Rate [Right] 61 Respiratory Rate 18 16 Blood Pressure 125/87 Blood Pressure [Right Arm] 135/84 Blood Pressure Mean [Right Arm] 101 Blood Pressure Source [Right Arm] Automatic Cuff Blood Pressure Position Sitting 02 Sat by Pulse Oximetry 97 98 Oxygen Delivery Method Room Air Room Air - Lab Data Lab results reviewed: Yes: I reviewed the patient's lab results. - Radiology Data #1 Image(s): Chest, Forearm, Wrist, Hand, Pelvis Image Reviewed: Yes I reviewed the patient's radiology image Preliminary Findings: No Fracture Seen - CT Data CT Scan: Head, C-Spine Time Received: 07:[address] Reviewed: Yes: I have viewed the radiologist's interpretation Preliminary Findings: No Fracture Seen Medical Decision Narrative: no fx seen Upper Extremity HPI - General Chief Complaint: Extremity Injury, Upper Stated Complaint: fall Time Seen by Provider: 07/02/20 06:30 Mode of Arrival: EMS Source of Information: Patient, EMS, Medical Record Limitations: Psychological Description of Symptoms (Recalled from ER Triage Doc. by RN): Pt c/o pain, tenderness, and swelling to his right wrist. [facility], pt was trying to put arm through jacket when he lost his balance resulting in him falling. There is a small abrasion with hematoma and swelling to posterior wrist and hand. Pt denies any LOC or hitting head from fall. Pt able to move all limbs and ambulated with staff at bedside off of EMS stretcher. Pt is A&Ox3. - History of Present Illness HPI narrative: fall this am with injury to wrist and upper ext at custodial - MD complaint: injury to: right, forearm, wrist Onset (ago): hour(s) Other Extremity Injury: Right: wrist, forearm Other injuries: none Handedness: right Place: home Severity: moderate Context: fall Associated symptoms: denies other symptoms - Related Data Home Medications Medication Instructions Recorded Confirmed Benztropine Mesylate [Cogentin 1mg 1 mg PO TID 01/06/20 07/02/20 tablet] Escitalopram Oxalate [Lexapro] 10 mg PO DAILY 01/06/20 07/02/20 dilTIAZem HCL [Diltiazem 24Hr ER 360 mg PO DAILY 01/06/20 07/02/20 (Cd)] haloperidoL [Haldol 5mg tablet] 5 mg PO DAILY 01/06/20 07/02/20 haloperidoL [Haldol 5mg tablet] 10 mg PO HS 01/06/20 07/02/20 Previous Rx's Medication Instructions Recorded oxycodone-acetaminophen 10 mg-325 1 tab PO Q8H PRN #90 tab 05/31/20 mg tablet Allergies Allergy/AdvReac Type Severity Reaction Status Date / Time No Known Allergies Allergy Verified 05/31/20 10:56 [facility] History - Hepatitis A Screen Drug use history?: No High risk sexual behaviors?: No History of sexually transmitted infection?: No Currently
[2020-07-02 07:26] VITALS: BP 125/87; PULSE 64; RESP 16; O2SAT 98
--- NOTE | 2020-07-02 08:05 | PC.NURSE ---
pt given breakfast tray
[2020-07-02 08:21] VITALS: BP 123/74; PULSE 74; RESP 16; TEMP 36.6; O2SAT 98
== END 2020-07-02 08:23 | disposition home or self-care (01) ==
PROVIDERS: Emergency Provider Emergency Medicine; PCP Emergency Medicine
DX: S63.501A Unspecified sprain of right wrist, initial encounter (principal); W01.0XXA Fall on same level from slipping, tripping and stumbling without subsequent striking against object, initial encounter; Y92.199 Unspecified place in other specified residential institution as the place of occurrence of the external cause; I10 Essential (primary) hypertension; F17.210 Nicotine dependence, cigarettes, uncomplicated; Z86.718 Personal history of other venous thrombosis and embolism; Z79.899 Other long term (current) drug therapy
CPT/HCPCS: 29125; 70450; 71045; 72125; 72170; 73090; 73110; 73130; 99282

== ENCOUNTER 2022-08-17 15:32 | Emergency (ER) | payer OTHER, SELFPAY ==
--- NOTE | 2022-08-17 15:31 | ECG_ITS ---
APPROVED REPORT Exam: Resting ECG HR:55 bpm ECG Measurements Heart Rate 55 AXES WA 290 P 7 QRSd 94 QRS -20 QT 473 T 44 QTc 461 Conclusion SINUS BRADYCARDIA WITH FIRST DEGREE AV BLOCK PROLONGED QT INTERVAL ABNORMAL ECG UNCONFIRMED REPORT Electronically signed by : Laurent Singh MD 08/18/2022 17:17:21
[2022-08-17 15:33] VITALS: BP 92/59; PULSE 56; RESP 16; TEMP 36.4; O2SAT 95; BMI 26.7
[2022-08-17 15:51] VITALS: BP 92/62; PULSE 53; RESP 16; O2SAT 94
--- NOTE | 2022-08-17 15:55 | XR_ITS ---
FINAL REPORT CLINICAL HISTORY: hypotension, passed out and fell. COMPARISON: 07/02/2020 FINDINGS: SINGLE VIEW CHEST The heart size is normal. The mediastinum is normal. There is mild left lung opacities may represent atelectasis or pneumonia. There is no pneumothorax. IMPRESSION: Mild left lung opacities, may represent atelectasis or pneumonia Reviewed, Interpreted and Dictated by Devonte Ribeiro III, MD Transcribed by Pooja Yan Authenticated and [facility]
--- NOTE | 2022-08-17 15:55 | CT_ITS ---
FINAL REPORT CLINICAL HISTORY: fall. Hypotension, passed out and fell. COMPARISON: 07/02/2020 FINDINGS: Axial CT images of the cervical spine were obtained without contrast. Sagittal and coronal reformatted images were also obtained. This study was performed with techniques to keep radiation doses as low as reasonably achievable (ALARA). Individualized dose reduction techniques using automated exposure control or adjustment of mA and/or kV according to the patient''s size were employed. There is no evidence of fracture or dislocation. There are multilevel mild degenerative changes with osteophytes. There is mild central canal stenosis at C3-4. IMPRESSION: Mild multilevel degenerative changes, visually stable since previous. Reviewed, Interpreted and Dictated by Devonte Ribeiro III, MD Transcribed by Halle Holliday Authenticated and [facility]
--- NOTE | 2022-08-17 15:55 | CT_ITS ---
FINAL REPORT CLINICAL HISTORY: fall. passed out and fell, hypotension. COMPARISON: 07/02/2020 FINDINGS: Axial images of the head were obtained without contrast. Coronal reformatted images were also obtained. This study was performed with techniques to keep radiation doses as low as reasonably achievable (ALARA). Individualized dose reduction techniques using automated exposure control or adjustment of mA and/or kV according to the patient''s size were employed. There is generalized age-appropriate atrophy. Periventricular low-attenuation areas are seen consistent with mild chronic ischemic changes. There is no evidence of intracranial hemorrhage or mass. There is no evidence of acute infarct. There is no evidence of shift of the midline structures. No skull abnormality is seen on the bone window images. IMPRESSION: Atrophy and mild periventricular chronic ischemic changes. No acute intracranial abnormality identified. Reviewed, Interpreted and Dictated by Devonte Ribeiro III, MD Transcribed by Halle Holliday Authenticated and [facility]
[2022-08-17 16:17] LABS: Chloride 104 mmol/L (98-107); Potassium 3.6 mmoL/L (3.5-5.1); Sodium 141 mmol/L (136-145)
[2022-08-17 16:19] LABS: Basophils % 0.3 % (0.1-2.0); Eosinophils # 0.2 K/mm3 (0.0-0.4); Eosinophils % 2.6 % (0.1-12.0); Hematocrit 47.6 % (42.0-52.0); Hemoglobin 15.5 g/dL (14.1-18.0); Lymphocytes # 2.4 K/mm3 (0.7-4.5); Lymphocytes % 29.5 % (10-50); Mean Corpuscular HGB Conc 32.4 g/dL (31.8-35.4); Mean Corpuscular Hemoglobin 27.7 pg (27.0-31.2); Mean Corpuscular Volume 85.3 fl (80-94); Mean Platelet Volume 9.1 fl (7.4-10.4); Monocytes # 0.6 K/mm3 (0.1-1.0); Monocytes % 7.2 % (1.7-9.3); Neutrophils # 4.9 K/mm3 (1.8-7.8); Neutrophils % 60.3 % (37.0-80.0); Platelet Count 235 K/mm3 (142-424); Red Blood Count 5.58 M/mm3 (4.60-6.20); Red Cell Distribution Width 13.8 % (11.5-17.5); White Blood Count 8.2 K/mm3 (4.8-10.8)
[2022-08-17 16:20] LABS: Alanine Aminotransferase 21 U/L (12-78); Albumin Level 4.3 g/dl (3.5-5.0); Albumin/Globulin Ratio 1.1 (1.1-1.8); Alkaline Phosphatase 79 U/L (38-126); Anion Gap 15.6 mEq/L (5-15); Aspartate Amino Transferase 30 U/L (17-59); Bilirubin,Total 0.7 mg/dl (0.2-1.3); Blood Urea Nitrogen 17 mg/dl (9-20); Carbon Dioxide 25 mmol/L (22.0-30.0); Creatinine Clearance Estimated 80 mL/min (50-200); Estimated Glomerular Filt Rate 66 ml/min (>60); GFR (African American) 80 ML/MIN (>60); Globulin 3.8 g/dL (1.3-3.2); Total Protein,Serum 8.1 g/dl (6.3-8.2)
[2022-08-17 16:21] LABS: Calcium 9.8 mg/dl (8.4-10.2); Glucose 153 mg/dl (74-100)
[2022-08-17 16:26] LABS: INR 1.11 (0.9-1.1); Prothrombin Time 11.9 seconds (10.1-12.5)
--- NOTE | 2022-08-17 16:31 | PC.NURSE ---
pt ambulatory to restroom without complications
[2022-08-17 16:36] LABS: Troponin I < 0.01 ng/ml (0.00-0.034)
--- NOTE | 2022-08-17 18:07 | PC.NURSE ---
PT BEEN UP AMBULATING TO WITH NO PROBLEMS AND IS REQUESTING TO GO BACK TO [facility]
--- NOTE | 2022-08-17 18:07 | HMH.EDGENADL ---
Discharge Plan Disposition Patient Disposition: Home, Self-Care Condition: Good Chief Complaint: Fall Prescriptions Prescriptions: No Action oxycodone-acetaminophen 10-325 mg tablet 1 tab PO Q8H PRN (Reason: PAIN) Qty: 90 0RF haloperidol 5 MG tablet 10 mg PO HS haloperidol 5 MG tablet 5 mg PO DAILY diltiazem HCl 360 MG capsule,extended release 24hr 360 mg PO DAILY benztropine 1 MG tablet 1 mg PO TID Rx Instructions: escitalopram oxalate 10 MG tablet 10 mg PO DAILY Referrals Follow up/Referrals: Freddie Willis MD [Primary Care Provider] - See instructions Activity Restrictions/Add. Instructions Additional Instructions/Restrictions: Home medication as directed. Follow-up PCP in 1 to 2 days Clinical Impressions Clinical Impression: Fall Qualifiers: Encounter type: initial encounter Qualified Code(s): W19.XXXA - Unspecified fall, initial encounter Discharge ED Provider: Tutu Riley General Adult HPI General Chief complaint: Fall Stated complaint: hypotension/syncope Time Seen by Provider: 08/17/22 18:06 Mode of Arrival: EMS Source of Information: Patient Limitations: No Limitations Description of Symptoms (Recalled from ER Triage Doc. by RN): Presents to ED with complaints of a fall that occured while standing in line. Patient reports syncope however ? LOC? PAtient denies pain at this time no further complaints History of Present Illness HPI narrative: 72yo M presents to the ER secondary to mechanical fall. Denies head strike or LOC. Denies pain. No shortness of breath. Patient states he feels well and is requesting to go back to his room at [facility] Related Data Home Medications Medication Instructions Recorded Confirmed benztropine 1 mg tablet 1 mg PO TID EPS symptoms 01/06/20 07/02/20 diltiazem HCl 360 mg 360 mg PO DAILY Hypertension 01/06/20 07/02/20 capsule,extended release 24 hr escitalopram oxalate 10 mg tablet 10 mg PO DAILY Depression 01/06/20 07/02/20 haloperidol 5 mg tablet 5 mg PO DAILY Anxiety 01/06/20 07/02/20 haloperidol 5 mg tablet 10 mg PO HS Anxiety 01/06/20 07/02/20 Previous Rx's Medication Instructions Recorded oxycodone-acetaminophen 10 mg-325 1 tab PO Q8H PRN PAIN #90 tabs 05/31/20 mg tablet Allergies Allergy/AdvReac Type Severity Reaction Status Date / Time No Known Allergies Allergy Verified 05/31/20 10:56 [facility] Disclaimer: The information contained in this section may have been updated after the patient was seen, as this information can be updated by other users. Social History Smoking Status: Never smoker alcohol intake: never substance use type: denies use current occupational status: disabled Travel in the last 8 weeks: None housing: skilled nursing caffeine: Yes ROS Obtained: Yes Systems reviewed as appropriate & no additional complaints except as documented Physical Exam General General appearance: alert and in no apparent distress Comment: Very hard of hearing Head Head exam: atraumatic and normocephalic Eye Eye exam: Present normal appearance and PERRL ENT ENT exam: Present normal oropharynx Neck Neck exam: Present normal inspection, full ROM and trachea midline Chest Chest inspection: Present symmetric chest wall rise Respiratory Respiratory exam: Present normal lung sounds bilaterally; Absent respiratory distress or wheezes Cardiovascular Cardiovascular exam: Present regular rate, normal rhythm and normal heart sounds Abdominal Exam Abdominal exam: Present soft and normal bowel sounds; Absent distention, tenderness, guarding or rebound Extremities Exam Extremities exam: Present full ROM and normal capillary refill; Absent tenderness or edema Back Exam Back exam: Absent tenderness Neurological Exam Neurological exam: Present alert, oriented X3 and CN II-XII intact Psychiatric Psychiatric exam: Present norm
[2022-08-17 18:10] VITALS: BP 98/66; PULSE 58; RESP 16; O2SAT 95
[2022-08-17 18:23] VITALS: BP 98/66; PULSE 58; RESP 16; TEMP 36.4; O2SAT 95
--- NOTE | 2022-08-17 18:23 | PC.NURSE ---
[facility] called for transport vehicle back to [facility]. They will call us back
--- NOTE | 2022-08-17 19:17 | PC.NURSE ---
Report handed off to [employer] shift lead
== END 2022-08-17 19:19 | disposition home or self-care (01) ==
PROVIDERS: Emergency Provider Family Medicine; PCP Emergency Medicine
DX: R55 Syncope and collapse (principal); R00.1 Bradycardia, unspecified; I44.0 Atrioventricular block, first degree; W19.XXXA Unspecified fall, initial encounter
CPT/HCPCS: 70450; 71045; 72125; 80053; 84484; 85025; 85610; 93005; 99285